=== PATIENT | female | born 1935 | race Caucasian/White ===

== ENCOUNTER 2019-05-17 16:10 | Outpatient (CLI) | payer MEDICARE, OTHER, SELFPAY ==
--- NOTE | 2019-05-17 | CTR_ITS ---
PROCEDURE INFORMATION: Exam: CT Lumbar Spine Without Contrast Exam date and time: 05/17/2019 4:46 PM Age: 83 years old Clinical indication: Injury or trauma; Fall; Initial encounter; Blunt trauma (contusions or hematomas); Additional info: Fall; Lumbar tenderness TECHNIQUE: Imaging protocol: Computed tomography images of the lumbar spine without contrast. Total DLP: 1645.79 mGy-cm Radiation optimization: All CT scans at this facility use at least one of these dose optimization techniques: automated exposure control; mA and/or kV adjustment per patient size (includes targeted exams where dose is matched to clinical indication); or iterative reconstruction. COMPARISON: Lumbar Spine Flex/Extens [id number] 08/08/2017 3:05 PM FINDINGS: Vertebrae: There is severe scoliosis of the lumbar spine with approximately 42 degrees of curvature from T11 through L2 concave to the right approximately 30 degrees of curvature concave to the left from T3 through S1. No fracture is identified. Discs/Spinal canal/Neural foramina: There is severe narrowing of all of the intervertebral disc spaces with spurring along the right side of the upper lumbar spine and the left side of the lower lumbar spine. There is slight lateral subluxation towards the left at L3-L4 and there may be mild foraminal narrowing on the left side at L4-L5 and L5-S1. Vasculature: Atherosclerotic changes are present in the abdominal aorta without evidence of aneurysm. Soft tissues: Unremarkable. CT/CT lumbar spine wo con* [id number] IMPRESSION: Advanced degenerative changes and scoliosis in the lumbar spine. No fracture is identified. Radiation Dose CTDIVOL = (mGy): DLP = 1645.79 (mGy-cm)
--- NOTE | 2019-05-17 | CTR_ITS ---
PROCEDURE INFORMATION: Exam: CT Pelvis Without Contrast; Skeletal Exam date and time: 05/17/2019 4:46 PM Age: 83 years old Clinical indication: Injury or trauma; Fall; Initial encounter; Blunt trauma (contusions or hematomas); Bilateral; Pelvic region; Additional info: Fall; Pelvis pain TECHNIQUE: Imaging protocol: Computed tomography images of the pelvis without contrast. Exam focused on the skeletal structures. Total DLP: 264.79 mGy-cm Radiation optimization: All CT scans at this facility use at least one of these dose optimization techniques: automated exposure control; mA and/or kV adjustment per patient size (includes targeted exams where dose is matched to clinical indication); or iterative reconstruction. COMPARISON: No relevant prior studies available. FINDINGS: Bones/joints: No acute fracture is identified. There are old healed fractures of the left inferior and superior pubic rami. Degenerative changes are present in the lower lumbar spine and in the pubic symphysis. Soft tissues: Unremarkable. CT/CT pelvis con [id number] IMPRESSION: No acute fracture is identified. Radiation Dose CTDIVOL = (mGy): DLP = 264.79 (mGy-cm)
== END 2019-05-17 16:11 | disposition home or self-care (01) ==
LOC: RAD 16:17
PROVIDERS: Family Provider Family Medicine; PCP Family Medicine; Visit Provider Family Medicine
DX: M54.5 Low back pain (principal); R10.2 Pelvic and perineal pain; M25.551 Pain in right hip; W19.XXXA Unspecified fall, initial encounter
CPT/HCPCS: 72131; 72192

== ENCOUNTER 2020-02-22 13:08 | Outpatient (CLI) | payer MEDICARE, OTHER, SELFPAY ==
--- NOTE | 2020-02-22 13:17 | MM_ITS ---
WS: [id number] BILATERAL DIGITAL SCREENING MAMMOGRAPHY WITH CAD CLINICAL INFORMATION: SCREENING HISTORY: Screening mammogram. No current complaints. COMPARISON: [id number] TECHNIQUE: Bilateral CC and MLO views. FINDINGS: The breasts are composed of heterogeneous fibroglandular density tissue, which can limit the detectio n of small underlying mass lesions. No suspicious mass, asymmetry, calcifications, or architectural d istortion. No evidence of malignancy. Punctate and lucent center calcifications. Vascular calcificati on. MM/[place] [id number] IMPRESSION: BI-RADS: 2-Benign FOLLOW UP: 1 Year Follow-up Recommend return to annual screening mammography.
== END 2020-02-22 13:09 | disposition home or self-care (01) ==
LOC: RADSHAW 13:13
PROVIDERS: Family Provider Family Medicine; PCP Family Medicine; Visit Provider Family Medicine
DX: Z12.31 Encounter for screening mammogram for malignant neoplasm of breast (principal)
CPT/HCPCS: 77067

== ENCOUNTER 2021-04-23 10:23 | Outpatient (CLI) | payer MEDICARE, OTHER, SELFPAY ==
--- NOTE | 2021-04-23 10:34 | MM_ITS ---
WS: [id number] SCREENING DIGITAL MAMMOGRAM WITH CAD HISTORY: SCREENING COMPARISON: 12/09/2014, 02/22/2020, 01/16/2019 Bilateral CC and MLO views submitted. Computer aided detection analyzed. Breast composition: The breasts are heterogeneously dense, which may obscure small masses. There is a n asymmetry in the posterior RIGHT breast on the MLO projection. This may correspond to a mole but th e marker is displaced posteriorly. Not definitely visualized on prior examinations. There are benign calcifications and vascular calcifications in each breast. No architectural distortion. MM/[place] [id number] IMPRESSION: BI-RADS: 0-Incomplete: Need additional imaging evaluation FOLLOW UP: Need Additional Imaging LEFT breast: Spot compression views (MLO). True ML. Ultrasound to follow if abn ormality persists. Recommend placing mole marker directly over the skin lesion prior to the RIGHT MLO projection.
== END 2021-04-23 10:24 | disposition home or self-care (01) ==
LOC: RADSHAW 10:32
PROVIDERS: PCP Family Medicine; Visit Provider Family Medicine
DX: Z12.31 Encounter for screening mammogram for malignant neoplasm of breast (principal)
CPT/HCPCS: 77067

== ENCOUNTER 2021-05-12 10:41 | Outpatient (CLI) | payer MEDICARE, OTHER, SELFPAY ==
--- NOTE | 2021-05-12 10:52 | US_ITS ---
WS: [id number] ADDITIONAL VIEWS RIGHT BREAST RIGHT breast ultrasound, limited HISTORY: RT BREAST ASYMMETRY COMPARISON: 04/23/2021, [place] 02/22/2020 and 01/16/2019 Compression views right CC and MLO projection. True ML also submitted. 7 mm nodule persists in the po sterior RIGHT breast. This nodule is separate from the mole markers. This asymmetry is new as compare d to prior examinations. RIGHT breast ultrasound, limited. Ovoid, slightly lobulated cystic mass against the posterior chest wall at 5:00, 3 cm from the nipple. This mass measures 4 x 5 x 3 mm. This does correspond in size and location and shape to the mammogra phic abnormality. No additional mass is identified. US/US breast RT limited* [id number] IMPRESSION: BI-RADS: 2-Benign FOLLOW-UP: 1 Year Follow-up
== END 2021-05-12 10:42 | disposition home or self-care (01) ==
LOC: RADSHAW 10:48
PROVIDERS: PCP Family Medicine; Visit Provider Family Medicine
DX: N64.89 Other specified disorders of breast (principal); N63.14 Unspecified lump in the right breast, lower inner quadrant
CPT/HCPCS: 76642; 77065

== ENCOUNTER 2021-12-15 15:14 | Emergency (ER) | payer MEDICARE, OTHER, SELFPAY ==
[2021-12-15 15:15] VITALS: BP 166/77; PULSE 60; RESP 18; TEMP 36.8; O2SAT 98
[2021-12-15 15:20] VITALS: BP 167/86; PULSE 67; O2SAT 96
[2021-12-15 16:12] LABS: Basophils % 0.1 %; Hematocrit 37.6 % (37.0-47.0); Hemoglobin 12.7 g/dL (11.5-15.3); Lymphocytes # 0.7 10^3/uL (0.8-4.8); Lymphocytes % 8.7 %; Mean Corpuscular HGB Conc 33.8 g/dL (30.0-36.0); Mean Corpuscular Hemoglobin 29.7 pg (28.0-34.0); Mean Corpuscular Volume 87.9 fl (81-99); Mean Platelet Volume 10.6 fL (7.4-10.4); Monocytes # 0.2 10^3/uL (0.2-0.9); Monocytes % 2.6 %; Neutrophils # 6.85 10^3/uL (1.8-7.7); Neutrophils % 88.1 %; Nucleated Red Blood Cells % 0 %; Platelet Count 219 10^3/cmm (130-400); Red Blood Count 4.28 10^6/uL (4.1-5.3); Red Cell Distribution Width 14.1 % (12.1-15.1); White Blood Count 7.8 10^3/uL (4.0-10.0)
[2021-12-15 16:20] VITALS: BP 166/76; PULSE 70; O2SAT 97
[2021-12-15] MEDS: sodium chloride 0.9% 500 ML 999 ML IV (16:28)
[2021-12-15 16:33] LABS: Anion Gap 14.3 (5-19); Blood Urea Nitrogen 9 mg/dL (8-23); Calcium 8.8 mg/dL (8.5-10.5); Carbon Dioxide 24 mmol/L (22-29); Chloride 98 mmol/L (98-107); Glucose 133 mg/dL (65-115); Osmolality Calculated 277 mOsm/kg (285-295); Potassium 3.3 mmol/L (3.5-5.1); Sodium 133 mmol/L (136-145)
--- NOTE | 2021-12-15 16:57 | XRR_ITS ---
PROCEDURE INFORMATION: Exam: XR Chest Exam date and time: 12/15/2021 5:07 PM Age: 86 years old Clinical indication: Cough TECHNIQUE: Imaging protocol: Radiologic exam of the chest. Views: 1 view. COMPARISON: [place] [id number] 05/12/2021 11:16 AM FINDINGS: Lungs: Bibasilar atelectasis versus minimal infiltrate. Pleural spaces: Unremarkable. No pleural effusion. No pneumothorax. Heart/Mediastinum: Unremarkable. No cardiomegaly. Bones/joints: Unremarkable. XR/XR chest 1V portable [id number] IMPRESSION: Bibasilar atelectasis versus minimal infiltrate.
--- NOTE | 2021-12-15 16:58 | W.ED.NAVMDI ---
Documented by User: Manuel Purdy DO 12/31/21 07:04 HPI - Nausea/Vomiting/Diarrhea General: Chief complaint: Nausea/Vomiting/Diarrhea Stated complaint: N/V/ HAS A UTI Time Seen by Provider: 12/15/21 15:18 Source: patient Mode of arrival: ambulatory Limitations: no limitations History of Present Illness: 86-year-old female who presents to the emergency room complaining of nausea and vomiting was recently diagnosed with UTI and started on cefuroxime. She has not been eating well. Loss of appetite she has some Alzheimer's and has been increasingly confused. No hematochezia melena hematemesis or coffee-ground emesis. MD elicited complaint: nausea and other (UTI) Onset (ago): day(s) Description of diarrhea: semi-solid Associated nausea: Yes Associated abdominal pain: No Severity: mild Exacerbating factors: none Relieving factors: none Associated symtoms: Reports altered mental status and nausea; Denies bloating, change in vision, chest pain, cough, diaphoresis, decreased urine output, dizziness, dysuria, epistaxis, fatigue, fecal incontinence, fevers/chills, headache(s), anorexia, malaise, myalgias, numbness, palpitations, rash, short of breath, syncope, tenesmus, tinnitus or weakness Review of Systems Const: Denies: fever(s), chills, fatigue, malaise or diaphoresis Eyes: Denies: change in vision ENMT: Denies: tinnitus or epistaxis Card: Denies: chest pain, palpitations or syncope Resp: Denies: dyspnea, productive cough or non-productive cough GI: Reports: nausea and vomiting; Denies: abdominal pain, bloating or fecal incontinence : Denies: dysuria Skin/Breast: Denies: rash or pruritus Neuro: Denies: headache(s) or dizziness PFSH ED PFSH: Medical History Asthma Cystocele, midline DVT (deep venous thrombosis) GERD (gastroesophageal reflux disease) IBS (irritable bowel syndrome) Osteoporosis Rectocele SOB (shortness of breath) Tachycardia Surgical History S/P hernia repair S/P left rotator cuff repair Family History Father CAD (coronary artery disease) Atrial fibrillation Myocardial infarction Mother CAD (coronary artery disease) Diabetes Myocardial infarction Family/Other Cancer Social History Smoking and tobacco status: never smoked Alcohol intake: never Lives independently: Yes Marital status: / service: No Current occupational status: retired Current gender identity: Male and Female [place]/Muslim: Tenriism Agree to transfusion: Yes Physical Exam Const: COMMON NORMALS: no acute distress EXAM LIMITATIONS: altered mental status GENERAL APPEARANCE: cooperative and comfortable ORIENTATION/CONSCIOUSNESS: Yes awake HENMT: COMMON NORMALS: normocephalic and atraumatic HEAD & SCALP: normocephalic and atraumatic Resp: COMMON NORMALS: normal respiratory effort, No retractions, No use of accessory muscles and clear to auscultation bilaterally AUSCULTATION: clear to auscultation bilaterally Cardio: COMMON NORMALS: regular rate, regular rhythm and No murmurs present (Cardio) RATE: regular rate RHYTHM: regular rhythm GI: COMMON NORMALS: Soft to palpation and No hepatosplenomegaly present AUSCULTATION: Yes normoactive bowel sounds PALPATION: Yes Soft to palpation, No Tenderness to palpation present (GI), No Guarding due to palpation present (GI) and Yes No hepatosplenomegaly present Extremity: COMMON NORMALS: normal to inspection, capillary refill normal, no clubbing, cyanosis or edema, no calf tenderness and no pedal edema Skin: COMMON NORMALS: no rashes or lesions noted GENERAL SKIN EXAM: no rashes or lesions noted Course Vital Signs: Vital signs: Vital Signs Temperature 98.2 F 12/15/21 15:15 Pulse Rate 69 12/15/21 17:20 Respiratory Rate 18 12/15/21 15:15 Blood Pressure 157/71 12/15/21 17:20 Pulse Oximetry 97 12/15/21 17:20 Oxygen Delivery Me thod 12/15/21 17:20 MDM - Nausea/Vomiting/Diarrhea Medical Records I reviewed the patient's medical records. Lab Data I reviewed the patient's lab results. : 12/15/21 16:00 12/15/21 16:00 Radiology Impressions Chest X-Ray 12/15/21 16:57 IMPRESSION: Bibasilar atelectasis versus minimal infiltrate. Laboratory Results WBC 7.8 10^3/uL (4.0-10.0) 12/15/21 16:00 RBC 4.28 10^6/uL (4.1-5.3) 12/15/21 16:00 Hgb 12.7 g/dL (11.5-15.3) 12/15/21 16:00 Hct 37.6 % (37.0-47.0) 12/15/21 16:00 MCV 87.9 fl (81-99) 12/15/21 16:00 MCH 29.7 pg (28.0-34.0) 12/15/21 16:00 MCHC 33.8 g/dL (30.0-36.0) 12/15/21 16:00 RDW 14.1 % (12.1-15.1) 12/15/21 16:00 Plt Count 219 10^3/cmm (130-400) 12/15/21 16:00 MPV 10.6 fL (7.4-10.4) H 12/15/21 16:00 Neut % (Auto) 88.1 % 12/15/21 16:00 Lymph % (Auto) 8.7 % 12/15/21 16:00 Nelson % (Auto) 2.6 % 12/15/21 16:00 Eos % (Auto) 0.0 % 12/15/21 16:00 Baso % (Auto) 0.1 % 12/15/21 16:00 Neut # (Auto) 6.85 10^3/uL (1.8-7.7) 12/15/21 16:00 Lymph # (Auto) 0.7 10^3/uL (0.8-4.8) L 12/15/21 16:00 Nelson # (Auto) 0.2 10^3/uL (0.2-0.9) 12/15/21 16:00 Eos # (Auto) 0.0 10^3/uL (0.0-0.8) 12/15/21 16:00 Baso # (Auto) 0.0 10^3/uL (0.0-0.1) 12/15/21 16:00 Nucleated RBC % (auto) 0 % 12/15/21 16:00 Nucleated RBCs # 0.0 /100WBC 12/15/21 16:00 Sodium 133 mmol/L (136-145) L 12/15/21 16:00 Potassium 3.3 mmol/L (3.5-5.1) L 12/15/21 16:00 Chloride 98 mmol/L (98-107) 12/15/21 16:00 Carbon Dioxide 24 mmol/L (22-29) 12/15/21 16:00 Anion Gap 14.3 (5-19) 12/15/21 16:00 BUN 9 mg/dL (8-23) 12/15/21 16:00 Creatinine 0.4 mg/dL (0.5-0.9) L 12/15/21 16:00 GFR Calculation Not Reportable 12/15/21 16:00 Glucose 133 mg/dL (65-115) H 12/15/21 16:00 Calculated Osmolality 277 mOsm/kg (285-295) L 12/15/21 16:00 Calcium 8.8 mg/dL (8.5-10.5) 12/15/21 16:00 Urine Color Yellow (Yellow) 12/15/21 17:59 Urine Appearance Clear (CLEAR) 12/15/21 17:59 Urine pH 8 (5-7) H 12/15/21 17:59 Ur Specific [place] 1.010 (1.005-1.030) 12/15/21 17:59 Urine Protein Neg (Negative) 12/15/21 17:59 Urine Glucose (UA) 1+ (Normal) H 12/15/21 17:59 Urine Ketones 1+ (Negative) H 12/15/21 17:59 Urine Blood Neg (Negative) 12/15/21 17:59 Urine Nitrate Negative (Negative) 12/15/21 17:59 Urine Bilirubin Neg (Negative) 12/15/21 17:59 Prot Sulfosalicylic Acd Negative (Negative) 12/15/21 17:59 Urine Urobilinogen Norm mg/dL (Negative) 12/15/21 17:59 Ur Leukocyte Esterase Negative (Negative) 12/15/21 17:59 Discharge Plan Discharge Patient Disposition: Home Clinical Impression: Vomiting Condition: Stable Prescriptions: New ondansetron 4 mg tablet,disintegrating 4 mg PO Q6H PRN (Reason: nausea and vomiting) Qty: 14 0RF No Action famotidine [Pepcid] 20 mg tablet 20 mg PO BID cetirizine [Zyrtec] 10 mg tablet 10 mg PO BEDTIME dicyclomine 20 mg tablet 20 mg PO BEDTIME Combivent Respimat 20-100 mcg/actuation mist 2 puff INHALATION QID PRN (Reason: Shortness Of Breath) celecoxib [Celebrex] 200 mg capsule 200 mg PO BEDTIME fluticasone propionate [Flonase Allergy Relief] 50 mcg/actuation spray,suspension 1 spray INTRANASAL BID cefuroxime axetil 250 mg tablet 250 mg PO BID donepezil 5 mg tablet 5 mg PO QAM metoprolol succinate 50 mg tablet extended release 24 hr 50 mg PO BEDTIME Calcium 600 600 mg calcium (1,500 mg) Tablet 600 mg PO DAILY losartan 25 mg tablet 25 mg PO QAM Glucosamine Chondroitin 550-30-1 mg Capsule 1 cap PO DAILY Discharge Orders: Discharge ED (Routine); Ordered 12/15/21 Ordered By: Thomas Gutierrez Referrals: Fitz Fowler MD [Primary Care Provider] - Discharge Diet: Advance as tolerated Discharge Activity: Resume usual activity Patient Instructions: Acute Nausea and Vomiting (ED) Coding Level of Care Code ED Product Assurance Engineer for Chg Fwd Documented by User: Thomas Gutierrez MD 12/15/21 19:30 HPI - Nausea/Vomiting/Diarrhea General: Chief complaint: Nausea/Vomiting/Diarrhea Stated complaint: N/V/ HAS A UTI Time Seen by Provider: 12/15/21 15:18 [facility] ED PFSH: Medical History Asthma Cystocele, midline DVT (deep venous thrombosis) GERD (gastroesophageal reflux disease) IBS (irritable bowel syndrome) Osteoporosis Rectocele SOB (shortness of breath) Tachycardia Surgical History S/P hernia repair S/P left rotator cuff repair Family History Father CAD (coronary artery disease) Atrial fibrillation Myocardial infarction Mother CAD (coronary artery disease) Diabetes Myocardial infarction Family/Other Cancer Social History Smoking and tobacco status: never smoked Alcohol intake: never Lives independently: Yes Marital status: / service: No Current occupational status: retired Current gender identity: Male and Female [place]/Muslim: Tenriism Agree to transfusion: Yes Course Vital Signs: Vital signs: Vital Signs Temperature 98.2 F 12/15/21 15:15 Pulse Rate 69 12/15/21 17:20 Respiratory Rate 18 12/15/21 15:15 Blood Pressure 157/71 12/15/21 17:20 Pulse Oximetry 97 12/15/21 17:20 Oxygen Delivery Me thod 12/15/21 17:20 MDM - Nausea/Vomiting/Diarrhea Medical Decision Making Patient presents here with weakness along with nausea vomiting she had recently been on the antibiotic for her UTI her UTI has cleared up we will start her antibiotics as it could be causing some of her symptoms she feels improved after Zofran fluids she is able to ambulate the halls she is stable for discharge she is to return if worsening. Lab Data : 12/15/21 16:00 12/15/21 16:00 Radiology Impressions Chest X-Ray 12/15/21 16:57 IMPRESSION: Bibasilar atelectasis versus minimal infiltrate. Laboratory Results WBC 7.8 10^3/uL (4.0-10.0) 12/15/21 16:00 RBC 4.28 10^6/uL (4.1-5.3) 12/15/21 16:00 Hgb 12.7 g/dL (11.5-15.3) 12/15/21 16:00 Hct 37.6 % (37.0-47.0) 12/15/21 16:00 MCV 87.9 fl (81-99) 12/15/21 16:00 MCH 29.7 pg (28.0-34.0) 12/15/21 16:00 MCHC 33.8 g/dL (30.0-36.0) 12/15/21 16:00 RDW 14.1 % (12.1-15.1) 12/15/21 16:00 Plt Count 219 10^3/cmm (130-400) 12/15/21 16:00 MPV 10.6 fL (7.4-10.4) H 12/15/21 16:00 Neut % (Auto) 88.1 % 12/15/21 16:00 Lymph % (Auto) 8.7 % 12/15/21 16:00 Nelson % (Auto) 2.6 % 12/15/21 16:00 Eos % (Auto) 0.0 % 12/15/21 16:00 Baso % (Auto) 0.1 % 12/15/21 16:00 Neut # (Auto) 6.85 10^3/uL (1.8-7.7) 12/15/21 16:00 Lymph # (Auto) 0.7 10^3/uL (0.8-4.8) L 12/15/21 16:00 Nelson # (Auto) 0.2 10^3/uL (0.2-0.9) 12/15/21 16:00 Eos # (Auto) 0.0 10^3/uL (0.0-0.8) 12/15/21 16:00 Baso # (Auto) 0.0 10^3/uL (0.0-0.1) 12/15/21 16:00 Nucleated RBC % (auto) 0 % 12/15/21 16:00 Nucleated RBCs # 0.0 /100WBC 12/15/21 16:00 Sodium 133 mmol/L (136-145) L 12/15/21 16:00 Potassium 3.3 mmol/L (3.5-5.1) L 12/15/21 16:00 Chloride 98 mmol/L (98-107) 12/15/21 16:00 Carbon Dioxide 24 mmol/L (22-29) 12/15/21 16:00 Anion Gap 14.3 (5-19) 12/15/21 16:00 BUN 9 mg/dL (8-23) 12/15/21 16:00 Creatinine 0.4 mg/dL (0.5-0.9) L 12/15/21 16:00 GFR Calculation Not Reportable 12/15/21 16:00 Glucose 133 mg/dL (65-115) H 12/15/21 16:00 Calculated Osmolality 277 mOsm/kg (285-295) L 12/15/21 16:00 Calcium 8.8 mg/dL (8.5-10.5) 12/15/21 16:00 Urine Color Yellow (Yellow) 12/15/21 17:59 Urine Appearance Clear (CLEAR) 12/15/21 17:59 Urine pH 8 (5-7) H 12/15/21 17:59 Ur Specific [place] 1.010 (1.005-1.030) 12/15/21 17:59 Urine Protein Neg (Negative) 12/15/21 17:59 Urine Glucose (UA) 1+ (Normal) H 12/15/21 17:59 Urine Ketones 1+ (Negative) H 12/15/21 17:59 Urine Blood Neg (Negative) 12/15/21 17:59 Urine Nitrate Negative (Negative) 12/15/21 17:59 Urine Bilirubin Neg (Negative) 12/15/21 17:59 Prot Sulfosalicylic Acd Negative (Negative) 12/15/21 17:59 Urine Urobilinogen Norm mg/dL (Negative) 12/15/21 17:59 Ur Leukocyte Esterase Negative (Negative) 12/15/21 17:59 Discharge Plan Discharge Patient Disposition: Home Clinical Impression: Vomiting Condition: Stable Prescriptions: New ondansetron 4 mg tablet,disintegrating 4 mg PO Q6H PRN (Reason: nausea and vomiting) Qty: 14 0RF No Action famotidine [Pepcid] 20 mg tablet 20 mg PO BID cetirizine [Zyrtec] 10 mg tablet 10 mg PO BEDTIME dicyclomine 20 mg tablet 20 mg PO BEDTIME Combivent Respimat 20-100 mcg/actuation mist 2 puff INHALATION QID PRN (Reason: Shortness Of Breath) celecoxib [Celebrex] 200 mg capsule 200 mg PO BEDTIME fluticasone propionate [Flonase Allergy Relief] 50 mcg/actuation spray,suspension 1 spray INTRANASAL BID cefuroxime axetil 250 mg tablet 250 mg PO BID donepezil 5 mg tablet 5 mg PO QAM metoprolol succinate 50 mg tablet extended release 24 hr 50 mg PO BEDTIME Calcium 600 600 mg calcium (1,500 mg) Tablet 600 mg PO DAILY losartan 25 mg tablet 25 mg PO QAM Glucosamine Chondroitin 550-30-1 mg Capsule 1 cap PO DAILY Discharge Orders: Discharge ED (Routine); Ordered 12/15/21 Ordered By: Thomas Gutierrez Referrals: Fitz Fowler MD [Primary Care Provider] - Discharge Diet: Advance as tolerated Discharge Activity: Resume usual activity Patient Instructions: Acute Nausea and Vomiting (ED) Coding Level of Care Code ED Product Assurance Engineer for Darius Bowers
--- NOTE | 2021-12-15 16:59 | PC.PHAR ---
pts family verified pts medications and brought in some medication bottles-notes are made in the pharmacy comments
[2021-12-15] MEDS: ondansetron 2 mg/ML SDV 2 mL 4 MG IVP (17:06)
[2021-12-15 17:20] VITALS: BP 157/71; PULSE 69; O2SAT 97
[2021-12-15 18:12] LABS: Add Urine Microscopic? NO; Charge for UA Resulting for Rev
[2021-12-15 18:34] LABS: Bilirubin Urine Neg (Negative); Blood Urine Neg (Negative); Glucose Urine UA 1+ (Normal); Ketones Urine 1+ (Negative); Leukocyte Esterase Urine Negative (Negative); Nitrate Urine Negative (Negative); Protein Urine Neg (Negative); Sulfosalicylic Acid Urine Negative (Negative); Urine Appearance Clear (CLEAR); Urine Color Yellow (Yellow); Urobilinogen Urine Norm (Negative); pH Urine 8 (5-7)
== END 2021-12-15 19:45 | disposition home or self-care (01) ==
PROVIDERS: Family Medicine; Emergency Provider Emergency Medicine; PCP Family Medicine
DX: R11.10 Vomiting, unspecified (principal); G30.9 Alzheimer's disease, unspecified; F02.80 Dementia in other diseases classified elsewhere, unspecified severity, without behavioral disturbance, psychotic disturbance, mood disturbance, and anxiety
CPT/HCPCS: 71045; 80048; 81003; 85025; 96361; 96374; 99284; J2405; J7040

== ENCOUNTER 2022-04-14 14:48 | Emergency (ER) | payer MEDICARE, OTHER, SELFPAY ==
[2022-04-14 14:58] VITALS: BP 176/98; PULSE 62; RESP 18; TEMP 36.5; O2SAT 94; BMI 25.9
[2022-04-14 15:02] VITALS: BP 176/98; PULSE 62; RESP 18; O2SAT 96
--- NOTE | 2022-04-14 15:03 | ED_ITS ---
Documented by User: Manuel Purdy DO 04/14/22 16:54 HPI - Fall General: Chief Complaint: Fall Stated Complaint: Fall, Hit head Time Seen by Provider: 04/14/22 14:56 Source: patient Mode of arrival: ambulatory History of Present Illness: 86-year-old female who presents emergency room she was walking back to her home she stumbled issue approached the door and fell and hit the left side of her head has a laceration extending from the frontal region into the hairline is approximately 15 cm in length. She can remember the events very well she is not on any anticoagulants. She is awake alert and oriented cannot recall her last tetanus shot MD complaint: fall Onset (ago): minute(s) Fall from: standing Place fall occurred: home Loss of consciousness: None Prolonged down time: no Context: tripped/slipped Location of injury: head and face Associated symptoms-after fall: Denies abdominal pain or chest pain Review of Systems Const: Denies: fever(s), chills, body aches, change in appetite, fatigue or malaise ENMT: Denies: throat pain, ear or mastoid pain, nasal discharge or nasal congestion Card: Denies: chest pain, edema, dyspnea on exertion or orthopnea Resp: Denies: dyspnea, productive cough or non-productive cough GI: Denies: abdominal pain, nausea, vomiting, hematemesis, coffee ground emesis, diarrhea, constipation, bloating, hematochezia or melena : Denies: flank pain, difficulty voiding, dysuria, urinary frequency or urinary urgency Skin/Breast: Denies: rash or pruritus PFSH ED PFSH: Medical History Asthma Cystocele, midline DVT (deep venous thrombosis) GERD (gastroesophageal reflux disease) IBS (irritable bowel syndrome) Osteoporosis Rectocele SOB (shortness of breath) Tachycardia Surgical History S/P hernia repair S/P left rotator cuff repair Family History Father CAD (coronary artery disease) Atrial fibrillation Myocardial infarction Mother CAD (coronary artery disease) Diabetes Myocardial infarction Family/Other Cancer Social History (Reviewed 04/14/22 @ 16:52 by HARSHAD Hernandez Smoking and tobacco status: never smoked Alcohol intake: never Lives independently: Yes Marital status: / service: No Current occupational status: retired Current gender identity: Male and Female [place]/Holiness: Sikhism Agree to transfusion: Yes Physical Exam Const: GENERAL APPEARANCE: cooperative and comfortable ORIENTATION/CONSCIOUSNESS: Yes awake HENMT: COMMON NORMALS: normocephalic and hearing grossly normal bilaterally HEAD & SCALP: normocephalic OTHER: 15 cm laceration extending from the upper portion of the left side of the forehead into the scalp linear. Slightly gaping no active bleeding Neck/C-Spine: COMMON NORMALS: full ROM, no lymphadenopathy and supple Resp: COMMON NORMALS: normal respiratory effort, No retractions, No use of accessory muscles and clear to auscultation bilaterally AUSCULTATION: clear to auscultation bilaterally Cardio: COMMON NORMALS: regular rate, regular rhythm and No murmurs present (Cardio) RATE: regular rate RHYTHM: regular rhythm GI: COMMON NORMALS: Soft to palpation and No hepatosplenomegaly present AUSCULTATION: Yes normoactive bowel sounds PALPATION: Yes Soft to palpation, No Tenderness to palpation present (GI), No Guarding due to palpation present (GI) and Yes No hepatosplenomegaly present Extremity: COMMON NORMALS: normal to inspection, capillary refill normal, no clubbing, cyanosis or edema, no calf tenderness and no pedal edema Skin: COMMON NORMALS: no rashes or lesions noted GENERAL SKIN EXAM: no rashes or lesions noted Course Vital Signs: Vital signs: Vital Signs Temperature 97.7 F 04/14/22 14:58 Pulse Rate 62 04/14/22 14:58 Respiratory Rate 18 04/14/22 14:58 Blood Pressure 176/98 04/14/22 14:58 Pulse Oximetry 94 04/14/22 14:58 Oxygen Delivery Me thod 04/14/22 14:58 MDM - Fall Medical Decision Making CT of the head and neck are negative. Patient able to move all other extremities without difficulty. We will discharge patient home wound care instructions given. Laceration sewed by midlevel see her note. Medical Records I reviewed the patient's medical records. Lab Data I reviewed the patient's lab results. 04/14/22 15:12 04/14/22 15:12 Radiology Impressions Cervical Spine CT 04/14/22 15:04 IMPRESSION: No acute findings. Head CT 04/14/22 15:04 IMPRESSION: No acute intracranial abnormality. Laboratory Results WBC 5.7 10^3/uL (4.0-10.0) 04/14/22 15:12 RBC 4.39 10^6/uL (4.1-5.3) 04/14/22 15:12 Hgb 13.4 g/dL (11.5-15.3) 04/14/22 15:12 Hct 41.0 % (37.0-47.0) 04/14/22 15:12 MCV 93.4 fl (81-99) 04/14/22 15:12 MCH 30.5 pg (28.0-34.0) 04/14/22 15:12 MCHC 32.7 g/dL (30.0-36.0) 04/14/22 15:12 RDW 12.9 % (12.1-15.1) 04/14/22 15:12 Plt Count 249 10^3/cmm (130-400) 04/14/22 15:12 MPV 10.2 fL (7.4-10.4) 04/14/22 15:12 Neut % (Auto) 69.2 % 04/14/22 15:12 Lymph % (Auto) 20.1 % 04/14/22 15:12 [place] % (Auto) 8.6 % 04/14/22 15:12 Eos % (Auto) 1.4 % 04/14/22 15:12 Baso % (Auto) 0.7 % 04/14/22 15:12 Neut # (Auto) 3.96 10^3/uL (1.8-7.7) 04/14/22 15:12 Lymph # (Auto) 1.2 10^3/uL (0.8-4.8) 04/14/22 15:12 [place] # (Auto) 0.5 10^3/uL (0.2-0.9) 04/14/22 15:12 Eos # (Auto) 0.1 10^3/uL (0.0-0.8) 04/14/22 15:12 Baso # (Auto) 0.0 10^3/uL (0.0-0.1) 04/14/22 15:12 Nucleated RBC % (auto) 0 % 04/14/22 15:12 Nucleated RBCs # 0.0 /100WBC 04/14/22 15:12 Sodium 137 mmol/L (136-145) 04/14/22 15:12 Potassium 4.2 mmol/L (3.5-5.1) 04/14/22 15:12 Chloride 102 mmol/L (98-107) 04/14/22 15:12 Carbon Dioxide 25 mmol/L (22-29) 04/14/22 15:12 Anion Gap 14.2 (5-19) 04/14/22 15:12 BUN 16 mg/dL (8-23) 04/14/22 15:12 Creatinine 0.5 mg/dL (0.5-0.9) 04/14/22 15:12 GFR Calculation Not Reportable 04/14/22 15:12 Glucose 98 mg/dL (65-115) 04/14/22 15:12 Calculated Osmolality 285 mOsm/kg (285-295) 04/14/22 15:12 Calcium 9.4 mg/dL (8.5-10.5) 04/14/22 15:12 Discharge Plan Discharge Patient Disposition: Home Clinical Impression: Laceration of head, Fall, Mild dementia Condition: Stable Prescriptions: No Action famotidine [Pepcid] 20 mg tablet 20 mg PO BID dicyclomine 20 mg tablet 20 mg PO BEDTIME PRN (Reason: Gastrointestinal Spasms Or Cramping) celecoxib [Celebrex] 200 mg capsule 200 mg PO BEDTIME fluticasone propionate [Flonase Allergy Relief] 50 mcg/actuation spray,suspension 1 spray INTRANASAL BID metoprolol succinate 50 mg tablet extended release 24 hr 50 mg PO BEDTIME calcium carbonate [Calcium 600] 600 mg calcium (1,500 mg) Tablet 600 mg PO DAILY Glucosamine Chondroitin 550-30-1 mg Capsule 1 cap PO DAILY haloperidol 0.5 mg tablet 0.5 mg PO BID PRN (Reason: Anxiety) Charlton' Liqui-Gels 100 mg Capsule 100 mg PO DAILY Discharge Orders: Discharge ED (Routine); Ordered 04/14/22 Ordered By: Manuel Purdy Referrals: Fitz Fowler MD [Primary Care Provider] - Discharge Diet: Usual diet Discharge Activity: Resume usual activity Patient Instructions: Care For Your Stitches (ED), Facial Laceration (ED), Opioid Safety, Pain Management Activity Restrictions/Additional Instructions: You were seen for a fall. Laceration was repaired sutures to be removed to around 7 to 10 days. Routine wound care he can apply topical antibiotic ointment once daily [id number]. Tylenol or ibuprofen as needed for headache or discomfort. Follow-up with your primary care doctor as needed. Coding Level of Care Code ED Jackhammer Splitter Operator for Chg Fwd Documented by User: ALAN Maria 04/14/22 16:40 HPI - Fall General: Chief Complaint: Fall Stated Complaint: Fall, Hit head Time Seen by Provider: 04/14/22 14:56 PFSH ED PFSH: Medical History Asthma Cystocele, midline DVT (deep venous thrombosis) GERD (gastroesophageal reflux disease) IBS (irritable bowel syndrome) Osteoporosis Rectocele SOB (shortness of breath) Tachycardia Surgical History S/P hernia repair S/P left rotator cuff repair Family History Father CAD (coronary artery disease) Atrial fibrillation Myocardial infarction Mother CAD (coronary artery disease) Diabetes Myocardial infarction Family/Other Cancer Social History Smoking and tobacco status: never smoked Alcohol intake: never Lives independently: Yes Marital status: / service: No Current occupational status: retired Current gender identity: Male and Female [place]/Holiness: Sikhism Agree to transfusion: Yes Procedures Laceration Laceration 1: Site: scalp and face Side (If applicable): left Size (cm): 12 Description: linear Depth: simple, single layer Local Anesthetic: lidocaine 1% Amount of anesthesia used (mL): 7.0 Pre-repair: wound explored and irrigated extensively Skin layer closed with: nylon Size (cm): 4-0 Number of sutures: 9 Technique: simple, interrupted Course ED course: I was consulted by Dr. Purdy to repair patient's scalp/facial laceration. This was repaired as documented. Other than laceration repair-I did not actively participate in any portion of patient's care ES Vital Signs: Vital signs: Vital Signs Temperature 97.7 F 04/14/22 14:58 Pulse Rate 62 04/14/22 14:58 Respiratory Rate 18 04/14/22 14:58 Blood Pressure 176/98 04/14/22 14:58 Pulse Oximetry 94 04/14/22 14:58 Oxygen Delivery Me thod 04/14/22 14:58 MDM - Fall Lab Data 04/14/22 15:12 04/14/22 15:12 Radiology Impressions Cervical Spine CT 04/14/22 15:04 IMPRESSION: No acute findings. Head CT 04/14/22 15:04 IMPRESSION: No acute intracranial abnormality. Laboratory Results WBC 5.7 10^3/uL (4.0-10.0) 04/14/22 15:12 RBC 4.39 10^6/uL (4.1-5.3) 04/14/22 15:12 Hgb 13.4 g/dL (11.5-15.3) 04/14/22 15:12 Hct 41.0 % (37.0-47.0) 04/14/22 15:12 MCV 93.4 fl (81-99) 04/14/22 15:12 MCH 30.5 pg (28.0-34.0) 04/14/22 15:12 MCHC 32.7 g/dL (30.0-36.0) 04/14/22 15:12 RDW 12.9 % (12.1-15.1) 04/14/22 15:12 Plt Count 249 10^3/cmm (130-400) 04/14/22 15:12 MPV 10.2 fL (7.4-10.4) 04/14/22 15:12 Neut % (Auto) 69.2 % 04/14/22 15:12 Lymph % (Auto) 20.1 % 04/14/22 15:12 [place] % (Auto) 8.6 % 04/14/22 15:12 Eos % (Auto) 1.4 % 04/14/22 15:12 Baso % (Auto) 0.7 % 04/14/22 15:12 Neut # (Auto) 3.96 10^3/uL (1.8-7.7) 04/14/22 15:12 Lymph # (Auto) 1.2 10^3/uL (0.8-4.8) 04/14/22 15:12 [place] # (Auto) 0.5 10^3/uL (0.2-0.9) 04/14/22 15:12 Eos # (Auto) 0.1 10^3/uL (0.0-0.8) 04/14/22 15:12 Baso # (Auto) 0.0 10^3/uL (0.0-0.1) 04/14/22 15:12 Nucleated RBC % (auto) 0 % 04/14/22 15:12 Nucleated RBCs # 0.0 /100WBC 04/14/22 15:12 Sodium 137 mmol/L (136-145) 04/14/22 15:12 Potassium 4.2 mmol/L (3.5-5.1) 04/14/22 15:12 Chloride 102 mmol/L (98-107) 04/14/22 15:12 Carbon Dioxide 25 mmol/L (22-29) 04/14/22 15:12 Anion Gap 14.2 (5-19) 04/14/22 15:12 BUN 16 mg/dL (8-23) 04/14/22 15:12 Creatinine 0.5 mg/dL (0.5-0.9) 04/14/22 15:12 GFR Calculation Not Reportable 04/14/22 15:12 Glucose 98 mg/dL (65-115) 04/14/22 15:12 Calculated Osmolality 285 mOsm/kg (285-295) 04/14/22 15:12 Calcium 9.4 mg/dL (8.5-10.5) 04/14/22 15:12 Discharge Plan Discharge Patient Disposition: Home Clinical Impression: Laceration of head, Fall, Mild dementia Condition: Stable Prescriptions: No Action famotidine [Pepcid] 20 mg tablet 20 mg PO BID dicyclomine 20 mg tablet 20 mg PO BEDTIME PRN (Reason: Gastrointestinal Spasms Or Cramping) celecoxib [Celebrex] 200 mg capsule 200 mg PO BEDTIME fluticasone propionate [Flonase Allergy Relief] 50 mcg/actuation spray,suspension 1 spray INTRANASAL BID metoprolol succinate 50 mg tablet extended release 24 hr 50 mg PO BEDTIME calcium carbonate [Calcium 600] 600 mg calcium (1,500 mg) Tablet 600 mg PO DAILY Glucosamine Chondroitin 550-30-1 mg Capsule 1 cap PO DAILY haloperidol 0.5 mg tablet 0.5 mg PO BID PRN (Reason: Anxiety) [place]' Liqui-Gels 100 mg Capsule 100 mg PO DAILY Discharge Orders: Discharge ED (Routine); Ordered 04/14/22 Ordered By: Manuel Purdy Referrals: Fitz Fowler MD [Primary Care Provider] - Discharge Diet: Usual diet Discharge Activity: Resume usual activity Patient Instructions: Care For Your Stitches (ED), Facial Laceration (ED), Opioid Safety, Pain Management Activity Restrictions/Additional Instructions: You were seen for a fall. Laceration was repaired sutures to be removed to around 7 to 10 days. Routine wound care he can apply topical antibiotic ointment once daily [id number]. Tylenol or ibuprofen as needed for headache or discomfort. Follow-up with your primary care doctor as needed. Coding Level of Care Code ED Jackhammer Splitter Operator for Darius Bowers
--- NOTE | 2022-04-14 15:04 | CTR_ITS ---
PROCEDURE INFORMATION: Exam: CT Head Without Contrast Exam date and time: 04/14/2022 3:15 PM Age: 86 years old Clinical indication: Injury or trauma; Fall; Abrasion and blunt trauma (contusions or hematomas); Eye and forehead; Left TECHNIQUE: Imaging protocol: Computed tomography of the head without contrast. Radiation optimization: All CT scans at this facility use at least one of these dose optimization techniques: automated exposure control; mA and/or kV adjustment per patient size (includes targeted exams where dose is matched to clinical indication); or iterative reconstruction. COMPARISON: No relevant prior studies available. RADIATION DOSE METRICS: Total DLP (mGy-cm): 2109.31 FINDINGS: Brain: No hemorrhage. No edema. Moderate diffuse cerebral atrophy and sequela of chronic small vessel ischemic disease. No mass effect. Cerebral ventricles: No ventriculomegaly. Paranasal sinuses: Visualized sinuses are unremarkable. No fluid levels. Mastoid air cells: Visualized mastoid air cells are well aerated. Bones/joints: Unremarkable. No acute fracture. Soft tissues: Left forehead laceration and hematoma noted. CT/CT head wo con* [id number] IMPRESSION: No acute intracranial abnormality.
--- NOTE | 2022-04-14 15:04 | CTR_ITS ---
PROCEDURE INFORMATION: Exam: CT Cervical Spine Without Contrast Exam date and time: 04/14/2022 3:15 PM Age: 86 years old Clinical indication: Injury or trauma; Fall; Blunt trauma TECHNIQUE: Imaging protocol: Computed tomography of the cervical spine without contrast. Radiation optimization: All CT scans at this facility use at least one of these dose optimization techniques: automated exposure control; mA and/or kV adjustment per patient size (includes targeted exams where dose is matched to clinical indication); or iterative reconstruction. COMPARISON: CR XR chest 1V portable [id number] 12/15/2021 5:07 PM RADIATION DOSE METRICS: Total DLP (mGy-cm): 133 FINDINGS: Bones/joints: No acute fracture. Normal alignment. No severe spinal canal stenosis. Lungs: Lung apices are normal. Soft tissues: Unremarkable. CT/CT cervical spin wo con* [id number] IMPRESSION: No acute findings.
[2022-04-14 15:22] LABS: Basophils % 0.7 %; Eosinophils # 0.1 10^3/uL (0.0-0.8); Eosinophils % 1.4 %; Hemoglobin 13.4 g/dL (11.5-15.3); Lymphocytes # 1.2 10^3/uL (0.8-4.8); Lymphocytes % 20.1 %; Mean Corpuscular HGB Conc 32.7 g/dL (30.0-36.0); Mean Corpuscular Hemoglobin 30.5 pg (28.0-34.0); Mean Corpuscular Volume 93.4 fl (81-99); Mean Platelet Volume 10.2 fL (7.4-10.4); Monocytes # 0.5 10^3/uL (0.2-0.9); Monocytes % 8.6 %; Neutrophils # 3.96 10^3/uL (1.8-7.7); Neutrophils % 69.2 %; Nucleated Red Blood Cells % 0 %; Platelet Count 249 10^3/cmm (130-400); Red Blood Count 4.39 10^6/uL (4.1-5.3); Red Cell Distribution Width 12.9 % (12.1-15.1); White Blood Count 5.7 10^3/uL (4.0-10.0)
[2022-04-14 15:38] LABS: Anion Gap 14.2 (5-19); Blood Urea Nitrogen 16 mg/dL (8-23); Calcium 9.4 mg/dL (8.5-10.5); Carbon Dioxide 25 mmol/L (22-29); Chloride 102 mmol/L (98-107); Creatinine Clr Calc Pharmacy 43.3747; Glucose 98 mg/dL (65-115); Osmolality Calculated 285 mOsm/kg (285-295); Potassium 4.2 mmol/L (3.5-5.1); Sodium 137 mmol/L (136-145)
[2022-04-14] MEDS: tetanus-diphtheria tox (adult) 0.5 mL SDV IM (15:49)
--- NOTE | 2022-04-14 16:00 | PC.NURSE ---
PT ARRIVES TO ED WITH APPROX 7CM LACERATION TO THE TOP OF HER HEAD. PT STATES SHE FELL WALKING UP THE STEPS
[2022-04-14 16:02] VITALS: BP 131/69; PULSE 54; O2SAT 98
--- NOTE | 2022-04-14 16:15 | PC.NURSE ---
PETE PETERSON APPLIED 9 STITCHES USING 4.0 SUTURES TO PT HEAD LAC. LACERATION IS NO LONGER BLEEDING. ALL SUTURES INTACT
--- NOTE | 2022-04-14 16:15 | PC.NURSE ---
PETE SEARCH MARKETING COORDINATOR ADMINISTERED 2OML LIDOCAINE TO PT
[2022-04-14 16:30] VITALS: BP 126/69; PULSE 52; O2SAT 95
[2022-04-14] MEDS: lidocaine 1% INJ 10 mL (per mL) 20 ML INJECTION (17:22)
== END 2022-04-14 17:25 | disposition home or self-care (01) ==
PROVIDERS: Emergency Provider Family Medicine; PCP Family Medicine
DX: S01.01XA Laceration without foreign body of scalp, initial encounter (principal); S01.81XA Laceration without foreign body of other part of head, initial encounter; W01.0XXA Fall on same level from slipping, tripping and stumbling without subsequent striking against object, initial encounter; F03.90 Unspecified dementia, unspecified severity, without behavioral disturbance, psychotic disturbance, mood disturbance, and anxiety; Z23 Encounter for immunization
CPT/HCPCS: 12004; 70450; 72125; 80048; 85025; 90471; 90714; 99284

== ENCOUNTER 2022-06-03 14:27 | Inpatient (IN) | payer MEDICARE, OTHER, SELFPAY ==
--- NOTE | 2022-06-03 14:28 | ED_ITS ---
HPI - Fall General: Chief Complaint: Fall Stated Complaint: fall/ hip pain Time Seen by Provider: 06/03/22 14:28 Limitations: altered mental status History of Present Illness: Ms. Olmos is an 86-year-old lady with reported history of dementia presenting to the emergency department for fall under clear circumstances. She was last seen definitively well at 5 PM last night. She was found down in the bedroom and is unsure of how long she was on the ground for. She reports moderate intensity right hip pain. History is otherwise limited by mental state. Review of Systems General: Reports: ROS unobtainable due to mental status [facility] ED PFSH: Medical History (Updated 06/12/22 @ 00:01 by FRANCESCA Ruby) Asthma Closed subcapital fracture of neck of right femur Constipation Cystocele, midline Dementia DVT (deep venous thrombosis) Fall GERD (gastroesophageal reflux disease) IBS (irritable bowel syndrome) Osteoporosis Pneumonia Rectocele Rhabdomyolysis Shortness of Breath SOB (shortness of breath) Tachycardia Urinary retention Surgical History S/P hernia repair S/P left rotator cuff repair Family History Father CAD (coronary artery disease) Atrial fibrillation Myocardial infarction Mother CAD (coronary artery disease) Diabetes Myocardial infarction Family/Other Cancer Social History Smoking and tobacco status: never smoked Alcohol intake: never Lives independently: Yes Marital status: / service: No Current occupational status: retired Current gender identity: Male and Female [place]/Latter-Day: Rastafarian Agree to transfusion: Yes Physical Exam Const: COMMON NORMALS: alert GENERAL APPEARANCE: cooperative and well developed HENMT: COMMON NORMALS: normocephalic and atraumatic HEAD & SCALP: normocephalic and atraumatic THROAT: posterior oropharynx normal OTHER: No collins signs or raccoon eyes. No hemotympanum. No otorrhea or rhinorrhea. Jaw alignment normal. Dentition baseline. No obvious bony step-offs. No septal hematoma. No evidence of ocular entrapment. Eye: COMMON NORMALS: conjunctivae normal CONJUNCTIVA: Yes conjunctivae normal SCLERA: sclerae normal Neck/C-Spine: COMMON NORMALS: supple GENERAL: Yes trachea midline Resp: COMMON NORMALS: clear to auscultation bilaterally EFFORT & INSPECTION: Yes able to speak in complete sentences AUSCULTATION: clear to auscultation bilaterally Cardio: COMMON NORMALS: regular rate and regular rhythm RATE: regular rate RHYTHM: regular rhythm GI: COMMON NORMALS: Soft to palpation PALPATION: Yes Soft to palpation, Yes Tenderness to palpation present (GI), No Guarding due to palpation present (GI) and No Rigid due to palpation Extremity: NARRATIVE EXTREMITY EXAM: Right hip tenderness palpation, distal CMS intact, closed injury. GENERAL: Yes normal exam except as noted and No edema Neuro: COMMON NORMALS: moves all extremities SENSORIUM/ORIENTATION: Yes alert and Yes Orientation impaired Psych: COMMON NORMALS: mental status grossly normal and Normal thought process present THOUGHT PROCESS: Normal thought process present Course Vital Signs: Vital signs: Vital Signs Temperature 98.2 F 06/11/22 13:56 Pulse Rate 87 06/11/22 13:56 Respiratory Rate 17 06/11/22 13:56 Blood Pressure 100/66 06/11/22 13:56 Pulse Oximetry 96 06/11/22 13:56 Oxygen Delivery Me thod 06/11/22 11:53 Oxygen Flow Rate 2 06/10/22 20:00 Fraction of Inspir ed Oxygen 2 06/05/22 08:00 MDM - Fall Medical Decision Making 86-year-old lady presenting to the emergency department for fall under unclear circumstances with unclear downtime. Head to toe exam performed, as noted above. No focal neurologic deficits. Labs notable for leukocytosis, normal hemoglobin and platelet count. Mild hyponatremia on metabolic panel, CK is elevated consistent with rhabdomyolysis likely secondary to prolonged downtime, hematuria present. CT head and cervical spine negative for acute traumatic injury. CT chest abdomen pelvis incidental findings negative for acute traumatic injury with exception of right subcapital impacted displaced hip fracture. Patient has no tenderness in the right upper quadrant correlating with gallbladder abnormality and transaminases are essentially normal. Patient treated with analgesia and IV fluids. Case discussed with orthopedics. Most likely etiology of symptoms is fall with rhabdomyolysis and right hip f racture. The results of ED evaluation were discussed with the patient including plan for admission due to requirement for level of care not available if discharged to prevent significant worsening/deterioration. Patient agreeable with plan. Discussed with hospitalist service who was agreeable to admit patient. Medical Records I reviewed the patient's medical records. Lab Data I reviewed the patient's lab results. 06/08/22 04:43 06/08/22 04:43 Radiology Impressions Cervical Spine CT 06/03/22 14:44 IMPRESSION: 1. Negative for fracture or dislocation. 2. Grade 1 anterolisthesis of C3 relative to C4 of 3.3 mm similar to prior exam appears likely chronic and degenerative. 3. Biapical pleuroparenchymal fibrosis. Chest/Abdomen/Pelvis CT 06/03/22 14:44 IMPRESSION: 1. Negative for traumatic injury to the chest. 2. Cardiomegaly. 3. Coronary artery atherosclerotic calcifications. 4. Emphysematous changes. 5. Left lower lobe atelectasis versus infiltrate. 6. Scattered prominent subcentimeter short axis nonspecific mediastinal lymph nodes. 7. Left lower lobe suspected calcified granuloma. 8. Large hiatal hernia. IMPRESSION: 1. Right subcapital impacted displaced hip fracture. 2. Healed old left superior and inferior pubic rami fractures. 3. Gallbladder is somewhat prominent, ultrasound could further evaluate this. 4. Diverticulosis without diverticulitis. 5. Right kidney cyst, negative for follow up. COMMENTS: Consistent with the [employer]'s Incidental Findings Committee white paper (J Am Lupe Radiol 2018): Any incidental renal lesion less than 1 cm or classified as too small to characterize, or any incidental cystic renal lesion characterized as simple-appearing, is likely benign. No follow-up imaging is recommended for these lesions per consensus recommendations based on imaging criteria. Head CT 06/03/22 14:44 IMPRESSION: 1. No evidence of intracranial hemorrhage or mass effect. 2. Moderate small vessel changes. Mild parenchymal volume loss. 3. No acute intracranial findings. Femur X-Ray 06/03/22 21:49 IMPRESSION: 1. Right subcapital impacted somewhat rotated hip fracture. 2. Arshad catheter in the urinary bladder with contrast without free extravasation seen. Knee X-Ray 06/03/22 21:49 IMPRESSION: 1. Meniscal chondrocalcinosis. 2. Moderate tricompartmental osteoarthritis of the knee. 3. Scattered vascular calcifications. Ankle X-Ray 06/04/22 09:09 IMPRESSION: 1. No fracture or other significant finding. Shoulder X-Ray 06/04/22 09:09 IMPRESSION: 1. High riding humeral head suggesting rotator cuff degeneration. Anchoring screw in the humeral head. 2. Soft tissue calcification along the humeral head suggesting calcific bursitis and/or tendinitis. 3. Degenerative changes. Hip/Pelvis X-Ray 06/04/22 14:06 IMPRESSION: 1. Satisfactory RIGHT hip arthroplasty. 2. Postoperative soft tissue changes around the RIGHT hip. Chest X-Ray 06/06/22 09:35 IMPRESSION: Stable pulmonary vascular congestion with worsening left lower lobe infiltrate concerning for superimposed pneumonia. KUB X-Ray 06/10/22 09:12 IMPRESSION: Moderate retained fecal material as above. Laboratory Results WBC 16.7 10^3/uL (4.0-10.0) H 06/03/22 15: RBC 4.03 10^6/uL (4.1-5.3) L 06/03/22 15:28 Hgb 12.0 g/dL (11.5-15.3) 06/03/22 15: Hct 36.9 % (37.0-47.0) L 06/03/22 15: MCV 91.6 fl (81-99) 06/03/22 15: MCH 29.8 pg (28.0-34.0) 06/03/22 15:28 MCHC 32.5 g/dL (30.0-36.0) 06/03/22 15: RDW 13.2 % (12.1-15.1) 06/03/22 15:28 Plt Count 216 10^3/cmm (130-400) 06/03/22 15:28 MPV 10.2 fL (7.4-10.4) 06/03/22 15:28 Neut % (Auto) 86.1 % 06/03/22 15:28 Lymph % (Auto) 5.2 % 06/03/22 15:28 [place] % (Auto) 8.1 % 06/03/22 15:28 Eos % (Auto) 0.0 % 06/03/22 15:28 Baso % (Auto) 0.2 % 06/03/22 15:28 Neut # (Auto) 14.34 10^3/uL (1.8-7.7) H 06/03/22 15:28 Lymph # (Auto) 0.9 10^3/uL (0.8-4.8) 06/03/22 15:28 [place] # (Auto) 1.4 10^3/uL (0.2-0.9) H 06/03/22 15:28 Eos # (Auto) 0.0 10^3/uL (0.0-0.8) 06/03/22 15:28 Baso # (Auto) 0.0 10^3/uL (0.0-0.1) 06/03/22 15:28 Nucleated RBC % (auto) 0 % 06/03/22 15:28 Nucleated RBCs # 0.0 /100WBC 06/03/22 15:28 Sodium 134 mmol/L (136-145) L 06/03/22 15: Potassium 3.9 mmol/L (3.5-5.1) 06/03/22 15: Chloride 101 mmol/L (98-107) 06/03/22 15: Carbon Dioxide 21 mmol/L (22-29) L 06/03/22 15:28 Anion Gap 15.9 (5-19) 06/03/22 15:28 BUN 17 mg/dL (8-23) 06/03/22 15:28 Creatinine 0.4 mg/dL (0.5-0.9) L 06/03/22 15:28 GFR Calculation Not Reportable 06/03/22 15: Glucose 112 mg/dL (65-115) 06/03/22 15:28 Calculated Osmolality 280 mOsm/kg (285-295) L 06/03/22 15: Calcium 9.2 mg/dL (8.5-10.5) 06/03/22 15:28 Total Bilirubin 0.8 mg/dL (0.15-1.2) 06/03/22 15:28 AST 40 U/L (0-32) H 06/03/22 15:28 ALT 15 U/L (0-33) 06/03/22 15:28 Alkaline Phosphatase 108 U/L (35-105) H 06/03/22 15:28 Creatine Kinase 1435 U/L (26-192) H* 06/03/22 15:28 Total Protein 6.0 g/dL (6.6-8.7) L 06/03/22 15:28 Albumin 3.6 g/dL (3.5-5.2) 06/03/22 15:28 Globulin 2.4 g/dL (1.3-4.6) 06/03/22 15:28 Vitamin B12 150 pg/mL (232-1245) L 06/03/22 15:28 Urine Color Yellow (Yellow) 06/03/22 16:45 Urine Appearance Hazy (CLEAR) A 06/03/22 16:45 Urine pH 6.5 (5-7) 06/03/22 16:45 Ur Specific [place] 1.015 (1.005-1.030) 06/03/22 16:45 Urine Protein Neg (Negative) 06/03/22 16:45 Urine Glucose (UA) 1+ (Normal) H 06/03/22 16:45 Urine Ketones 2+ (Negative) H 06/03/22 16:45 Urine Blood 3+ (Negative) H 06/03/22 16:45 Urine Nitrate Negative (Negative) 06/03/22 16:45 Urine Bilirubin Neg (Negative) 06/03/22 16:45 Urine Urobilinogen Neg mg/dL (Negative) 06/03/22 16:45 Ur Leukocyte Esterase Negative (Negative) 06/03/22 16:45 Urine RBC 40-50 /hpf (0-2) H 06/03/22 16:45 Urine WBC Rare /hpf (0-5) 06/03/22 16:45 Ur Squamous Epith Cells None /hpf (0-5) 06/03/22 16:45 Amorphous Sediment Not Reportable 06/03/22 16:45 Urine Bacteria None /hpf (NONE) 06/03/22 16:45 Discharge Plan Discharge Patient Disposition: Admitted As Inpatient Admit Provider: Todd Huynh Clinical Impression: Fall, Closed subcapital fracture of neck of right femur, Rhabdomyolysis Condition: Stable Discharge Diet: Advance as tolerated Discharge Activity: Increase activity as tolerated Coding Level of Care Code ED Automobile Sales Representative for Darius Bowers
[2022-06-03 14:30] VITALS: BP 133/62; PULSE 64; RESP 16; O2SAT 95
--- NOTE | 2022-06-03 14:44 | XR_ITS ---
WS: [id number] Exam: XR hip RT 2-3V wo/w pel* [id number] Date/Time of Exam: 06/03/2022 2:59 PM Reason For Exam: fall, pain, ams There is a displaced subcapital fracture of the right hip. There is superior displacement of the femo ral neck. [id number] DJD of the joint compartment. Soft tissues are unremarkable. Old left isch ial fracture. XR/XR hip RT 2-3V wo/w pel* [id number] IMPRESSION: 1. Displaced subcapital fracture of the right hip. 2. Moderate DJD and osteopenia.
--- NOTE | 2022-06-03 14:44 | CTR_ITS ---
PROCEDURE INFORMATION: Exam: CT Chest With Contrast; Diagnostic Exam date and time: 06/03/2022 3:57 PM Age: 86 years old Clinical indication: Pain and injury or trauma; Generalized; Other: Low back pain, blunt trauma (contusions or hematomas); On breathing; Additional info: Fall, pain, AMS TECHNIQUE: Imaging protocol: Diagnostic computed tomography of the chest with contrast. Contrast material: OMNIPAQUE 350; Contrast volume: 95 ml; Contrast route: INTRAVENOUS (IV); REPORTING DATA: Count of CT and Cardiac NM exams in prior 12 months: This patient has received 4 known CTs and 0 known cardiac nuclear medicine studies in the 12 months prior to the current study. COMPARISON: CR XR chest 1V portable [id number] 12/15/2021 5:07 PM RADIATION DOSE METRICS: Total DLP (mGy-cm): 628.13 FINDINGS: Lungs: Emphysematous changes. Left lower lobe atelectasis versus infiltrate. Left lower lobe suspected calcified granuloma. Pleural spaces: Unremarkable. No pneumothorax. No pleural effusion. Heart: Cardiomegaly. Coronary arteries: Coronary artery atherosclerotic calcifications. Lymph nodes: Scattered prominent subcentimeter short axis nonspecific mediastinal lymph nodes. Vasculature: Unremarkable. No aortic aneurysm. Diaphragm: Large hiatal hernia. Bones/joints: Unremarkable. No acute fracture. Soft tissues: Unremarkable. PROCEDURE INFORMATION: Exam: CT Abdomen And Pelvis With Contrast Exam date and time: 06/03/2022 3:57 PM Age: 86 years old Clinical indication: Pain and injury or trauma; Generalized; Other: Low back pain, blunt trauma (contusions or hematomas); On breathing; Additional info: Fall, pain, AMS TECHNIQUE: Imaging protocol: Computed tomography of the abdomen and pelvis with contrast. Contrast material: OMNIPAQUE 350; Contrast volume: 95 ml; Contrast route: INTRAVENOUS (IV); REPORTING DATA: Count of CT and Cardiac NM exams in prior 12 months: This patient has received 4 known CTs and 0 known cardiac nuclear medicine studies in the 12 months prior to the current study. COMPARISON: CT pelvis wo con [id number] 05/17/2019 5:10 PM RADIATION DOSE METRICS: Total DLP (mGy-cm): 628.13 FINDINGS: Liver: Normal. No mass. Gallbladder and bile ducts: Gallbladder is somewhat prominent, ultrasound could further evaluate this. Pancreas: Normal. No ductal dilation. Spleen: Normal. No splenomegaly. Adrenal glands: Normal. No mass. Kidneys and ureters: Right kidney cyst, negative for follow up. Stomach and bowel: Diverticulosis without diverticulitis. Appendix: No evidence of appendicitis. Intraperitoneal space: Unremarkable. No free air. No significant fluid collection. Vasculature: Unremarkable. No abdominal aortic aneurysm. Lymph nodes: Unremarkable. No enlarged lymph nodes. Urinary bladder: Unremarkable as visualized. Reproductive: Unremarkable as visualized. Bones/joints: Right subcapital impacted displaced hip fracture. Healed old left superior and inferior pubic rami fractures. Soft tissues: Unremarkable. CT/CT chest abdpel w/*[id number] IMPRESSION: 1. Negative for traumatic injury to the chest. 2. Cardiomegaly. 3. Coronary artery atherosclerotic calcifications. 4. Emphysematous changes. 5. Left lower lobe atelectasis versus infiltrate. 6. Scattered prominent subcentimeter short axis nonspecific mediastinal lymph nodes. 7. Left lower lobe suspected calcified granuloma. 8. Large hiatal hernia. IMPRESSION: 1. Right subcapital impacted displaced hip fracture. 2. Healed old left superior and inferior pubic rami fractures. 3. Gallbladder is somewhat prominent, ultrasound could further evaluate this. 4. Diverticulosis without diverticulitis. 5. Right kidney cyst, negative for follow up. COMMENTS: Consistent with the [employer]'s Incidental Findings Committee white paper (J Am Lupe Radiol 2018): Any incidental renal lesion less than 1 cm or classified as too small to characterize, or any incidental cystic renal lesion characterized as simple-appearing, is likely benign. No follow-up imaging is recommended for these lesions per consensus recommendations based on imaging criteria.
--- NOTE | 2022-06-03 14:44 | CTR_ITS ---
PROCEDURE INFORMATION: Exam: CT Cervical Spine Without Contrast Exam date and time: 06/03/2022 3:54 PM Age: 86 years old Clinical indication: Injury or trauma; Fall; Blunt trauma; Patient HX: Found down at home, unknown length of time being down; Additional info: Fall, pain, AMS TECHNIQUE: Imaging protocol: Computed tomography of the cervical spine without contrast. Radiation optimization: All CT scans at this facility use at least one of these dose optimization techniques: automated exposure control; mA and/or kV adjustment per patient size (includes targeted exams where dose is matched to clinical indication); or iterative reconstruction. REPORTING DATA: Count of CT and Cardiac NM exams in prior 12 months: This patient has received 4 known CTs and 0 known cardiac nuclear medicine studies in the 12 months prior to the current study. COMPARISON: CT cervical spin wo con* [id number] 04/14/2022 3:15 PM RADIATION DOSE METRICS: Total DLP (mGy-cm): 138.25 FINDINGS: Bones/joints: Grade 1 anterolisthesis of C3 relative to C4 of 3.3 mm similar to prior exam appears likely chronic and degenerative. C2-C3: No significant disc bulge or herniation. No severe spinal canal stenosis. No significant neural foraminal narrowing. C3-C4: No significant disc bulge or herniation. No severe spinal canal stenosis. No significant neural foraminal narrowing. C4-C5: No significant disc bulge or herniation. No severe spinal canal stenosis. No significant neural foraminal narrowing. C5-C6: No significant disc bulge or herniation. No severe spinal canal stenosis. No significant neural foraminal narrowing. C6-C7: No significant disc bulge or herniation. No severe spinal canal stenosis. No significant neural foraminal narrowing. C7-T1: No significant disc bulge or herniation. No severe spinal canal stenosis. No significant neural foraminal narrowing. Lungs: Biapical pleuroparenchymal fibrosis. Soft tissues: Unremarkable. CT/CT cervical spin wo con* [id number] IMPRESSION: 1. Negative for fracture or dislocation. 2. Grade 1 anterolisthesis of C3 relative to C4 of 3.3 mm similar to prior exam appears likely chronic and degenerative. 3. Biapical pleuroparenchymal fibrosis.
--- NOTE | 2022-06-03 14:44 | CT_ITS ---
WS: [id number] CT HEAD TECHNIQUE: Noncontrast CT of the head obtained from the skullbase to the vertex. CLINICAL INFORMATION: fall, pain, ams COMPARISON: CT April 14, 2022 DLP: 2256.[address] scans at [facility] use at least one of these dose optimization techniques: automated e xposure control; mA and/or kV adjustment per patient size (includes targeted exams where dose is matc hed to clinical indication); or iterative reconstruction. FINDINGS: No evidence of intracranial hemorrhage or mass effect. Ventricular system and basal cisterns are bhatti nt. Moderate small vessel changes with mild parenchymal volume loss. No extra-axial fluid collections . No evidence of mass or mass effect. Vascular calcification. Paranasal sinuses and mastoid air cells are well aerated. .Normal visualized soft tissues. CT/CT head wo con* [id number] IMPRESSION: 1. No evidence of intracranial hemorrhage or mass effect. 2. Moderate small vessel changes. Mild parenchymal volume loss. 3. No acute intracranial findings.
[2022-06-03 15:38] VITALS: RESP 18
[2022-06-03] MEDS: morphine 4 mg/mL SDV 1 mL IVP (15:38)
[2022-06-03 15:43] LABS: Basophils % 0.2 %; Hematocrit 36.9 % (37.0-47.0); Lymphocytes # 0.9 10^3/uL (0.8-4.8); Lymphocytes % 5.2 %; Mean Corpuscular HGB Conc 32.5 g/dL (30.0-36.0); Mean Corpuscular Hemoglobin 29.8 pg (28.0-34.0); Mean Corpuscular Volume 91.6 fl (81-99); Mean Platelet Volume 10.2 fL (7.4-10.4); Monocytes # 1.4 10^3/uL (0.2-0.9); Monocytes % 8.1 %; Neutrophils # 14.34 10^3/uL (1.8-7.7); Neutrophils % 86.1 %; Nucleated Red Blood Cells % 0 %; Platelet Count 216 10^3/cmm (130-400); Red Blood Count 4.03 10^6/uL (4.1-5.3); Red Cell Distribution Width 13.2 % (12.1-15.1); White Blood Count 16.7 10^3/uL (4.0-10.0)
[2022-06-03] MEDS: iohexol 350 mg/mL 500 mL Btl (per mL) IV (15:58)
[2022-06-03 15:59] LABS: Alanine Aminotransferase 15 U/L (0-33); Albumin Level 3.6 g/dL (3.5-5.2); Alkaline Phosphatase 108 U/L (35-105); Anion Gap 15.9 (5-19); Aspartate Amino Transferase 40 U/L (0-32); Blood Urea Nitrogen 17 mg/dL (8-23); Calcium 9.2 mg/dL (8.5-10.5); Carbon Dioxide 21 mmol/L (22-29); Chloride 101 mmol/L (98-107); Globulin 2.4 g/dL (1.3-4.6); Glucose 112 mg/dL (65-115); Osmolality Calculated 280 mOsm/kg (285-295); Potassium 3.9 mmol/L (3.5-5.1); Sodium 134 mmol/L (136-145); Total Bilirubin 0.8 mg/dL (0.15-1.2)
[2022-06-03 16:00] VITALS: BP 134/58
[2022-06-03 16:00] LABS: Creatine Phosphokinase 1435 U/L (26-192)
--- NOTE | 2022-06-03 16:25 | PC.PHAR ---
Addendum entered by Celina Costa 06/03/22 16:37: pts granddaughter states the pt had an inhaler but hasnt used in years Original Note: pts granddaughter [phone] verified pts medications-states the pts losartan 25mg daily was dced-
[2022-06-03] MEDS: sodium chloride 0.9% 1,000 ML 999 ML IV (16:44)
[2022-06-03 17:05] LABS: Add Urine Microscopic? YES; Bilirubin Urine Neg (Negative); Blood Urine 3+ (Negative); Glucose Urine UA 1+ (Normal); Ketones Urine 2+ (Negative); Leukocyte Esterase Urine Negative (Negative); Nitrate Urine Negative (Negative); Protein Urine Neg (Negative); Specific Gravity, Urine 1.015 (1.005-1.030); Urine Appearance Hazy (CLEAR); Urine Color Yellow (Yellow); Urobilinogen Urine Neg (Negative); pH Urine 6.5 (5-7)
[2022-06-03 17:22] LABS: Add Urine Culture? Yes; RBC Urine 40-50 /hpf (0-2); WBC Urine RARE /hpf (0-5)
--- NOTE | 2022-06-03 18:50 | P.HP_ITS ---
Providers/Chief Complaint Admitting Physician: Todd Huynh MD Primary Care Provider: Fitz Fowler MD Chief Complaint: fall/ hip pain History of Present Illness Cristina Whittington is a 86 year old female known, was found on the ground by the family when EMS was called. Family is not sure for how long she stayed on the ground, she has been diagnosed with hip fracture, orthopedic health and safety consultant on board. At the time of my evaluation patient is not able to provide any history however she is wide-awake and alert and very fidgety, tries to get up from her bed She will need one-to-one supervision, family is at the bedside, she is DNR/DNI as per the family, her daughter checks on her on daily basis and cooks for her however she lives alone and manages her daily activities to some extent, she has history of recurrent falls, she uses a cane for ambulation. She does not any history of MO, CHF or coronary artery disease. CPK around 1400, Review of Systems General: Reports: ROS unobtainable due to medical condition Medications/Allergies Home Medications Medication Instructions Recorded Confirmed Last Taken Type celecoxib 200 mg capsule (Celebrex) 200 mg PO DAILY@04/18/19 06/03/22 06/02/22 History dicyclomine 20 mg tablet 20 mg PO DAILY@04/18/19 06/03/22 06/02/22 History fluticasone propionate 50 1 spray intranasal BID PRN Allergy 04/18/19 06/03/22 04/14/22 History mcg/actuation nasal Symptoms spray,suspension (Flonase Allergy Relief) famotidine 20 mg tablet (Pepcid) 20 mg PO DAILY@10/10/19 06/03/22 06/02/22 History calcium carbonate 600 mg calcium 600 mg PO DAILY@12/15/21 06/03/22 06/02/22 History (1,500 mg) tablet (Calcium) glucosamine sulf dipot 1 cap PO BID PRN unknown 12/15/21 06/03/22 04/14/22 History chlr,msm,chond 550 mg-C 30 mg-mariah 1 mg capsule (Glucosamine Chondroitin) metoprolol succinate 50 mg 50 mg PO DAILY@12/15/21 06/03/22 06/02/22 History tablet,extended release 24 hr docusate sodium 100 mg capsule 100 mg PO DAILY PRN Constipation 04/14/22 06/03/22 04/14/22 History ([place]) haloperidol 0.5 mg tablet 0.5 mg PO BID PRN Anxiety 04/14/22 06/03/22 Unknown History acetaminophen 325 mg tablet 650 mg PO Q6H PRN Pain 06/03/22 06/03/22 Unknown History (Tylenol) cetirizine 10 mg tablet (Zyrtec) 10 mg PO DAILY PRN Allergy Symptoms 06/03/22 06/03/22 Unknown History Allergies Allergy/AdvReac Type Severity Reaction Status Date / Time Sulfa (Sulfonamide Allergy Unknown Unknown Verified 04/14/22 15:47 Antibiotics) Tetracyclines Allergy Unknown Unknown Verified 04/14/22 15:47 PFSH Acute PFSH: Medical History Asthma Cystocele, midline DVT (deep venous thrombosis) GERD (gastroesophageal reflux disease) IBS (irritable bowel syndrome) Osteoporosis Rectocele SOB (shortness of breath) Tachycardia Surgical History S/P hernia repair S/P left rotator cuff repair Family History Father CAD (coronary artery disease) Atrial fibrillation Myocardial infarction Mother CAD (coronary artery disease) Diabetes Myocardial infarction Family/Other Cancer Social History Smoking and tobacco status: never smoked Alcohol intake: never Lives independently: Yes Marital status: / service: No Current occupational status: retired Current gender identity: Male and Female E[place]/Confucianist: Moravian Agree to transfusion: Yes Vitals/I&O/Wt Last Vital Signs Pulse 64 06/03/22 14:30 Resp 18 06/03/22 15:38 BP 134/58 06/03/22 16:00 Pulse Ox 95 06/03/22 14:30 O2 Del Method 06/03/22 14:30 Physical Exam Narrative: Frail female Oriented to herself Nonfocal neuro exam Right leg without vascular compromise Limited range of motion Patient very anxious trying to get out of bed Currently on room air Hemodynamically stable Abdomen soft No audible stridor or wheezing Family at the bedside No active bleeding No active skin rash Data 06/03/22 15:28 06/03/22 15:28 A&P Assessment and plan (1) Fall: (2) Closed subcapital fracture of neck of right femur: (3) Rhabdomyolysis: (4) Shortness of Breath: (5) Tachycardia: Plan Hip fracture We will request B12 level N.p.o. after midnight Continue IV fluids Hemodynamically stable Currently on room air Dr. Church consulted Opioids along bowel regimen DVT prophylaxis: SCDs Start anticoagulating agent after surgery History of dementia Patient is very fidgety Try to get out of bed Continue Haldol She might need one-to-one supervision I have informed the nursing station to get one-to-one supervision overnight She will not be able to give consent for the surgery I have asked him number to be around her in the morning around 8:00 She is DNR/DNI, family is okay for intubation for the sake of surgery N.p.o. after midnight Mild muscle injury continue IV fluids Arshad catheter placement Attestations Medical Necessity Statement*: More than 2 midnights anticipated Coding Level of Care Code 99154 Diagnoses Fall W19.XXXA Closed subcapital fracture of neck of right femur S72.011A Rhabdomyolysis M62.82 Shortness of Breath R06.02 Tachycardia R00.0
[2022-06-03 19:15] VITALS: BP 132/71; PULSE 78; TEMP 38.2; O2SAT 95
[2022-06-03] MEDS: acetaminophen 325 mg Tablet 650 MG PO (20:09)
[2022-06-03] MEDS: sodium chloride 0.9% 1,000 ML 75 ML IV (20:10)
[2022-06-03 20:43] LABS: Vitamin B12 150 pg/mL (232-1245)
[2022-06-03] MEDS: LORazepam 2 mg/mL INJ 1 mL 0.5 MG IVP (20:47)
--- NOTE | 2022-06-03 21:49 | XRR_ITS ---
PROCEDURE INFORMATION: Exam: XR Right Knee Exam date and time: 06/03/2022 10:03 PM Age: 86 years old Clinical indication: Pain; Knee; Right; Additional info: Right femur FX TECHNIQUE: Imaging protocol: Radiologic exam of the right knee. Views: 1 or 2 views. COMPARISON: No relevant prior studies available. FINDINGS: Bones/joints: Meniscal chondrocalcinosis. Moderate tricompartmental osteoarthritis of the knee. Soft tissues: Scattered vascular calcifications. XR/XR knee RT 1-2V [id number] IMPRESSION: 1. Meniscal chondrocalcinosis. 2. Moderate tricompartmental osteoarthritis of the knee. 3. Scattered vascular calcifications.
--- NOTE | 2022-06-03 21:49 | XRR_ITS ---
PROCEDURE INFORMATION: Exam: XR Right Femur Exam date and time: 06/03/2022 10:03 PM Age: 86 years old Clinical indication: Pain; Hip; Right; Additional info: Right hip FX TECHNIQUE: Imaging protocol: Radiologic exam of the right femur. Views: 2 views. COMPARISON: CT chest abdpel w/*[id number] 06/03/2022 3:57 PM FINDINGS: Bones/joints: Right subcapital impacted somewhat rotated hip fracture. Soft tissues: Unremarkable. Organs: Arshad catheter in the urinary bladder with contrast without free extravasation seen. XR/XR femur RT min 2V* [id number] IMPRESSION: 1. Right subcapital impacted somewhat rotated hip fracture. 2. Arshad catheter in the urinary bladder with contrast without free extravasation seen.
--- NOTE | 2022-06-03 21:55 | PM.MISC ---
Miscellaneous Note Purpose of Documentation: Orthopedic note update: Full consultation note to follow in the a.m. Orthopedics was consulted for right hip fracture. Internal medicine admitting patient as primary and appreciate medical management and preoperative surgical optimization. Patient is not on any anticoagulants per emergency department and review of medical record. At this point time we will hold off anticoagulants. Patient should be n.p.o. at midnight. Review of imaging confirms a displaced right femoral neck fracture. Surgical recommendation at this point time would be a right hip hemiarthroplasty cemented. Patient's chart reviewed. Patient will be seen and evaluated in the a.m. with plan for right hip hemiarthroplasty tomorrow. Hernan Church, DO Orthopedic surgery
[2022-06-03 22:45] VITALS: BP 97/59; PULSE 61; RESP 14; TEMP 37.4; O2SAT 98
[2022-06-04] VITALS (22 sets, daily range): BP systolic 102–170; BP diastolic 53–147; PULSE 72–109; RESP 8–19; TEMP 36.7–38.5; O2SAT 91–100
[2022-06-04 05:13] LABS: Basophils % 0.2 %; Eosinophils % 0.2 %; Hematocrit 31.1 % (37.0-47.0); Hemoglobin 10.1 g/dL (11.5-15.3); Lymphocytes # 1.1 10^3/uL (0.8-4.8); Lymphocytes % 12.2 %; Mean Corpuscular HGB Conc 32.5 g/dL (30.0-36.0); Mean Corpuscular Volume 92.3 fl (81-99); Mean Platelet Volume 11.6 fL (7.4-10.4); Monocytes # 0.9 10^3/uL (0.2-0.9); Monocytes % 9.8 %; Nucleated Red Blood Cells % 0 %; Platelet Count 141 10^3/cmm (130-400); Red Blood Count 3.37 10^6/uL (4.1-5.3); Red Cell Distribution Width 13.7 % (12.1-15.1); White Blood Count 9.1 10^3/uL (4.0-10.0)
[2022-06-04 05:18] LABS: Blood Urea Nitrogen 16 mg/dL (8-23); C Reactive Protein 44.3 mg/L (0.0-4.9); Calcium 8.2 mg/dL (8.5-10.5); Carbon Dioxide 19 mmol/L (22-29); Chloride 103 mmol/L (98-107); Glucose 92 mg/dL (65-115); Magnesium 1.8 mg/dL (1.7-2.3); Osmolality Calculated 277 mOsm/kg (285-295); Phosphorus 2.5 mg/dL (2.5-4.5); Sodium 133 mmol/L (136-145)
[2022-06-04 05:22] LABS: Anion Gap 14.7 (5-19); Potassium 3.7 mmol/L (3.5-5.1)
[2022-06-04 05:35] LABS: Slide Review Slide Review Perform
[2022-06-04] MEDS: morphine 4 mg/mL SDV 1 mL 1 MG IVP (06:34)
--- NOTE | 2022-06-04 07:02 | PM.PN ---
Subjective Subjective: Low-grade fever noted overnight No leukocytosis No signs of sepsis or active infection UA consistent with dehydration Arshad catheter related traumatic hematuria Patient is n.p.o. Plan for surgery today Son will be here around 8 AM Patient has severe dementia She will be able to give consent She is DNI/DNI Vitals/I&O/Wt Last Vital Signs Temp 98.6 F 06/04/22 04:00 Pulse 78 06/04/22 04:00 Resp 16 06/04/22 06:34 BP 111/61 06/04/22 04:00 Pulse Ox 95 06/04/22 04:00 O2 Del Method 06/03/22 22:45 06/03/22 06/04/22 06/04/22 22:59 06:59 14:59 Intake Total 1120 / 1120 Output Total 250 / 250 Balance 870 / 870 Physical Exam Narrative: Pleasantly confused Oriented to herself Currently on room air Hemodynamically stable Limited range of motion right lower extremity Abdomen soft Able to follow commands Neuro exam limited Arshad catheter in place Data 06/04/22 04:56 06/04/22 04:56 A&P Assessment and plan (1) Fall: (2) Closed subcapital fracture of neck of right femur: (3) Rhabdomyolysis: (4) Shortness of Breath: (5) Tachycardia: Plan Son is planning to be at the bedside by 8:00AM Patient has severe dementia As per the family she lives alone and her daughter checks on her on daily basis and cooks for her Most likely she will need placement after her surgery We will discuss with the family, reevaluate after surgery with physical therapy Continue Arshad catheter Over night low-grade fever noted We will start her on ceftriaxone N.p.o. for now DVT prophylaxis: SCDs She is DNI/DNI, family is okay for intubation for surgery Attestations Medical Necessity Statement*: Surgery today Coding Level of Care Code 19760 Diagnoses Fall W19.XXXA Closed subcapital fracture of neck of right femur S72.011A Rhabdomyolysis M62.82 Shortness of Breath R06.02 Tachycardia R00.0
[2022-06-04 08:01] LABS: Creatine Phosphokinase 1254 U/L (26-192)
--- NOTE | 2022-06-04 08:09 | P.CONIM_ITS ---
Providers/Reason For Consult Consulting Physician/Specialty*: Hernan Church DO/orthopedic surgery Reason for Consult*: Displaced right femoral neck fracture Requesting Physician: Dr. Huynh Attending Physician: Todd Huynh MD Primary Care Provider: Fitz Fowler MD History of Present Illness History of Present Illness Cristina Whittington is a 86 year old female was found on the ground by the family when EMS was called.? Family is not sure for how long she stayed on the ground, she has been diagnosed with hip fracture, orthopedic mental hygiene consultant on board.? Patient able to converse and follow simple commands but a poor historian and at this point time family is however obtained patient's history as well as through review of medical record. family is at the bedside, she is DNR/DNI as per the family, her daughter checks on her on daily basis and cooks for her however she lives alone and manages her daily activities to some extent, she has history of recurrent falls, she uses a cane for ambulation. She does not any history of MA, CHF or coronary artery disease.? CPK around 1400, denies history of diabetes. She she lives at home utilizing a cane but family denies any heart or lung issues. Denies being on any blood thinner. States she has had some frequent falls. Does state of history of Alzheimer's. Family states concern as she has some bruising of her right shoulder and pain of the right ankle. Orthopedics was consulted for recommendations and evaluation for right displaced femoral neck fracture. Review of Systems General: Reports: 10 or more systems reviewed and unremarkable except in HPI and below Medications/Allergies Home Medications Medication Instructions Recorded Confirmed Last Taken Type celecoxib 200 mg capsule (Celebrex) 200 mg PO DAILY@04/18/19 06/03/22 06/02/22 History dicyclomine 20 mg tablet 20 mg PO DAILY@04/18/19 06/03/22 06/02/22 History fluticasone propionate 50 1 spray intranasal BID PRN Allergy 04/18/19 06/03/22 04/14/22 History mcg/actuation nasal Symptoms spray,suspension (Flonase Allergy Relief) famotidine 20 mg tablet (Pepcid) 20 mg PO DAILY@10/10/19 06/03/22 06/02/22 History calcium carbonate 600 mg calcium 600 mg PO DAILY@12 12/15/21 06/03/22 06/02/22 History (1,500 mg) tablet (Calcium) glucosamine sulf dipot 1 cap PO BID PRN unknown 12/15/21 06/03/22 04/14/22 History chlr,msm,chond 550 mg-C 30 mg-mariah 1 mg capsule (Glucosamine Chondroitin) metoprolol succinate 50 mg 50 mg PO DAILY@12 12/15/21 06/03/22 06/02/22 History tablet,extended release 24 hr docusate sodium 100 mg capsule 100 mg PO DAILY PRN Constipation 04/14/22 06/03/22 04/14/22 History ([employer]i-Gels) haloperidol 0.5 mg tablet 0.5 mg PO BID PRN Anxiety 04/14/22 06/03/22 Unknown History acetaminophen 325 mg tablet 650 mg PO Q6H PRN Pain 06/03/22 06/03/22 Unknown H istory (Tylenol) cetirizine 10 mg tablet (Zyrtec) 10 mg PO DAILY PRN Allergy Symptoms 06/03/22 06/03/22 Unknown History Allergies Allergy/AdvReac Type Severity Reaction Status Date / Time Sulfa (Sulfonamide Allergy Unknown Unknown Verified 04/14/22 15:47 Antibiotics) Tetracyclines Allergy Unknown Unknown Verified 04/14/22 15:47 Current Medications Generic Name Dose Route Start Last Admin Trade Name Freq PRN Reason Stop Dose Admin Acetaminophen 650 mg 06/03/22 19:45 06/03/22 20:09 Acetaminophen 325 Mg Tablet PO 650 mg Q6H PRN Administration Pain Sodium Chloride 1,000 mls @ 75 mls/hr 06/03/22 19:45 06/03/22 20:10 Sodium Chloride 0.9% IV 75 mls/hr .[id number] ANTWAN Administration Morphine Sulfate 1 mg 06/04/22 06:20 06/04/22 06:34 Morphine 4 Mg/Ml Sdv 1 Ml IVP 1 mg Q4H PRN Administration SEVERE PAIN PFSH Acute PFSH: Medical History (Updated 06/06/22 @ 12:46 by Todd Huynh MD) Asthma Cystocele, midline DVT (deep venous thrombosis) GERD (gastroesophageal reflux disease) IBS (irritable bowel syndrome) Osteoporosis Rectocele SOB (shortness of breath) Tachycardia Surgical History S/P hernia repair S/P left rotator cuff repair Family History Father CAD (coronary artery disease) Atrial fibrillation Myocardial infarction Mother CAD (coronary artery disease) Diabetes Myocardial infarction Family/Other Cancer Social History Smoking and tobacco status: never smoked Alcohol intake: never Lives independently: Yes Marital status: / service: No Current occupational status: retired Current gender identity: Male and Female [place]/Denominational: Rastafari Agree to transfusion: Yes Vitals/I&O/Wt Last Vital Signs Temp 98.6 F 06/04/22 04:00 Pulse 78 06/04/22 04:00 Resp 16 06/04/22 06:34 BP 111/61 06/04/22 04:00 Pulse Ox 95 06/04/22 04:00 O2 Del Method 06/03/22 22:45 06/03/22 06/04/22 06/04/22 22:59 06:59 14:59 Intake Total 1120 / 1120 Output Total 250 / 250 Balance 870 / 870 Physical Exam Narrative: Patient demented and a poor historian however she is able to follow commands for an examination. Examination of the right lower extremity demonstrates that shortened and externally rotated she has severe right hip pain with a positive logroll unable to perform perform [place] secondary to pain and discomfort. She has no tenderness to palpation of the right knee. Mild discomfort to palpation of the right ankle. No significant swelling deformity or ecchymosis noted about the right ankle. Her distal pulses are palpable. She endorses sensation intact to light touch distally to the right lower extremity. Toes are warm well perfused. She is able to wiggle her toes as well as plantar flex and dorsiflex ankle. Secondary survey examination of the bilateral upper extremities demonstrates mild ecchymosis of the right shoulder with no significant deformity and minimal tenderness to palpation. Normal range of motion of the bilateral upper extremity joints with no deformity, and sensation and gross motor intact in the bilateral upper extremities. Data 06/04/22 04:56 06/04/22 04:56 Xray Ortho: My impression: X-rays multiple views of the right hip including femur pelvis and knee demonstrate a displaced right femoral neck fracture. No pelvic fracture appreciated. Review of patient's x-rays of the right shoulder demonstrates no acute fracture dislocation X-rays of the right shoulder demonstrate no acute fracture or dislocation. Negrito phillips has previous rotator cuff metal anchor noted and a superior migration of the humeral head consistent with rotator cuff arthropathy. X-rays of the right ankle reviewed and personally interpreted by myself demonstrating no acute fracture or dislocation. A&P Assessment and plan (1) Closed subcapital fracture of neck of right femur: Plan N.p.o. since midnight Hold a.m. anticoagulation Nonweightbearing right lower extremity Obtain x-rays right shoulder and right ankle Reviewed at pelvis hip knee and femur films-displaced right femoral neck fracture Pain control Internal medicine on board as primary and appreciate their medical optimization preoperatively Plan for or today for right hip hemiarthroplasty A detailed discussion with patient's family at bedside today as patient is Alzheimer's and dementia and a poor historian. We reviewed her imaging and she is found to have a displaced right femoral neck fracture I talked about her treatment options. She sounds as though she lives at home by herself and utilizes a cane when she is without much in the way of the community ambulator but she does get out sometimes particularly for transfers once a week. She is visited by family often. We talked about nonoperative and operative intervention. In order for pain control as well as early mobilization would recommend surgical intervention of the right hip hemiarthroplasty. We talked about the risk benefits complications alternatives to surgical nonsurgical treatment options. Risk of surgery include but not limited to make a better make it worse, blood clot, heart attack, stroke, on the table, infection, hip instability/dislocation, leg length inequality injury to nerves or vessels. Understanding the risks with surgery patient's family elects to proceed with surgical intervention. All questions been answered at this time. We will proceed with a right hip hemiarthroplasty plan will be with cement through posterior approach. All questions answered at this time. Plan will be for her to be weightbearing as tolerated postoperatively with posterior hip precautions. Coding Level of Care Code Acute Code for g Fwd Diagnoses Closed subcapital fracture of neck of right femur S72.011A Time Spent (min) 45
--- NOTE | 2022-06-04 09:09 | XR_ITS ---
WS: [id number] Exam: XR ankle RT min 3V* [id number] Date/Time of Exam: 06/04/2022 9:27 AM Reason For Exam: r ankle pain No fracture or dislocation. The ankle mortise is preserved. Vascular calcifications about the ankle. XR/XR ankle RT min 3V* [id number] IMPRESSION: 1. No fracture or other significant finding.
--- NOTE | 2022-06-04 09:09 | XR_ITS ---
WS: [id number] Exam: XR shoulder RT min 2V* [id number] Date/Time of Exam: 06/04/2022 9:27 AM Reason For Exam: right shoulder pain No fracture or dislocation noted. Soft tissue calcification along the humeral head suggesting the jordyn cific bursitis and/or tendinitis. Rotator cuff anchor in the humeral head. High riding humeral head s uggest degeneration of the rotator cuff. Arthrosis at the AC joint. Moderate DJD at the glenohumeral joint. XR/XR shoulder RT min 2V* [id number] IMPRESSION: 1. High riding humeral head suggesting rotator cuff degeneration. Anchoring scr ew in the humeral head. 2. Soft tissue calcification along the humeral head suggesting calcific bursiti s and/or tendinitis. 3. Degenerative changes.
--- NOTE | 2022-06-04 10:51 | P.ANESASSM_ITS ---
Pre-Anesthetic Assessment Height/Weight: Height 1.45 m Temp Pulse Resp BP Pulse Ox O2 Del Method 99.3 F 74 12 119/53 94 06/04/22 10:46 06/04/22 10:46 06/04/22 10:46 06/04/22 10:46 06/04/22 10:46 06/04/22 10:46 Preop Diagnosis: Right displaced femoral neck fracture Operation Date: 06/04/22 12:40 Proposed Procedures p Right Hemiarthroplasty Hip cemented(Right) - Hernan Church DO Familial anesthetic complications: none Was Beta Heather taken within 24 hours: Yes (will administor vital signs permitting.) Last intake: patient found down 06/03/22 1100 roughly son states he suspects she was down a few hours. NPO>8 hours. 06/02/22 1630 last seen normal. Social No alcohol and No tobacco Exam clear to auscultation bilaterally and regular rate & rhythm Patient confused. baseline dementia and alzheimers. Airway Submandibular: within normal limits Cervical ROM: within normal limits Mallampati: Class II Dentition: false (upper plate) Pulmonary None reported CV/HEM Arrythmia (Tachycardia on metoprolol.) No other history noted by son of any cardiac issues. Acute renal issues patient found down - down several hours.Rhabdomyolysis. Hepatic None reported GI Gastroesophageal Reflux Disease Musc/skel Weakness (cane use.) Neuropsych Dementia Alzheimers Anesthetic Plan ASA status: 3 Anesthesia: MAC and Regional (specify below) (SAB) Other: Discussed GA as back up in the event a SAB isnt possible. Medications/Allergies Home Medications Medication Instructions Recorded Confirmed Last Taken Type celecoxib 200 mg capsule (Celebrex) 200 mg PO DAILY@04/18/19 06/03/22 06/02/22 History dicyclomine 20 mg tablet 20 mg PO DAILY@04/18/19 06/03/22 06/02/22 History fluticasone propionate 50 1 spray intranasal BID PRN Allergy 04/18/19 06/03/22 04/14/22 History mcg/actuation nasal Symptoms spray,suspension (Flonase Allergy Relief) famotidine 20 mg tablet (Pepcid) 20 mg PO DAILY@10/10/19 06/03/22 06/02/22 History calcium carbonate 600 mg calcium 600 mg PO DAILY@12 12/15/21 06/03/22 06/02/22 History (1,500 mg) tablet (Calcium) glucosamine sulf dipot 1 cap PO BID PRN unknown 12/15/21 06/03/22 04/14/22 History chlr,msm,chond 550 mg-C 30 mg-mariah 1 mg capsule (Glucosamine Chondroitin) metoprolol succinate 50 mg 50 mg PO DAILY@12 12/15/21 06/03/22 06/02/22 History tablet,extended release 24 hr docusate sodium 100 mg capsule 100 mg PO DAILY PRN Constipation 04/14/22 06/03/22 04/14/22 History ([employer]i-Gels) haloperidol 0.5 mg tablet 0.5 mg PO BID PRN Anxiety 04/14/22 06/03/22 Unknown History acetaminophen 325 mg tablet 650 mg PO Q6H PRN Pain 06/03/22 06/03/22 Unknown History (Tylenol) cetirizine 10 mg tablet (Zyrtec) 10 mg PO DAILY PRN Allergy Symptoms 06/03/22 06/03/22 Unknown History Allergies Allergy/AdvReac Type Severity Reaction Status Date / Time Sulfa (Sulfonamide Allergy Unknown Unknown Verified 04/14/22 15:47 Antibiotics) Tetracyclines Allergy Unknown Unknown Verified 04/14/22 15:47 Current Medications Generic Name Dose Route Start Last Admin Trade Name Freq PRN Reason Stop Dose Admin Acetaminophen 650 mg 06/03/22 19:45 06/03/22 20:09 Acetaminophen 325 Mg Tablet PO 650 mg Q6H PRN Administration Pain Sodium Chloride 1,000 mls @ 75 mls/hr 06/03/22 19:45 06/04/22 09:56 Sodium Chloride 0.9% IV Infused .[id number] ANTWAN Infusion Morphine Sulfate 1 mg 06/04/22 06:20 06/04/22 06:34 Morphine 4 Mg/Ml Sdv 1 Ml IVP 1 mg Q4H PRN Administration SEVERE PAIN PFSH Anesthesia Medical History Asthma Cystocele, midline DVT (deep venous thrombosis) GERD (gastroesophageal reflux disease) IBS (irritable bowel syndrome) Osteoporosis Rectocele SOB (shortness of breath) Tachycardia Surgical History S/P hernia repair S/P left rotator cuff repair Family History Father CAD (coronary artery disease) Atrial fibrillation Myocardial infarction Mother CAD (coronary artery disease) Diabetes Myocardial infarction Family/Other Cancer Social History Smoking and tobacco status: never smoked Alcohol intake: never Lives independently: Yes Marital status: / service: No Current occupational status: retired Current gender identity: Male and Female [place]/Catholic: Baptism Agree to transfusion: Yes Data Anesthesia 06/04/22 04:56 06/04/22 04:56 Short CBC 06/03/22 06/04/22 Range/Units 15:28 04:56 WBC 16.7 H 9.1 (4.0-10.0) 10^3/uL Hgb 12.0 10.1 L (11.5-15.3) g/dL Hct 36.9 L 31.1 L (37.0-47.0) % MCV 91.6 92.3 (81-99) fl Plt Count 216 141 D (130-400) 10^3/cmm Neut % (Auto) 86.1 77.0 % Neut # (Auto) 14.34 H 7.00 (1.8-7.7) 10^3/uL BMP 06/03/22 06/04/22 15:28 04:56 Sodium 134 L 133 L Potassium 3.9 3.7 Chloride 101 103 Carbon Dioxide 21 L 19 L BUN 17 16 Creatinine 0.4 L 0.5 Glucose 112 92 Calcium 9.2 8.2 L Cardiac Enzymes 06/03/22 06/04/22 Range/Units 15:28 04:56 Creatine Kinase 1435 H* 1254 H* (26-192) U/L Liver Function 06/03/22 Range/Units 15:28 Total Bilirubin 0.8 (0.15-1.2) mg/dL AST 40 H (0-32) U/L ALT 15 (0-33) U/L Alkaline Phosphatase 108 H (35-105) U/L Albumin 3.6 (3.5-5.2) g/dL Urine 06/03/22 Range/Units 16:45 Urine Color Yellow (Yellow) Urine Appearance Hazy A (CLEAR) Urine pH 6.5 (5-7) Ur Specific [place] 1.015 (1.005-1.030) Urine Protein Neg (Negative) Urine Glucose (UA) 1+ H (Normal) Urine Ketones 2+ H (Negative) Urine Nitrate Negative (Negative) Urine Bilirubin Neg (Negative) Ur Leukocyte Esterase Negative (Negative) Urine RBC 40-50 H (0-2) /hpf Urine WBC Rare (0-5) /hpf Coa 06/04/22 04:56 C-Reactive Protein 44.3 H Cardiac Studies: No Data to Display
[2022-06-04] MEDS: sodium chloride 0.9% 1,000 ML 30 ML IV (11:10)
--- NOTE | 2022-06-04 11:24 | W.PM.OPSUD ---
Surgery/Procedure H&P Update DATE OF PROCEDURE: June 04, 2022 DATE H&P PERFORMED: 06/04/22 CHANGES TO PREVIOUS DOCUMENTATION: None. Had a detailed discussion with the patient as well as her family about treatment options. Patient is HPI is somewhat limited given to she lives by herself and she does have Alzheimer's at baseline. We talked about her injury and she does have a displaced right femoral neck fracture. At baseline she does ambulate with a cane at home. She does not go out in the community too often. Overall she is reasonably healthy and is not on any blood thinners. We talked about her treatment options as far as nonoperative and operative intervention. We talked about the risk benefits complication alternatives to surgical and nonsurgical treatment options. Risk was her surgery include but are not limited to make it better or make it worse, blood clot, heart attack, stroke, on the table, injury to nerves or vessels, infection, dislocation, periprosthetic fracture. Understanding these risks with surgery patient and family elect to proceed with surgical intervention of right hip hemiarthroplasty. We will perform this through a posterior approach utilizing cement technique. Once again they understand the risks and elect to proceed with surgical intervention to help with early mobilization as well as pain control. She will return to floor postoperatively. Patient medically optimized per primary team. All questions answered at this time. PREOP DIAGNOSIS: Right displaced femoral neck fracture PRIMARY INDICATION FOR PROCEDURE: Displaced right femoral neck fracture PLANNED PROCEDURE: Operation Date: 06/04/22 12:40 Proposed Procedures p Right Hemiarthroplasty Hip cemented(Right) - Hernan Church DO
[2022-06-04] MEDS: ceFAZolin 1,000 MG in sodium chloride 0.9% (plus) 50 ML 100 MG IV (12:15)
[2022-06-04] MEDS: ceFAZolin 1,000 mg SDV 1000 MG IVP (12:16)
[2022-06-04] MEDS: tranexamic acid 1,000 mg/10mL SDV 1000 MG IV (12:30)
[2022-06-04] MEDS: vancomycin 1,000 MG SDV 1000 MG INTRA-ARTI (13:35)
--- NOTE | 2022-06-04 14:05 | P.PCN_ITS ---
PACU note Narrative: Patient taken to PACU in stable condition recovering well she is extubated and breathing on her own. She is slightly somnolent but is arousable and will follow commands. She nods to sensation intact light touch distally. She is able to wiggle her toes. As well as EHL is intact with plantarflexion dorsiflexion of the right foot. Distal pulses are palpable toes warm well- perfused brisk capillary refill less than 2 seconds. Dressing on in place clean dry and intact. Abduction pillow on in place. Exam: somnolent, arousable Disposition: back to floor
--- NOTE | 2022-06-04 14:05 | PM.OP2 ---
Brief Operative Note Date of procedure: 06/08/22 Pre-op diagnosis: Right displaced femoral neck fracture Post-op diagnosis: same Procedure Done: Right hip hemiarthroplasty Surgeon: Hernan Church Estimated blood loss (mL): 75 Complications: None Post-op Plan: Patient taken to PACU in stable condition. Patient will return to the floor. Will receive appropriate discharge instruction as well as pain medication postoperatively. She will receive appropriate pain control DVT prophylaxis posterior hip precautions weightbearing as tolerated to the right lower extremity PT/OT as well as perioperative antibiotics. We will have patient work with therapy and evaluate with discharge planning for discharge postoperatively. Family updated. Orthopedics will continue to monitor. Appreciate internal medicine for medical management. Condition: stable Disposition: floor Coding Level of Care Code Acute Code for Darius Fwlissa
--- NOTE | 2022-06-04 14:05 | PM.OP ---
Operative Report Date of procedure: June 04, 2022 Pre-op diagnosis: Preop Diagnosis Right displaced femoral neck fracture Post-op diagnosis: Same Procedure done: Right hip hemiarthroplasty Implants: [place] Accolade C 132 degree cemented hip stem size 4 [place] distal cement spacer 11 mm [place] head bipolar component 42 mm outer diameter 26 mm inner diameter with a +4 mm offset Surgeon: Hernan Church DO Estimated blood loss: 75 IV fluids: See anesthesia record Urine output: See anesthesia record Complications: None Findings: See operative report narrative Condition: stable Disposition: floor Brief History: Patient was brought to the emergency department after being found down by family was found to have a displaced right femoral neck fracture. She has been medically optimized per the internal medicine team who admit the patient as primary and orthopedics was consulted for recommendations. We had a following thoughtful discussion about her treatment options far as nonoperative and operative intervention. Detailed out the risk benefits complication alternatives with surgical treatment option. Understanding risk for surgery family along with patient elected proceed with surgical intervention of her right hip hemiarthroplasty. Plan will be for this to help early mobilization as wellas pain control. Patient's family elects to proceed with surgical intervention. All questions been answered. Procedure: Patient was seen evaluate in the preoperative holding area.? Consent was reviewed with patient the correct extremity was marked.? Seen evaluated by anesthesia plan for spinal anesthesia.? Taken back to the operative suite when cleared by anesthesia to proceed with surgery.? Underwent anesthesia per the anesthesia department. Patient was then placed in a lateral decubitus position with the right hip up.? Patient was appropriately secured to the pegboard table with all bony prominences well-padded axillary roll placed.? Patient was appropriately secured to the bed.? At this point the right lower extremity was then prepped and draped in standard orthopedic fashion.? Patient received appropriate preoperative antibiotics.? Final timeout performed.? Patient received preoperative TXA. A standard mini posterior incision was utilized.? Sharp scalpel excision through skin and subcutaneous tissue.? Dissection directly down over the fascia of the gluteus extending into the IT band.? This was split longitudinally with electrocautery.? This was hip was then placed in internal rotation the bursa was excised and a Hohmann was placed underneath the abductors.? Direct visualization of the short external rotators and sweeping and protecting the sciatic nerve posteriorly with a lap sponge.? Next I utilized electrocautery to perform by release of the short external rotators and capsulotomy in 1 full thick sleeve for later repair.? Arthrotomy performed.? Hip was identified and having a displaced femoral neck fracture.? Hip was then dislocated Hohmann's were placed above and below the the femoral neck.? At this point I placed my finger 1 fingerbreadth roughly 15 mm above the lesser trochanter.? I bovied this and extended this into the shoulder of the femoral neck.? I then freshened my femoral neck cut.? This was removed and all bony debris was removed.? Next I utilized a corkscrew to move the femoral head which was measured to be a size 42 mm.? I then placed a Hohmann at the anterior aspect of the acetabulum for direct visualization of acetabulum there was no significant arthritic changes noted.? I then utilize electrocautery to remove the pulvinar left the labrum intact.? Next I trialed my 42 trial head which was appropriately sized and had excellent suction fit.? Next I proceeded with the preparation of the femoral canal.? I utilized a electrocautery and Bovie to remove the soft tissue along the shoulder of the femoral neck.? I then used a box osteotome to obtain bilateral starting point.? Then I used the canal finder and a lateralizing rasp to appropriately lateralized.? Next I then introduced my size 4 [place] Accolade C stem.? This was broached with appropriate version fabio roughly 10 to 15 degrees of anteversion matching the patient's anatomy.? I did temporarily trial this with a standard offset this was slightly short however this was the appropriate size stem as a result that stem was removed the canal was then prepped in standard cementation fashion.? I then placed my cement restrictor at appropriate depth to allow for appropriate cement mantle.? Canal was brushed as well as thoroughly irrigated and dried.? The cement was then mixed on the back table and once appropriate and ready for cementation a cement gun was then injected using standard third-generation cement technique.? This was then subsequently pressurized and patient was optimized from oxygenation standpoint with anesthesia.? I then pressurized and then placed my size to final femoral stem size 4 to appropriate depth resting right along the calcar.? Appropriate version was held and all excess cement was removed and was allowed to cure.? Once this was allowed to cure I then thoroughly irrigated and reinspected the acetabular make sure there is no cement or loose bodies.? At this point time selected a +4 which was trialed and I felt this had appropriate tension on the abductors as well as excellent stability and appropriate leg lengths. I then called for the final implant. The trial head was subsequently dislocated removed the trunnion was cleaned and made dry the final +4 mm offset with a 42 mm bipolar head was then subsequently opened and then impacted to the femoral stem was had excellent fixation. Hip was taken through range of motion had excellent stability as well as appropriate leg lengths.? Thoroughly irrigated with pulse lavage the wound bed.? I then performed a standard capsular as well as short external rotator repair utilizing bone tunnels and #5 Ethibond suture.? Vancomycin powder was placed within the wound.? I then reapproximated the fascia with running #1 strata fix suture.? I then closed in standard layered fashion with 2 oh strata fix l and kaden and Silverlon dressing.? Patient was then awakened from anesthesia and taken to PACU in stable condition. Disposition: Patient taken to PACU in stable condition.? Patient will be weight-bear as tolerated to the right lower extremity.? We will begin to posterior hip precautions.? Pain control, DVT prophylaxis and postoperative antibiotics.? As well as postoperative TXA.? Patient will follow-up with me in the office in 2 weeks.? Dressing should remain on in place unless becomes saturated.? Will receive appropriate discharge instructions as well as pain medication DVT prophylaxis postoperatively. Orthopedics will continue to monitor postoperatively.
--- NOTE | 2022-06-04 14:06 | XR_ITS ---
WS: [id number] PELVIS AND RIGHT HIP HISTORY: postop hip payal COMPARISON: 06/03/2022 Right hip: Since the prior radiograph patient's undergone a RIGHT hemiarthroplasty. Arthroplasty comp onents are in good position and alignment. Postoperative changes surrounding the RIGHT hip arthroplasty. Staple line lateral to the RIGHT hip. O steopenia. XR/XR hip RT 2-3V wo/w pel* [id number] IMPRESSION: 1. Satisfactory RIGHT hip arthroplasty. 2. Postoperative soft tissue changes around the RIGHT hip.
--- NOTE | 2022-06-04 14:50 | SUR.PHASEI ---
[facility] updated, that pt is currently in PACU waiting for post op xray then nurse will transport pt to Med Surg.
[2022-06-04] MEDS: sodium chloride 0.9% 1,000 ML 75 ML IV (16:33)
--- NOTE | 2022-06-04 17:37 | PC.NURSE ---
Post Anaesthesia At this time pt is still too drowsy from anaesthesia to preform test
--- NOTE | 2022-06-04 18:05 | ANE.PACU2 ---
Inpatient post-anesthesia follow up: Airway intact: Yes Vital signs: Temperature 99.5 F Pulse Rate 89 Respiratory Rate 16 Blood Pressure 131/82 Pulse Oximetry 96 Oxygen Delivery Me thod Nasal Cannula Oxygen Flow Rate 3 Fraction of Inspir ed Oxygen Hydration adequate: Yes Nausea and vomiting: No Pain level: 1 Mental status: Baseline
[2022-06-04] MEDS: ceFAZolin 2,000 MG in sodium chloride 0.9% (plus) 50 ML 100 MG IV (19:46)
--- NOTE | 2022-06-04 20:03 | XRR_ITS ---
PROCEDURE INFORMATION: Exam: XR Chest Exam date and time: 06/04/2022 9:54 PM Age: 86 years old Clinical indication: Shortness of breath; Additional info: SOB, post hip surg. TECHNIQUE: Imaging protocol: Radiologic exam of the chest. Views: 1 view. COMPARISON: CT chest abdpel w/*[id number] 06/03/2022 3:57 PM FINDINGS: Lungs: Coarse reticular interstitial lung changes bilaterally. Increased streaky infrahilar bronchovascular lung markings. Low lung volumes. Pleural spaces: Unremarkable. No pleural effusion. No pneumothorax. Heart/Mediastinum: Hiatal hernia. Mildly enlarged cardiac silhouette. Bones/joints: Unremarkable. XR/XR chest 1V portable [id number] IMPRESSION: Diffuse interstitial prominence; consider interstitial edema.
[2022-06-04] MEDS: acetaminophen 325 mg Tablet 650 MG PO (20:46)
[2022-06-04 21:32] LABS: Lactic Sepsis W/Reflex 1.7 mmol/L (0.5-2.2)
[2022-06-04 21:39] LABS: Procalcitonin 0.11 ng/mL (0-0.5)
--- NOTE | 2022-06-04 22:38 | PM.MISC ---
Miscellaneous Note Note: Patient had noted TMax of : 101.3 overnight,Blood.C drawan, Lactic acid: 1.7 , xray chest : Suggestive of possible interstitial edema. She has been empirically started on ceftriaxone.
[2022-06-05] VITALS (7 sets, daily range): BP systolic 106–134; BP diastolic 55–73; PULSE 86–117; RESP 16–20; TEMP 36.8–38.5; O2SAT 94–97
[2022-06-05] MEDS: acetaminophen 325 mg Tablet 650 MG PO ×2 (01:34→21:29)
[2022-06-05] MEDS: TRAMadol 50 mg Tablet PO (01:35)
[2022-06-05] MEDS: enoxaparin 30 mg/0.3 mL Syringe SUBCUT (01:36)
[2022-06-05] MEDS: cefTRIAXone 1,000 MG in sodium chloride 0.9% (plus) 50 ML 100 MG IV (02:55)
[2022-06-05] MEDS: ceFAZolin 2,000 MG in sodium chloride 0.9% (plus) 50 ML 100 MG IV ×2 (04:34→11:35)
[2022-06-05 05:52] LABS: Basophils % 0.2 %; Hematocrit 30.5 % (37.0-47.0); Hemoglobin 9.8 g/dL (11.5-15.3); Lymphocytes # 1.1 10^3/uL (0.8-4.8); Lymphocytes % 6.4 %; Mean Corpuscular HGB Conc 32.1 g/dL (30.0-36.0); Mean Corpuscular Hemoglobin 29.9 pg (28.0-34.0); Mean Platelet Volume 10.8 fL (7.4-10.4); Monocytes # 1.2 10^3/uL (0.2-0.9); Monocytes % 6.6 %; Neutrophils # 15.03 10^3/uL (1.8-7.7); Neutrophils % 86.2 %; Nucleated Red Blood Cells % 0 %; Platelet Count 183 10^3/cmm (130-400); Red Blood Count 3.28 10^6/uL (4.1-5.3); Red Cell Distribution Width 13.7 % (12.1-15.1); White Blood Count 17.4 10^3/uL (4.0-10.0)
[2022-06-05 06:07] LABS: Anion Gap 15.5 (5-19); Blood Urea Nitrogen 18 mg/dL (8-23); Carbon Dioxide 19 mmol/L (22-29); Chloride 104 mmol/L (98-107); Glucose 117 mg/dL (65-115); Osmolality Calculated 283 mOsm/kg (285-295); Potassium 3.5 mmol/L (3.5-5.1); Sodium 135 mmol/L (136-145)
[2022-06-05] MEDS: oxyCODONE 5 mg IR Tab/Cap PO ×2 (06:12→18:25)
[2022-06-05] MEDS: calcium carb-vit d 600mg/400unit 1 Tablet 1 EACH PO ×2 (10:10→18:25)
[2022-06-05] MEDS: sennosides-docusate Tablet 2 TAB PO ×2 (10:10→18:26)
[2022-06-05] MEDS: cholecalciferol (vitamin D3) 1,000 unit Tablet 1000 UNIT PO (10:10)
[2022-06-05] MEDS: iron polysaccharide complex 150 mg Capsule PO ×2 (10:10→18:25)
[2022-06-05] MEDS: multivitamin therapeutic Tablet 1 TAB PO (10:11)
[2022-06-05] MEDS: mupirocin oint 22 gm 1 APPLIC NASAL ×2 (10:12→18:25)
--- NOTE | 2022-06-05 11:29 | PM.PN ---
Subjective Subjective: Patient seen evaluated postop day 1. She is resting comfortably at bedside with family present. Questions about patient's postoperative course by family was answered to their satisfaction. Patient's been somnolent since surgery and has had some agitation however he is able to follow commands dressings clean dry and intact she is able to wiggle toes. States she has sat up to a chair. Goal is to work with therapy today. Febrile event overnight patient being treated for interstitial edema and started on empiric antibiotics treating possible pneumonia per primary and being managed by primary team. Vitals/I&O/Wt Last Vital Signs Temp 99.2 F 06/05/22 08:00 Pulse 98 06/05/22 08:00 Resp 20 H 06/05/22 08:00 BP 117/70 06/05/22 08:00 Pulse Ox 97 06/05/22 08:00 O2 Del Method 06/05/22 08:00 O2 Flow Rate 2.5 06/05/22 08:00 FiO2 2 06/05/22 08:00 06/04/22 06/05/22 06/05/22 22:59 06:59 14:59 Intake Total 210 / 2260 1100 / 3360 Output Total 650 / 725 250 / 975 Balance -440 / 1535 850 / 2385 Physical Exam Narrative: Silverlon dressing clean dry intact of the right hip. Appropriate leg lengths noted abduction pillow in place. Patient not sensation tact light touch and she is able to wiggle toes as well as plantarflex and dorsiflex the ankle noted. Her examination is slightly limited given her somnolence but she is arousable and will follow some commands. No discomfort noted with logroll. Distal pulses palpable. Urinary Catheter Management: Arshad: Cath Placed During This Visit: no Data 06/05/22 05:28 06/05/22 05:28 Micro: Microbiology 06/04/22 20:40 Blood Culture - Preliminary Blood SPECIMEN COLLECTED 06/04/22 20:35 Blood Culture - Preliminary Blood SPECIMEN COLLECTED Xray Ortho: My impression: Postoperative x-rays demonstrate stable right hip hemiarthroplasty with appropriate cement mantle appropriate leg lengths and fixation no acute fracture dislocation noted. A&P Assessment and plan (1) Closed subcapital fracture of neck of right femur: Plan Weightbearing as tolerated right lower extremity Posterior hip precautions PT/OT Pain control Ice as needed Resume diet per primary Internal medicine is primary and appreciate their management Abduction pillow in place Silverlon dressing on in place can be changed as needed if saturated DVT prophylaxis Postoperative antibiotics Attestations Medical Necessity Statement*: Ongoing care right femoral neck fracture Coding Level of Care Code Acute Code for Chg Fwd Diagnoses Closed subcapital fracture of neck of right femur S72.011A Time Spent (min) 25
--- NOTE | 2022-06-05 11:35 | P.PN_ITS ---
Subjective Subjective: Patient worked with PT today Much more awake and alert She was agitated last night was tried to pull her IVs Discontinue fluids Remove Arshad catheter Spoke with her son They were hoping to take her to [place], briefcase sewer updated Vitals/I&O/Wt Last Vital Signs Temp 99.2 F 06/05/22 08:00 Pulse 98 06/05/22 08:00 Resp 20 H 06/05/22 08:00 BP 117/70 06/05/22 08:00 Pulse Ox 97 06/05/22 08:00 O2 Del Method 06/05/22 08:00 O2 Flow Rate 2.5 06/05/22 08:00 FiO2 2 06/05/22 08:00 06/04/22 06/05/22 06/05/22 22:59 06:59 14:59 Intake Total 210 / 2260 1100 / 3360 Output Total 650 / 725 250 / 975 Balance -440 / 1535 850 / 2385 Physical Exam Narrative: Awake and alert Pleasant cooperative Work with PT Arshad catheter in place Currently on room air S1, S2 Nonfocal neuro exam Not agitated Dehydrated Renal lethargic Urinary Catheter Management: Arshad: Cath Placed During This Visit: no Data 06/05/22 05:28 06/05/22 05:28 Micro: Microbiology 06/03/22 16:45 Urine Culture - Preliminary Urine,Clean Catch 06/04/22 20:40 Blood Culture - Preliminary Blood SPECIMEN COLLECTED 06/04/22 20:35 Blood Culture - Preliminary Blood SPECIMEN COLLECTED A&P Assessment and plan (1) Fall: (2) Closed subcapital fracture of neck of right femur: (3) Rhabdomyolysis: (4) Shortness of Breath: (5) Tachycardia: Plan Hip fracture status post intervention Postop day 1 No postop complications Working with PT Hoping to get her placed to a group home for short-term rehab Dementia with sundowning/delirium Discontinue IV fluids Discontinue Arshad catheter Would use Ativan for as needed use along Haldol Advance diet to GI soft, she would like gluten-free, no dairy products Son updated Left a message for the nurse to discontinue one-to-one supervision on Tuesday Febrile event noted overnight, she is on ceftriaxone for possible UTI, changed to Levaquin DNR/DNI dvt prophylaxis on board Attestations Medical Necessity Statement*: Discharge to group home on Tuesday Diagnoses Fall W19.XXXA Closed subcapital fracture of neck of right femur S72.011A Rhabdomyolysis M62.82 Shortness of Breath R06.02 Tachycardia R00.0
[2022-06-05] MEDS: metoprolol succinate ER (24 HR) 50 mg Tablet 25 MG PO (11:36)
[2022-06-05] MEDS: sennosides-docusate Tablet 1 TAB PO (18:25)
[2022-06-05] MEDS: LORazepam 2 mg/mL INJ 1 mL 0.5 MG IVP (18:48)
--- NOTE | 2022-06-05 21:47 | PM.MISC ---
Miscellaneous Note Note: Another noted Tmax: of : 101.3 , antibiotic coverage has been broadened to zosyn , levofloxacin has been discontinued.
[2022-06-05] MEDS: piperacillin-tazobactam 3.375 GM in sodium chloride 0.9% (plus) 50 ML IV (22:21)
[2022-06-06] VITALS (10 sets, daily range): BP systolic 83–140; BP diastolic 51–71; PULSE 64–91; RESP 16–22; TEMP 36.7–38.3; O2SAT 93–98
[2022-06-06] MEDS: enoxaparin 30 mg/0.3 mL Syringe SUBCUT (02:26)
[2022-06-06 04:47] LABS: Basophils % 0.2 %; Eosinophils # 0.2 10^3/uL (0.0-0.8); Eosinophils % 1.2 %; Hematocrit 27.9 % (37.0-47.0); Hemoglobin 8.9 g/dL (11.5-15.3); Lymphocytes # 1.2 10^3/uL (0.8-4.8); Lymphocytes % 9.3 %; Mean Corpuscular HGB Conc 31.9 g/dL (30.0-36.0); Mean Corpuscular Hemoglobin 30.3 pg (28.0-34.0); Mean Corpuscular Volume 94.9 fl (81-99); Mean Platelet Volume 10.4 fL (7.4-10.4); Monocytes % 7.8 %; Neutrophils # 9.94 10^3/uL (1.8-7.7); Neutrophils % 80.8 %; Nucleated Red Blood Cells % 0 %; Platelet Count 164 10^3/cmm (130-400); Red Blood Count 2.94 10^6/uL (4.1-5.3); Red Cell Distribution Width 14.1 % (12.1-15.1); White Blood Count 12.3 10^3/uL (4.0-10.0)
[2022-06-06 05:08] LABS: Anion Gap 11.2 (5-19); Blood Urea Nitrogen 15 mg/dL (8-23); Calcium 8.3 mg/dL (8.5-10.5); Carbon Dioxide 24 mmol/L (22-29); Chloride 102 mmol/L (98-107); Glucose 107 mg/dL (65-115); Osmolality Calculated 279 mOsm/kg (285-295); Potassium 3.2 mmol/L (3.5-5.1); Sodium 134 mmol/L (136-145)
[2022-06-06] MEDS: piperacillin-tazobactam 3.375 GM in sodium chloride 0.9% (plus) 50 ML IV ×3 (05:26→21:28)
[2022-06-06] MEDS: LORazepam 2 mg/mL INJ 1 mL 0.5 MG IVP ×3 (06:36→18:48)
--- NOTE | 2022-06-06 08:01 | PM.PN ---
Subjective Subjective: Patient seen and examined this morning. The patient has a sitter at bedside patient's been agitated all night. Delirium and sundowners noted this a.m. this patient is unable to follow commands appropriately for an examination. Hemoglobin remained stable. Medicine continuing managing patient's postoperative fevers which is being treated by internal medicine for the wound. Vitals/I&O/Wt Last Vital Signs Temp 98.8 F 06/06/22 07:53 Pulse 89 06/06/22 07:53 Resp 16 06/06/22 07:53 BP 140/71 06/06/22 07:53 Pulse Ox 94 06/06/22 07:53 O2 Del Method 06/06/22 07:53 O2 Flow Rate 2 06/05/22 21:29 FiO2 2 06/05/22 08:00 06/05/22 06/06/22 06/06/22 22:59 06:59 14:59 Intake Total 360 / 410 470 / 880 Output Total 400 / 400 200 / 600 Balance -40 / 10 270 / 280 Weight last 48 hrs Weight 129 lb 6.4 oz Physical Exam Narrative: Examination severely limited due to patient's delirium and sundowning and agitation. Distal pulses are palpable. She will involuntarily wiggle her toes and plantarflex and dorsiflex right lower extremity right hip incision was inspected is clean dry and intact with kaden in place no signs of infection no erythema or drainage noted. Silverlon dressing reapplied. Urinary Catheter Management: Arshad: Cath Placed During This Visit: no Data 06/06/22 04:39 06/06/22 04:39 Micro: Microbiology 06/04/22 20:40 Blood Culture - Preliminary Blood NEGATIVE TO DATE 06/04/22 20:35 Blood Culture - Preliminary Blood NEGATIVE TO DATE 06/03/22 16:45 Urine Culture - Preliminary Urine,Clean Catch A&P Assessment and plan (1) Closed subcapital fracture of neck of right femur: Plan Weightbearing as tolerated right lower extremity Posterior hip precautions PT/OT Pain control Ice as needed Resume diet per primary Internal medicine is primary and appreciate their management Abduction pillow in place Silverlon dressing on in place can be changed as needed if saturated DVT prophylaxis Antibiotics per primary for pneumonia Attestations Medical Necessity Statement*: Ongoing right hip fracture care. Coding Level of Care Code Acute Code for Chg Fwd Diagnoses Closed subcapital fracture of neck of right femur S72.011A Time Spent (min) 20
--- NOTE | 2022-06-06 08:21 | PC.NURSE ---
Arshad catheter removed at 0510. Urine specimen sent down earlier in the shift for urine culture.
[2022-06-06] MEDS: calcium carb-vit d 600mg/400unit 1 Tablet 1 EACH PO (09:27)
[2022-06-06] MEDS: iron polysaccharide complex 150 mg Capsule PO (09:27)
[2022-06-06] MEDS: sennosides-docusate Tablet 2 TAB PO (09:27)
[2022-06-06] MEDS: cholecalciferol (vitamin D3) 1,000 unit Tablet 1000 UNIT PO (09:27)
[2022-06-06] MEDS: multivitamin therapeutic Tablet 1 TAB PO (09:27)
[2022-06-06] MEDS: oxyCODONE 5 mg IR Tab/Cap PO (09:30)
--- NOTE | 2022-06-06 09:35 | XRR_ITS ---
PROCEDURE INFORMATION: Exam: XR Chest Exam date and time: 06/06/2022 11:49 AM Age: 86 years old Clinical indication: Fever; Additional info: Fever post op TECHNIQUE: Imaging protocol: Radiologic exam of the chest. Views: 1 view. COMPARISON: CR (CHEST, ) 06/04/2022 9:54 PM FINDINGS: Lungs: There are heterogeneous opacities left lower lobe obscured by left heart border that appear to have progressed from previous exam concerning for pneumonia and atelectasis. There is hazy ground-glass opacification remaining lung anderson relatively stable and suggest superimposed pulmonary congestion. Pleural spaces: Unremarkable. No pleural effusion. No pneumothorax. Heart/Mediastinum: Heart is enlarged but stable. Bones/joints: Unremarkable for age. XR/XR chest 1V portable [id number] IMPRESSION: Stable pulmonary vascular congestion with worsening left lower lobe infiltrate concerning for superimposed pneumonia.
--- NOTE | 2022-06-06 10:06 | PC.SOCIAL ---
IMM update IMM updated with patient and family at bedside, CM also called son and updated. Copy pg 2 provided. Verbalized an understanding. Initialled, dated, timed, and placed in chart.
[2022-06-06] MEDS: FUROsemide 10 mg/mL SDV 2mL 20 MG IVP (10:54)
[2022-06-06] MEDS: potassium chloride ER 20 mEq Tablet 40 MEQ PO (10:54)
[2022-06-06] MEDS: metoprolol succinate ER (24 HR) 50 mg Tablet 25 MG PO (12:05)
--- NOTE | 2022-06-06 12:43 | PM.PN ---
Subjective Subjective: This morning patient is stating that she was arrested and wished to leave her alone Getting assisted feeding Antibiotics escalated to Zosyn I will request chest x-ray and urine analysis, blood cultures negative so Vitals/I&O/Wt Last Vital Signs Temp 98.8 F 06/06/22 07:53 Pulse 83 06/06/22 08:56 Resp 18 06/06/22 09:30 BP 140/71 06/06/22 07:53 Pulse Ox 95 06/06/22 08:56 O2 Del Method 06/06/22 08:56 O2 Flow Rate 2 06/06/22 08:00 FiO2 2 06/05/22 08:00 06/05/22 06/06/22 06/06/22 22:59 06:59 14:59 Intake Total 360 / 410 470 / 880 290 / 290 Output Total 400 / 400 200 / 600 Balance -40 / 10 270 / 280 290 / 290 Weight last 48 hrs Weight 58.695 kg Physical Exam Narrative: Patient requiring 1.5 L 2 L of oxygen Asking us to leave her alone so she could rest No audible stridor or wheezing Clinically looks slightly dehydrated Abdomen soft Lower extremities no signs of vascular compromise Arshad catheter has been removed Follow commands Nonfocal neuro exam Urinary Catheter Management: Arshad: Cath Placed During This Visit: no Data 06/06/22 04:39 06/06/22 04:39 Micro: Microbiology 06/03/22 16:45 Urine Culture - Final Urine,Clean Catch 06/04/22 20:40 Blood Culture - Preliminary Blood NEGATIVE TO DATE 06/04/22 20:35 Blood Culture - Preliminary Blood NEGATIVE TO DATE A&P Assessment and plan (1) Pneumonia: (2) Fall: (3) Closed subcapital fracture of neck of right femur: (4) Shortness of Breath: (5) Rhabdomyolysis: (6) Tachycardia: (7) Dementia: Plan Left lung infiltrate Pneumonia present Start patient on azithromycin and Zosyn Check MRSA nares check COVID PCR Hypoxia secondary to pneumonia Fracture status post surgical intervention History of dementia without acute exacerbation She takes Haldol 0.5 twice daily at home Pleasant during my evaluation Verbally redirectable Fever without signs of sepsis Secondary to pneumonia Bicarb is normal Blood pressure is stable Check lactic acid Working with PT Awaiting half-way placement Discontinue one-to-one supervision DVT prophylaxis on board Bladder scan as needed basis Attestations Medical Necessity Statement*: Continue medical management Diagnoses Pneumonia J18.9 Fall W19.XXXA Closed subcapital fracture of neck of right femur S72.011A Shortness of Breath R06.02 Rhabdomyolysis M62.82 Tachycardia R00.0 Dementia F03.90
[2022-06-06] MEDS: azithromycin 250 mg Tablet PO (13:29)
[2022-06-06] MEDS: morphine 4 mg/mL SDV 1 mL 1 MG IVP ×2 (14:36→18:48)
[2022-06-06 15:19] LABS: Procalcitonin 0.13 ng/mL (0-0.5)
--- NOTE | 2022-06-06 15:26 | PC.OT ---
Patient requested no Occupational therapy on today's date as she is tired. Occupational therapy will be provided on tomorrow's date.
--- NOTE | 2022-06-06 15:54 | PC.SLP ---
Orders received, chart reviewed. Family and nursing requested patient not be seen since the patient had just fallen asleep. Will continue to monitor and assess the patient when appropriate.
[2022-06-06] MEDS: acetaminophen 1,000 MG/100 ML PIGGYBACK 400 MG IV (21:11)
[2022-06-06] MEDS: chlorhexidine gluconate 0.12% Btl 473 mL 30 ML MUCOUS MEM (21:27)
[2022-06-06 21:58] LABS: Adenovirus Not Detected (NOT DETECT); Chlamydia Pneumoniae Not Detected (NOT DETECT); Coronavirus 229E,HKU1,NL63,OC4 Not Detected (NOT DETECT); Human Metapneumovirus Not Detected (NOT DETECT); Human Rhinovirus/Enterovirus Not Detected (NOT DETECT); Influenza A Not Detected (NOT DETECT); Influenza A H1 Not Detected (NOT DETECT); Influenza A H1-2009 Not Detected (NOT DETECT); Influenza A H3 Not Detected (NOT DETECT); Influenza B Not Detected (NOT DETECT); Mycoplasma Pneumoniae Not Detected (NOT DETECT); Parainfluenza Virus Type 1 Not Detected (NOT DETECT); Parainfluenza Virus Type 2 Not Detected (NOT DETECT); Parainfluenza Virus Type 3 Not Detected (NOT DETECT); Parainfluenza Virus Type 4 Not Detected (NOT DETECT); Respiratory Syncytial Virus A Not Detected (NOT DETECT); Respiratory Syncytial Virus B Not Detected (NOT DETECT); SARS-COV-2 Not Detected (NOT DETECT)
--- NOTE | 2022-06-06 22:01 | PC.PHAR ---
Pharmacokinetic dosing service Date: 06/06/2022 Time: 2199 Objective: Patient: Cristina Whittington Floor: [id number] Age: 86 yo Serum creatinine: 0.5 mg/dL Height: 57.0 Inches Weight (kg): 58.695 Diagnosis: Relevant medical/social history: Cultures and sensitivities: Other labs: Assessment: IBW (kg): 43.23 Dosing wt(kg): 58.695 Estimated Creatinine clearance (ml/min): 55.1 CRCL method: Cockcroft and Gault using ibw(default). Drug selected: Vancomycin Loading dose (mg): 0 Vd (liters): 52.8 (factor used: 0.9 L/kg) Bartolome (hr-1): 0.050 Half life (hrs): 13.86 Recommended dose: 1000 mg Interval: 18 hrs Infusion time (hrs): 1.5 Predicted peak (mcg/mL): 30.7 Predicted trough (mcg/mL): 13.45 Total body weight is being used for vancomycin dosing. Renal function is stable [ ] /unstable [ ] Recommendations: Give Vancomycin 1000 mg q 18 hrs with an expected Cpeak of 30.7 mcg/ml and an expected Ctrough of 13.45 mcg/ml Renal dosing of other antibiotics (review renal dosing of other medications and list guidelines here): Thank you for the consult, will continue to follow. Signature: Lizz Oleary [facility]
[2022-06-07] VITALS (8 sets, daily range): BP systolic 108–160; BP diastolic 57–72; PULSE 66–103; RESP 13–20; TEMP 36.6–37.2; O2SAT 97–99
--- NOTE | 2022-06-07 00:43 | PC.NURSE ---
Bladder scanner received on the floor. Pt scaned d/t no urine output thus far. Bladder scanner estimates > 750 ml. Straight cath performed per orders w/750ml of yellow urine drained. Son at bedside.
[2022-06-07] MEDS: vancomycin 1,000 MG in sodium chloride 0.9% 250 ML 250 MG IV (01:59)
[2022-06-07] MEDS: enoxaparin 30 mg/0.3 mL Syringe SUBCUT (02:20)
[2022-06-07] MEDS: acetaminophen 1,000 MG/100 ML PIGGYBACK 400 MG IV (04:39)
[2022-06-07] MEDS: piperacillin-tazobactam 3.375 GM in sodium chloride 0.9% (plus) 50 ML IV ×2 (05:01→13:24)
[2022-06-07 05:29] LABS: Basophils % 0.3 %; Eosinophils # 0.3 10^3/uL (0.0-0.8); Eosinophils % 2.5 %; Hematocrit 29.5 % (37.0-47.0); Lymphocytes # 1.4 10^3/uL (0.8-4.8); Lymphocytes % 11.6 %; Mean Corpuscular HGB Conc 30.5 g/dL (30.0-36.0); Mean Corpuscular Hemoglobin 29.5 pg (28.0-34.0); Mean Corpuscular Volume 96.7 fl (81-99); Mean Platelet Volume 10.7 fL (7.4-10.4); Monocytes # 0.9 10^3/uL (0.2-0.9); Monocytes % 7.5 %; Neutrophils # 9.12 10^3/uL (1.8-7.7); Neutrophils % 77.5 %; Nucleated Red Blood Cells % 0 %; Platelet Count 184 10^3/cmm (130-400); Red Blood Count 3.05 10^6/uL (4.1-5.3); Red Cell Distribution Width 14.3 % (12.1-15.1); White Blood Count 11.8 10^3/uL (4.0-10.0)
[2022-06-07 05:47] LABS: Lactate (Lactic Acid level) 0.9 mmol/L (0.5-2.2)
[2022-06-07 05:48] LABS: Blood Urea Nitrogen 18 mg/dL (8-23); Calcium 8.2 mg/dL (8.5-10.5); Carbon Dioxide 26 mmol/L (22-29); Chloride 103 mmol/L (98-107); Glucose 103 mg/dL (65-115); Osmolality Calculated 284 mOsm/kg (285-295); Sodium 136 mmol/L (136-145)
[2022-06-07 06:04] LABS: Anion Gap 10.6 (5-19); Potassium 3.6 mmol/L (3.5-5.1)
[2022-06-07] MEDS: LORazepam 2 mg/mL INJ 1 mL 0.5 MG IVP (08:33)
[2022-06-07] MEDS: azithromycin 250 mg Tablet PO (08:33)
[2022-06-07] MEDS: chlorhexidine gluconate 0.12% Btl 473 mL 30 ML MUCOUS MEM ×4 (08:36→21:03)
--- NOTE | 2022-06-07 09:11 | PM.PN ---
Subjective Subjective: Patient was agitated, one-to-one supervision was discontinued Son at the bedside very upset complaining about housekeeping and supervision Patient is heavily sedated Will decrease the dose of Xanax She gets Haldol on as-needed basis at home as well Added quetiapine for tonight Patient could not be discharged to [place] [facility] because of her febrile events Vitals/I&O/Wt Last Vital Signs Temp 98.4 F 06/07/22 07:12 Pulse 84 06/07/22 07:12 Resp 18 06/07/22 07:12 BP 126/72 06/07/22 07:12 Pulse Ox 98 06/07/22 07:12 O2 Del Method 06/07/22 07:12 O2 Flow Rate 2 06/07/22 08:00 FiO2 2 06/05/22 08:00 06/06/22 06/07/22 06/07/22 22:59 06:59 14:59 Intake Total 200 / 490 400 / 890 60 / 60 Output Total 750 / 750 500 / 500 Balance 200 / 490 -350 / 140 -440 / -440 Weight last 48 hrs Weight 58.695 kg Physical Exam Narrative: Patient is heavily sedated Urinary retention, Arshad catheter replaced Euvolemic S1, S2 Nonfocal neuro exam Lower extremity no edema Currently she is on 2 L nasal cannula Hemodynamically stable GCS 15 Urinary Catheter Management: Arshad: Cath Placed During This Visit: no Data 06/07/22 05:18 06/07/22 05:18 Micro: Microbiology 06/05/22 22:15 Urine Culture - Final Urine Catheterized 06/03/22 16:45 Urine Culture - Final Urine,Clean Catch A&P Assessment and plan (1) Dementia: (2) Pneumonia: (3) Fall: (4) Closed subcapital fracture of neck of right femur: (5) Rhabdomyolysis: (6) Shortness of Breath: (7) Tachycardia: Plan Hip fracture status post intervention Postoperative pneumonia Currently on vancomycin and Zosyn Febrile events noted overnight Not ready to be discharged to [place] [facility] Delirium with agitation with underlying dementia Patient will need memory unit after her rehab We will add Seroquel at night along with Haldol which she uses on as-needed basis Discontinue IV Ativan Arshad catheter can be restarted, irritation noted on 2 occasions Continue PT DVT prophylaxis on board The retention noted on bladder scan, will need Arshad catheter placement Son present in the room, he was complaining about housekeeping We did talk about one-to-one supervision Son is concerned that she might try to get out of the bed on her own and might sustain a fall I have tried on bed alarm Attestations Medical Necessity Statement*: Continue medical management, possible discharge tomorrow if remains afebrile Coding Level of Care Code 61813 Diagnoses Dementia F03.90 Pneumonia J18.9 Fall W19.XXXA Closed subcapital fracture of neck of right femur S72.011A Rhabdomyolysis M62.82 Shortness of Breath R06.02 Tachycardia R00.0
--- NOTE | 2022-06-07 12:38 | PC.CHAP ---
Pastoral Care Encounter/Spiritual Assessment Type of Contact [] Declined correctional substance abuse counselor visit [] Patient/Family/Request visit [] Outpatient visit [] Follow-up visit [] Physician referral [] Code/Alert [x] Routine visit [] Staff referral [] Actively dying [] Patient sleeping [] Family support [] [] Out of room [] Palliative care [] [] Receiving care in room [] Pre-surgical visit [] Trauma [] Long length of stay [] ICU visit [] Other: Relational/Emotional Strength [x] Patient feels connected with others/family/visitors/staff [] Distress [] Loneliness/isolation [] Abandonment Spirituality of Patient [x] Person of [place] [] Attends Orthodox of their [place] [x] Believes in Prayer [] Reads Bible or Mosque materials [] There are Spiritual issues to be addressed Independent Insurance Adjuster Interventions [x] Prayer [] Active listening [] Non-anxious presence [] Spiritual/emotional support [] Crisis/trauma care [] Spiritual counseling [] Bereavement support [] Provided bereavement packet [] Provided Bible/devotional materials [] Provided toy/stuffed animal, coloring book to patient or family member [] Provided Communion [] Anointing/[place] [] Salvation [x] Completed spiritual assessment [] Other: Impact on Illness or Injury [] Angry [] Fearful [] Anxious [] Often cries [] Exhaustion [] Unable to work [] Unable to attend jain [] Unable to walk/stand [] Unable to read [] Unable to drive [] Unable to eat/drink [] Unable to sleep [] Unable to be with family [] Patient intubated [] Other: Summary Time spent with patient 10 min
[2022-06-07] MEDS: haloperidol inj 5 mg/mL INJ 1 mL 1 MG IM ×2 (13:20→18:22)
[2022-06-07] MEDS: metoprolol succinate ER (24 HR) 50 mg Tablet 25 MG PO (13:20)
--- NOTE | 2022-06-07 14:24 | PC.SLP ---
Patient remains unresponsive and unable to participate in her swallowing evaluation. Will continue to monitor.
--- NOTE | 2022-06-07 14:24 | PC.OT ---
OT TREATMENT ATTEMPTED. PATIENT IS IN ROOM WITH FAMILY. SHE HAS STRIPPED OFF HER CLOTHES, PULLING AT BLANKETS, DOZIER, PULLING OFF OXYGEN. FAMILY ATTEMPTING TO REDIRECT. OFFERED TO PLACE PATIENT GOWN ON HER; FAMILY STATES THAT SHE WILL JUST TAKE IT BACK OFF. SQUEEZE BALL GIVEN TO KEEP THE PATIENT'S HANDS BUSY INSTEAD OF PULLING AT LINES, ETC. THE PATIENT KEEPS EYES CLOSED BUT DOES THROW THE SQUEEZE BALL TOWARDS FAMILY. PATIENT NOT ABLE TO ACTIVELY PARTICIPATE IN SKILLED OT DUE TO IMPAIRED COGNITION AT THIS TIME.
--- NOTE | 2022-06-07 17:43 | PC.NURSE ---
Patient frequently refuses medications. Unable to swallow whole pills. Refuses to open mouth to swallow crushed pills mixed in applesauce. Patient also pulled her IV. Attempted to place new IV with second nurse with no success. Request sent out for ultrasound guided IV insertion.
[2022-06-07] MEDS: acetaminophen 325 mg Tablet 650 MG PO (19:35)
[2022-06-07] MEDS: quetiapine 25 mg Tablet PO (21:03)
--- NOTE | 2022-06-07 21:42 | P.PN_ITS ---
Subjective Subjective: Patient resting comfortably at bedside and not awakened. Granddaughter is present at bedside updates she has been once again agitated but at this point time she is sleeping comfortably. Informed family no further intervention from orthopedic standpoint and that I will sign off patient at this time and follow them peripherally. The understand patient will follow-up with me in the office in 2 weeks. The incision was checked is clean dry and intact. No signs of infection at this time. Recommends continue to be covered and monitored closely as patient given her dementia and sundowning have concerns of her picking at the incision. Vitals/I&O/Wt Last Vital Signs Temp 98.6 F 06/07/22 20:00 Pulse 84 06/07/22 20:00 Resp 16 06/07/22 20:00 BP 108/65 06/07/22 20:00 Pulse Ox 97 06/07/22 20:28 O2 Del Method 06/07/22 20:28 O2 Flow Rate 2 06/07/22 20:28 FiO2 2 06/05/22 08:00 06/07/22 06/07/22 06/07/22 06:59 14:59 22:59 Intake Total 400 / 890 60 / 60 50 / 110 Output Total 750 / 750 500 / 500 Balance -350 / 140 -440 / -440 50 / -390 Weight last 48 hrs Weight 129 lb 6.4 oz Physical Exam Narrative: Patient resting comfortably not awaken for examination. Her distal pulses are palpable lower extremities warm well perfused. Dressing on in place Silverlon inspected incision which is clean dry and intact with kaden in place dressing reapplied. No signs of infection. Urinary Catheter Management: Arshad: Cath Placed During This Visit: yes Reason for Continuing Indwelling Catheter: Acute Urinary Retention or Obstruction Urinary Catheter Date of Insertion: 06/07/22 Urinary Catheter Time of Insertion: 11:00 Data 06/07/22 05:18 06/07/22 05:18 Micro: Microbiology 06/06/22 05:30 MRSA Culture - Final Nose 06/05/22 22:15 Urine Culture - Final Urine Catheterized A&P Assessment and plan (1) Closed subcapital fracture of neck of right femur: Plan Weightbearing as tolerated right lower extremity Posterior hip precautions PT/OT Pain control Ice as needed Resume diet per primary Internal medicine is primary and appreciate their management Abduction pillow in place Silverlon dressing on in place can be changed as needed if saturated DVT prophylaxis Antibiotics per primary for pneumonia Orthopedic surgery team will sign off patient at this time and follow periph erally. Appreciate you allowing Me to partake in the care of this patient. If there is any questions pertaining to patient's orthopedic care feel free to contact myself or my office. Would recommend patient follow-up with me in the office in 2 weeks. Patient will receive appropriate discharge structure as well as pain medication DVT prophylaxis postoperatively. Continue to keep incision clean dry and intact. All questions from family answered.. Attestations Medical Necessity Statement*: Ongoing right femoral neck fracture care Coding Level of Care Code Acute Code for Chg Fwd Diagnoses Closed subcapital fracture of neck of right femur S72.011A Time Spent (min) 25
[2022-06-07] MEDS: TRAMadol 50 mg Tablet PO (23:10)
[2022-06-08] VITALS (7 sets, daily range): BP systolic 121–144; BP diastolic 70–83; PULSE 74–87; RESP 16–17; TEMP 36.8–37.1; O2SAT 93–100
[2022-06-08] MEDS: haloperidol inj 5 mg/mL INJ 1 mL 1 MG IM ×4 (02:01→23:50)
[2022-06-08] MEDS: enoxaparin 30 mg/0.3 mL Syringe SUBCUT (02:01)
[2022-06-08 05:16] LABS: Basophils % 0.2 %; Eosinophils # 0.4 10^3/uL (0.0-0.8); Hematocrit 28.9 % (37.0-47.0); Hemoglobin 9.1 g/dL (11.5-15.3); Lymphocytes # 1.4 10^3/uL (0.8-4.8); Mean Corpuscular HGB Conc 31.5 g/dL (30.0-36.0); Mean Corpuscular Hemoglobin 29.2 pg (28.0-34.0); Mean Corpuscular Volume 92.6 fl (81-99); Mean Platelet Volume 10.5 fL (7.4-10.4); Monocytes # 0.8 10^3/uL (0.2-0.9); Monocytes % 8.5 %; Neutrophils # 6.48 10^3/uL (1.8-7.7); Neutrophils % 71.6 %; Nucleated Red Blood Cells % 0 %; Platelet Count 201 10^3/cmm (130-400); Red Blood Count 3.12 10^6/uL (4.1-5.3); Red Cell Distribution Width 14.2 % (12.1-15.1); White Blood Count 9.1 10^3/uL (4.0-10.0)
[2022-06-08] MEDS: acetaminophen 325 mg Tablet 650 MG PO ×2 (05:22→19:26)
[2022-06-08 05:34] LABS: Anion Gap 10.4 (5-19); Blood Urea Nitrogen 15 mg/dL (8-23); Calcium 8.4 mg/dL (8.5-10.5); Carbon Dioxide 28 mmol/L (22-29); Chloride 104 mmol/L (98-107); Glucose 97 mg/dL (65-115); Osmolality Calculated 289 mOsm/kg (285-295); Potassium 3.4 mmol/L (3.5-5.1); Sodium 139 mmol/L (136-145)
[2022-06-08] MEDS: TRAMadol 50 mg Tablet PO ×3 (06:45→23:35)
[2022-06-08] MEDS: amoxicillin-clav 875-125 mg Tablet 1 TAB PO ×2 (09:56→17:04)
[2022-06-08] MEDS: multivitamin therapeutic Tablet 1 TAB PO (09:56)
[2022-06-08] MEDS: iron polysaccharide complex 150 mg Capsule PO ×2 (09:56→17:04)
[2022-06-08] MEDS: sennosides-docusate Tablet 1 TAB PO (09:56)
[2022-06-08] MEDS: cholecalciferol (vitamin D3) 1,000 unit Tablet 1000 UNIT PO (09:56)
[2022-06-08] MEDS: calcium carb-vit d 600mg/400unit 1 Tablet 1 EACH PO ×2 (09:57→17:04)
[2022-06-08] MEDS: metoprolol succinate ER (24 HR) 50 mg Tablet 25 MG PO (11:55)
--- NOTE | 2022-06-08 12:00 | PC.NURSE ---
Attempted to given patient her Metoprolol and Tylenol for pain. Patient refused to take these. Patient's family is at bedside and witnessed patient's refusal. Patient also refused to left the DIRECTOR PRODUCT take her vitals signs.
--- NOTE | 2022-06-08 12:54 | PM.PN ---
Subjective Subjective: As per the family tramadol, Tylenol and Haldol combination has worked wonders SNF will not take her on Haldol as needed on board medication Patient has dementia and requires a lot of verbal clues to take her medications clinical quality manager will talk with the family to see if we can assist them with [facility] psych placement Patient is requiring assistance to ambulate get out of bed to chair SHe is not independently walking Arshad catheter placed because of urinary retention Vitals/I&O/Wt Last Vital Signs Temp 98.2 F 06/08/22 08:00 Pulse 74 06/08/22 08:52 Resp 16 06/08/22 08:52 BP 144/76 06/08/22 08:00 Pulse Ox 95 06/08/22 08:52 O2 Del Method 06/08/22 08:52 O2 Flow Rate 2 06/08/22 08:00 FiO2 2 06/05/22 08:00 06/07/22 06/08/22 06/08/22 22:59 06:59 14:59 Intake Total 50 / 110 600 / 710 120 / 120 Output Total 650 / 1150 Balance 50 / -390 -50 / -440 120 / 120 Physical Exam Narrative: Patient is awake and alert Eating breakfast Family at the bedside Looks euvolemic Not on oxygen Currently on room air No audible stridor or wheezing No active chest pain Lower extremity no vascular compromise Lethargic and fatigued Needs verbal cues Urinary Catheter Management: Arshad: Cath Placed During This Visit: yes Reason for Continuing Indwelling Catheter: Acute Urinary Retention or Obstruction Urinary Catheter Date of Insertion: 06/07/22 Urinary Catheter Time of Insertion: 11:00 Data 06/08/22 04:43 06/08/22 04:43 Micro: Microbiology 06/06/22 05:30 MRSA Culture - Final Nose 06/05/22 22:15 Urine Culture - Final Urine Catheterized A&P Assessment and plan (1) Dementia: (2) Pneumonia: (3) Fall: (4) Closed subcapital fracture of neck of right femur: (5) Rhabdomyolysis: (6) Shortness of Breath: (7) Tachycardia: Plan Awaiting [facility] psych placement We will discuss with child support case officer and the family to see what would be our safest disposition plan Patient cannot be discharged home because of her recent hip surgery intervention Family wants you to take care of her Tylenol tramadol and Haldol combination has worked wonders as per the family She is currently on soft mechanical diet Off oxygen Postoperative pneumonia: Change IV antibiotics to Augmentin Patient will not cooperate to to let nursing staff give her IV medications She has IM Haldol on as-needed basis Please note she was taking Haldol at home 0.5 mg twice daily as needed Arshad catheter was placed because of urine retention DVT prophylaxis with Lovenox Family meeting conducted twice today, coordinated with case management Attestations Medical Necessity Statement*: Awaiting placement Diagnoses Dementia F03.90 Pneumonia J18.9 Fall W19.XXXA Closed subcapital fracture of neck of right femur S72.011A Rhabdomyolysis M62.82 Shortness of Breath R06.02 Tachycardia R00.0
--- NOTE | 2022-06-08 14:13 | PC.OT ---
OT TREATMENT ATTEMPTED. PATIENT IS SLEEPING SOUNDLY. FAMILY IN ROOM REQUESTS THAT I ALLOW THE PATIENT TO REST. WILL ATTEMPT AGAIN AT ANOTHER TIME.
--- NOTE | 2022-06-08 16:25 | PC.SOCIAL ---
IMM Updated Updated pt's family on IMM. No questions voiced. Provided her family a copy. Initialed, dated, & timed copy in chart.
[2022-06-08] MEDS: sennosides-docusate Tablet 2 TAB PO (17:05)
--- NOTE | 2022-06-08 19:55 | PC.NURSE ---
Upon shift hand-off, marisabel Cuellar requested nurse to administer Tylenol and Haldol. Patient was becoming restless and son stated she was in pain, which nurse confirmed by patient's facial expressions of pain. Haldol was administered IM, and patient tolerated crushed Tylenol in apple sauce fine. Discussion took place regarding marisabel Cuellar's wishes for patient to be rearranged frequently in bed, and nurse verbalized understanding and helped son reposition patient in bed. Marisabel Cuellar was educated about medication cocktail that has helped keep his mother comfortable at this time, and frequency of PRN medications. Patient was assessed as followed: Patient A&Ox0 at this time, unable to state name or talk to nurse. Patient will speak to son, although statements are quiet and do not make sense. Neurological checks performed by nurse, such as hand program admin, [id number], or [id number]-[id number] tests impossible at this time. Posterior lungs clear but diminished, saturating on room air at this time. S1 and S2 heart sounds present but distant. Abdomen soft, flat, and non-tender at this time; bowel sounds present in all four quadrants. Patient's Arshad catheter patent and draining at this time. Nurse unable to assess patient's hip at this time, but pain medication Tylenol administered at this time. Pedal pulses present in bilateral feet, no pressure ulcers or sores assessed by this nurse, but nurse unable to assess patient fully due to patient's inability and refusal to moving frequently. Patient resting in bed positioned on right side, side rails up, and has no apparent needs at this time. Marisabel Cuellar and visitor currently present at bedside, watching television.
--- NOTE | 2022-06-08 20:29 | PC.NURSE ---
Bed bath was given. Patient refused to let nurse clean right side of body, due to previous procedure on done right hip. Arshad was inspected to ensure it was patent and draining. Patient stated she felt much better after bath.
--- NOTE | 2022-06-08 20:38 | PC.NURSE ---
Patient restless, constantly trying to move her blankets around or assistant to the dean the side rails. When asked if patient wanted repositioned, patient did not answer.
--- NOTE | 2022-06-08 20:43 | PC.NURSE ---
Lights turned down, television volume turned down, and nurse/1:1 moved closer to patient in hope of reducing external stimuli and to encourage patient to rest instead of fidget.
[2022-06-08] MEDS: quetiapine 25 mg Tablet PO (21:07)
--- NOTE | 2022-06-08 21:17 | PC.NURSE ---
Patient given Seroquel, did not tolerate well. Patient did not like the bitter taste. Unable to administer chlorhexidine [id number]-[id number] medication at this time. Patient offered choice to be repositioned in bed and patient refused. Patient resting in bed, side rails up, 1:1 sitter closeby and son Polo at bedside at this time.
--- NOTE | 2022-06-08 21:39 | PC.NURSE ---
Son Polo left bedside for the night, and informed nurse to call with any questions or concerns. Patient left resting in bed at this time.
--- NOTE | 2022-06-08 22:21 | PC.NURSE ---
Nurse attempted to remove dentures. Patient kept mouth firmly shut and turned ahead away from nurse. Dentures remain in place at this time.
--- NOTE | 2022-06-08 22:28 | PC.NURSE ---
Nurse attempted to move patient's affected leg to reposition patient and patient firmly said no, no and swatted at nurse. Patient's leg was left alone, but Arshad catheter was placed on patient's opposite side to ensure patency as catheter was noted to run under patient's leg.
--- NOTE | 2022-06-08 23:56 | PC.NURSE ---
Patient given Tramadol for pain/discomfort. Patient also given Haldol as patient was becoming agitated, attempting to pull herself out of bed using bed-rail, and demanding nurse to help her. Patient refused to be repositioned. Patient resting in bed, 3 side rails up, call light within reach, and close to 1:1 sitter.
--- NOTE | 2022-06-09 01:20 | PC.NURSE ---
Nurse rearranged patient's blankets, patient attempted to swat at nurse. Patient remains resting in bed in supine position at this time.
--- NOTE | 2022-06-09 02:07 | PC.NURSE ---
Nurse asked patient if she was hurting or in any pain. Patient did not answer, but fell asleep. Patient left resting with eyes shut and even respirations.
[2022-06-09] MEDS: enoxaparin 30 mg/0.3 mL Syringe SUBCUT (02:52)
--- NOTE | 2022-06-09 03:04 | PC.NURSE ---
Patient allowed nurse to readjust her in bed a little. Patient remains resting on right side.
--- NOTE | 2022-06-09 04:36 | PC.NURSE ---
Patient became agitated, started swatting hands, and did not LINUX UNIX ADMINISTRATOR complete vital signs at this time.
--- NOTE | 2022-06-09 04:49 | PC.NURSE ---
Nurse offered to reposition patient, to rearrange pillow or straighten sheets. Patient refused at this time.
--- NOTE | 2022-06-09 05:33 | PC.NURSE ---
Nurse asked patient if she was n any pain or discomfort. Patient did not answer, and nurse offered to give crushed tylenol in apple sauce if patient opened mouth. Patient refused to open mouth or speak to nurse. Tylenol not administered at this time.
[2022-06-09] MEDS: haloperidol inj 5 mg/mL INJ 1 mL 1 MG IM ×4 (06:45→22:57)
[2022-06-09] MEDS: TRAMadol 50 mg Tablet PO ×3 (06:46→19:27)
[2022-06-09] MEDS: acetaminophen 325 mg Tablet 650 MG PO ×2 (06:46→22:49)
--- NOTE | 2022-06-09 07:01 | PC.NURSE ---
Son Polo at bedside at this time, requested haldol, tylenol and tramadol. Medications administered, patient tolerated well.
[2022-06-09 08:00] VITALS: BP 124/76; PULSE 82; RESP 16; TEMP 36.4; O2SAT 95
[2022-06-09] MEDS: amoxicillin-clav 875-125 mg Tablet 1 TAB PO ×2 (08:03→17:25)
[2022-06-09] MEDS: cholecalciferol (vitamin D3) 1,000 unit Tablet 1000 UNIT PO (08:03)
[2022-06-09] MEDS: multivitamin therapeutic Tablet 1 TAB PO (08:04)
[2022-06-09] MEDS: iron polysaccharide complex 150 mg Capsule PO ×2 (08:04→17:26)
[2022-06-09] MEDS: sennosides-docusate Tablet 2 TAB PO ×2 (08:04→17:26)
[2022-06-09] MEDS: calcium carb-vit d 600mg/400unit 1 Tablet 1 EACH PO ×2 (08:04→17:26)
[2022-06-09 09:26] VITALS: PULSE 81; RESP 18; O2SAT 98
--- NOTE | 2022-06-09 11:22 | PM.PN ---
Subjective Subjective: Family meeting conducted today Patient is calm and cooperative Vitals/I&O/Wt Last Vital Signs Temp 97.6 F 06/09/22 08:00 Pulse 81 06/09/22 09:26 Resp 18 06/09/22 09:26 BP 124/76 06/09/22 08:00 Pulse Ox 98 06/09/22 09:26 O2 Del Method 06/09/22 09:26 O2 Flow Rate 2 06/08/22 08:00 FiO2 2 06/05/22 08:00 06/08/22 06/09/22 06/09/22 22:59 06:59 14:59 Intake Total 480 / 600 120 / 120 Output Total 900 / 900 Balance -900 / -780 480 / -300 120 / 120 Physical Exam Narrative: Awake and alert Calm and cooperative Euvolemic Currently on room air Eating breakfast Oriented to self GCS 15 S1, S2 Doing well on room air Urinary Catheter Management: Arshad: Cath Placed During This Visit: yes Reason for Continuing Indwelling Catheter: Acute Urinary Retention or Obstruction Urinary Catheter Date of Insertion: 06/07/22 Urinary Catheter Time of Insertion: 11:00 Data 06/08/22 04:43 06/08/22 04:43 A&P Assessment and plan (1) Dementia: (2) Pneumonia: (3) Fall: (4) Closed subcapital fracture of neck of right femur: (5) Rhabdomyolysis: (6) Shortness of Breath: (7) Tachycardia: Plan Dementia: No acute exacerbation Doing well with Haldol tramadol and Tylenol combination Aspiration pneumonia and doing well with Augmentin Febrile episode subsided Pain managed with tramadol and Tylenol DVT prophylaxis with Lovenox At the time of discharge she will get full dose aspirin as DVT prophylaxis Family meeting conducted Attestations Medical Necessity Statement*: Awaiting discharge today versus tomorrow Diagnoses Dementia F03.90 Pneumonia J18.9 Fall W19.XXXA Closed subcapital fracture of neck of right femur S72.011A Rhabdomyolysis M62.82 Shortness of Breath R06.02 Tachycardia R00.0
[2022-06-09] MEDS: metoprolol succinate ER (24 HR) 50 mg Tablet 25 MG PO (11:25)
[2022-06-09 12:00] VITALS: BP 145/76; PULSE 75; RESP 16; TEMP 36.7; O2SAT 96
[2022-06-09 16:00] VITALS: BP 147/76; PULSE 78; RESP 14; TEMP 36.8; O2SAT 95
--- NOTE | 2022-06-09 18:05 | PC.NURSE ---
SHIFT SUMMARY MS. GARDUNO SAT IN THE CHAIR FOR SEVERAL HOURS THIS MORNING. TOLERATED WELL. PATIENT HAS HAD ADEQUATE INTAKE AND OUTPUT. DOZIER CATHETER STILL IN PLACE. THIS NURSE APPLIED NEW DRESSING TO SURGICAL SITE. DRESSING C/D/I. SURGICAL INCISION ASYMPTOMATIC. FAMILY AT BEDSIDE.
--- NOTE | 2022-06-09 19:36 | PC.NURSE ---
Patient A&Ox0, but responsive to verbal command. Patient able to perform hand permanent mold supervisor, but unable to perform other neuro checks such as [id number]-qk-[id number] test or qyhm-vy-yczv test. Bilateral anterior lungs auscultated clear, no cough present. S1 and S2 heart sounds present. Active bowel sounds present in all four quadrants. Arshad catheter patent and draining at this time, has no stat lock as patient picks at anything on body. Bilateral pedal pulses present. Patient was given Tramadol at son Polo's request, patient was able to swallow pill whole without any difficulty. Pain medications written on board as well as their frequency, family member educated regarding pain meds and time frequency. Patient currently resting in supine position watching television, 3 side rails up, call light within reach. Laz Cuellar sitting at bedside at this time. Nurse/1:1 sitting within reach to help assist patient with any needs. Neither patient nor family member stated any further needs at this time.
[2022-06-09 19:45] VITALS: BP 151/77; PULSE 79; TEMP 36.8; O2SAT 96
[2022-06-09] MEDS: quetiapine 25 mg Tablet PO (20:00)
--- NOTE | 2022-06-09 20:39 | PC.NURSE ---
Patient appears anxious, keeps pulling on blankets and sheets, pulling on hand rail, and rubbing leg, but not attempting to get out of bed at this time. Son Polo remains at bedside at this time.
--- NOTE | 2022-06-09 20:57 | PC.NURSE ---
Nurse asked son Polo if patient had received bath today. Polo stated he wasn't sure. Nurse gave patient bed bath with bath pack wipes and a shampoo cap, patient tolerated activity well and stated she felt better.
[2022-06-09 22:15] LABS: Add Urine Microscopic? NO; Charge for UA Resulting for Rev
[2022-06-09 22:29] LABS: Bilirubin Urine Neg (Negative); Blood Urine Neg (Negative); Glucose Urine UA Norm (Normal); Ketones Urine 2+ (Negative); Leukocyte Esterase Urine Negative (Negative); Nitrate Urine Negative (Negative); Protein Urine Neg (Negative); Sulfosalicylic Acid Urine Negative (Negative); Urine Appearance Clear (CLEAR); Urine Color Yellow (Yellow); Urobilinogen Urine Norm (Negative); pH Urine 8 (5-7)
--- NOTE | 2022-06-09 23:02 | PC.NURSE ---
Patient became agitated and kept attempting to climb out of bed despite nurse's redirection. Patient stated I need to go home, and nurse explained to patient that she would have to stay here in the hospital for another night but tomorrow she would be able to go. Nurse encouraged patient to get rest, but patient continued pulling herself toward side rails, stating I need to get my shoes on. PRN Haldol was administered, patient tolerated well. Patient continues to state that she needs to leave, but statements have decreased in frequency. Patient now resting in bed, 3 side rails up, call light within reach. Nurse/1:1 remains within reach of patient at this time.
[2022-06-09 23:43] VITALS: BP 150/76; PULSE 79; TEMP 36.4; O2SAT 97
[2022-06-10] VITALS (7 sets, daily range): BP systolic 125–148; BP diastolic 67–78; PULSE 71–98; RESP 15–16; TEMP 36.3–37.8; O2SAT 95–97
[2022-06-10] MEDS: enoxaparin 30 mg/0.3 mL Syringe SUBCUT (03:11)
[2022-06-10] MEDS: TRAMadol 50 mg Tablet PO ×2 (06:00→17:37)
--- NOTE | 2022-06-10 07:38 | P.DS_ITS ---
Discharge Providers Date of Admission: 06/03/22 18:01 Date of Discharge: June 07, 2022 Attending Provider at Admission: Todd Huynh MD Attending Provider at Discharge: Todd Huynh MD Primary Care Provider: Fitz Fowler MD Diagnoses at Discharge Discharge Diagnosis (1) Pneumonia: Status: Acute (2) Fall: Status: Acute (3) Closed subcapital fracture of neck of right femur: Status: Acute (4) Shortness of Breath: Status: Acute (5) Rhabdomyolysis: Status: Acute (6) Tachycardia: Status: Acute (7) Dementia: Status: Acute Reason for Visit Reason for Visit: fall/ hip pain Hospital Course Hospital Course 86-year female who presented to the hospital after sustaining a fall at home, she was found on the floor by the family, it was unknown for how long she stayed on the floor, no active signs of rhabdomyolysis, she has underlying dementia, initially required one-to-one supervision as she was trying to pull her IV lines out, status post surgical intervention, postoperatively patient started spiking fever, x-ray showed left lower lobe infiltrate for which she was started on antibiotics, no active sign of sepsis, culture remains negative, we requested SNF placement however because of her dementia and requirement for Haldol she was not accepted at first however see discharge personnel evaluated her in the hospital to know her needs, she is being excepted with co-pay, family will furni sh her apartment with home furniture then we will discharge her from the hospital Febrile episode subsided with use of antibiotics, she is suffering from aspiration pneumonia, will finish Augmentin course not requiring oxygen, very pleasant and cooperative with use of tramadol, Tylenol and Haldol for now, she is being placed to memory unit at [facility] Physical Exam Narrative: Pleasant but confused, oriented to herself only S1, S2 Currently on 2 L Afebrile Hemodynamically stable Euvolemic Arshad catheter has been removed Urinary Catheter Management: Arshad: Cath Placed During This Visit: no Discharge Data Studies Completed and Pending Completed Studies During Hospitalization Category Date Time Status CT cervical spin wo con* [id number] Stat Cat Scan 06/03/22 14:[address] chest abdpel w/*[id number] Stat Cat Scan 06/03/22 14:[address] head wo con* [id number] Stat Cat Scan 06/03/22 14:44 Completed XR ankle RT min 3V* [id number] Routine Exams 06/04/22 09:09 Completed XR chest 1V portable [id number] Routine Exams 06/04/22 20:03 Completed XR chest 1V portable [id number] Routine Exams 06/06/22 09:35 Completed XR femur RT min 2V* [id number] Routine Exams 06/03/22 21:49 Completed XR hip RT 2-3V wo/w pel* [id number] Routine Exams 06/04/22 14:06 Completed XR hip RT 2-3V wo/w pel* [id number] Stat Exams 06/03/22 14:44 Completed XR knee RT 1-2V 55162 Routine Exams 06/03/22 21:49 Completed XR shoulder RT min 2V* [id number] Routine Exams 06/04/22 09:09 Completed Pending at discharge Category Date Time Status BMP [Basic Metabolic Panel] AM LABS Lab 06/08/22 04:00 Ordered Blood Culture Stat Lab 06/04/22 20:40 Results CBC Auto Diff [Complete Blood Count w/Auto] AM LABS Lab 06/08/22 04:00 Ordered MRSA by PCR AM LABS Lab 06/06/22 05:30 Received Sputum Culture and Gram Stain Routine Lab 06/06/22 12:46 Uncollected Urinalysis Routine Lab 06/06/22 09:35 Ordered Urine Culture Routine Lab 06/05/22 22:15 Received Radiology Impressions Cervical Spine CT 06/03/22 14:44 IMPRESSION: 1. Negative for fracture or dislocation. 2. Grade 1 anterolisthesis of C3 relative to C4 of 3.3 mm similar to prior exam appears likely chronic and degenerative. 3. Biapical pleuroparenchymal fibrosis. Chest/Abdomen/Pelvis CT 06/03/22 14:44 IMPRESSION: 1. Negative for traumatic injury to the chest. 2. Cardiomegaly. 3. Coronary artery atherosclerotic calcifications. 4. Emphysematous changes. 5. Left lower lobe atelectasis versus infiltrate. 6. Scattered prominent subcentimeter short axis nonspecific mediastinal lymph nodes. 7. Left lower lobe suspected calcified granuloma. 8. Large hiatal hernia. IMPRESSION: 1. Right subcapital impacted displaced hip fracture. 2. Healed old left superior and inferior pubic rami fractures. 3. Gallbladder is somewhat prominent, ultrasound could further evaluate this. 4. Diverticulosis without diverticulitis. 5. Right kidney cyst, negative for follow up. COMMENTS: Consistent with the [employer]'s Incidental Findings Committee white paper (J Am Lupe Radiol 2018): Any incidental renal lesion less than 1 cm or classified as too small to characterize, or any incidental cystic renal lesion characterized as simple-appearing, is likely benign. No follow-up imaging is recommended for these lesions per consensus recommendations based on imaging criteria. Head CT 06/03/22 14:44 IMPRESSION: 1. No evidence of intracranial hemorrhage or mass effect. 2. Moderate small vessel changes. Mild parenchymal volume loss. 3. No acute intracranial findings. Femur X-Ray 06/03/22 21:49 IMPRESSION: 1. Right subcapital impacted somewhat rotated hip fracture. 2. Arshad catheter in the urinary bladder with contrast without free extravasation seen. Knee X-Ray 06/03/22 21:49 IMPRESSION: 1. Meniscal chondrocalcinosis. 2. Moderate tricompartmental osteoarthritis of the knee. 3. Scattered vascular calcifications. Ankle X-Ray 06/04/22 09:09 IMPRESSION: 1. No fracture or other significant finding. Shoulder X-Ray 06/04/22 09:09 IMPRESSION: 1. High riding humeral head suggesting rotator cuff degeneration. Anchoring scr ew in the humeral head. 2. Soft tissue calcification along the humeral head suggesting calcific bursitis and/or tendinitis. 3. Degenerative changes. Hip/Pelvis X-Ray 06/04/22 14:06 IMPRESSION: 1. Satisfactory RIGHT hip arthroplasty. 2. Postoperative soft tissue changes around the RIGHT hip. Chest X-Ray 06/06/22 09:35 IMPRESSION: Stable pulmonary vascular congestion with worsening left lower lobe infiltrate concerning for superimposed pneumonia. Laboratory Results WBC 11.8 10^3/uL (4.0-10.0) H 06/07/22 05:18 RBC 3.05 10^6/uL (4.1-5.3) L 06/07/22 05:18 Hgb 9.0 g/dL (11.5-15.3) L 06/07/22 05:18 Hct 29.5 % (37.0-47.0) L 06/07/22 05:18 MCV 96.7 fl (81-99) 06/07/22 05:18 MCH 29.5 pg (28.0-34.0) 06/07/22 05:18 MCHC 30.5 g/dL (30.0-36.0) 06/07/22 05:18 RDW 14.3 % (12.1-15.1) 06/07/22 05:18 Plt Count 184 10^3/cmm (130-400) 06/07/22 05:18 MPV 10.7 fL (7.4-10.4) H 06/07/22 05:18 Neut % (Auto) 77.5 % 06/07/22 05:18 Lymph % (Auto) 11.6 % 06/07/22 05:18 [place] % (Auto) 7.5 % 06/07/22 05:18 Eos % (Auto) 2.5 % 06/07/22 05:18 Baso % (Auto) 0.3 % 06/07/22 05:18 Neut # (Auto) 9.12 10^3/uL (1.8-7.7) H 06/07/22 05:18 Lymph # (Auto) 1.4 10^3/uL (0.8-4.8) 06/07/22 05:18 [place] # (Auto) 0.9 10^3/uL (0.2-0.9) 06/07/22 05:18 Eos # (Auto) 0.3 10^3/uL (0.0-0.8) 06/07/22 05:18 Baso # (Auto) 0.0 10^3/uL (0.0-0.1) 06/07/22 05:18 Nucleated RBC % (auto) 0 % 06/07/22 05:18 Nucleated RBCs # 0.0 /100WBC 06/07/22 05:18 Sodium 136 mmol/L (136-145) 06/07/22 05:18 Potassium 3.6 mmol/L (3.5-5.1) 06/07/22 05:18 Chloride 103 mmol/L (98-107) 06/07/22 05:18 Carbon Dioxide 26 mmol/L (22-29) 06/07/22 05:18 Anion Gap 10.6 (5-19) 06/07/22 05:18 BUN 18 mg/dL (8-23) 06/07/22 05:18 Creatinine 0.4 mg/dL (0.5-0.9) L 06/07/22 05:18 GFR Calculation Not Reportable 06/07/22 05:18 Glucose 103 mg/dL (65-115) 06/07/22 05:18 Calculated Osmolality 284 mOsm/kg (285-295) L 06/07/22 05:18 Lactic Acid 1.7 mmol/L (0.5-2.2) 06/04/22 20:35 Lactate 0.9 mmol/L (0.5-2.2) 06/07/22 05:18 Calcium 8.2 mg/dL (8.5-10.5) L 06/07/22 05:18 Phosphorus 2.5 mg/dL (2.5-4.5) 06/04/22 04:56 Magnesium 1.8 mg/dL (1.7-2.3) 06/04/22 04:56 Total Bilirubin 0.8 mg/dL (0.15-1.2) 06/03/22 15:28 AST 40 U/L (0-32) H 06/03/22 15:28 ALT 15 U/L (0-33) 06/03/22 15:28 Alkaline Phosphatase 108 U/L (35-105) H 06/03/22 15:28 Creatine Kinase 1254 U/L (26-192) H* 06/04/22 04:56 C-Reactive Protein 44.3 mg/L (0.0-4.9) H 06/04/22 04:56 Total Protein 6.0 g/dL (6.6-8.7) L 06/03/22 15:28 Albumin 3.6 g/dL (3.5-5.2) 06/03/22 15:28 Globulin 2.4 g/dL (1.3-4.6) 06/03/22 15:28 Vitamin B12 150 pg/mL (232-1245) L 06/03/22 15:28 Procalcitonin 0.13 ng/mL (0-0.5) 06/06/22 14:35 Urine Color Yellow (Yellow) 06/03/22 16:45 Urine Appearance Hazy (CLEAR) A 06/03/22 16:45 Urine pH 6.5 (5-7) 06/03/22 16:45 Ur Specific [place] 1.015 (1.005-1.030) 06/03/22 16:45 Urine Protein Neg (Negative) 06/03/22 16:45 Urine Glucose (UA) 1+ (Normal) H 06/03/22 16:45 Urine Ketones 2+ (Negative) H 06/03/22 16:45 Urine Blood 3+ (Negative) H 06/03/22 16:45 Urine Nitrate Negative (Negative) 06/03/22 16:45 Urine Bilirubin Neg (Negative) 06/03/22 16:45 Urine Urobilinogen Neg mg/dL (Negative) 06/03/22 16:45 Ur Leukocyte Esterase Negative (Negative) 06/03/22 16:45 Urine RBC 40-50 /hpf (0-2) H 06/03/22 16:45 Urine WBC Rare /hpf (0-5) 06/03/22 16:45 Ur Squamous Epith Cells None /hpf (0-5) 06/03/22 16:45 Amorphous Sediment Not Reportable 06/03/22 16:45 Urine Bacteria None /hpf (NONE) 06/03/22 16:45 Coronavirus 229E (PCR) Not detected (NOT DETECT) 06/06/22 20:02 SARS-CoV-2 (PCR) Not detected (NOT DETECT) 06/06/22 20:02 Blood Type O Positive 06/04/22 18:38 Rho(D) Type Positive 06/04/22 18:38 Antibody Screen Negative 06/04/22 18:38 Vitals Last Vital Signs Temp 98.2 F 06/07/22 03:33 Pulse 66 06/07/22 03:33 Resp 14 06/07/22 03:33 BP 109/57 06/07/22 03:33 Pulse Ox 97 06/07/22 03:33 O2 Del Method 06/07/22 03:33 O2 Flow Rate 2 06/07/22 03:33 FiO2 2 06/05/22 08:00 Discharge Plan Discharge Patient Disposition: Xfer SNF Condition: Stable Prescriptions: New tramadol 50 mg Tablet 50 mg PO Q6H PRN (Reason: Moderate Pain) Qty: 20 0RF quetiapine 25 mg Tablet 25 mg PO BEDTIME Qty: 30 0RF aspirin 325 mg tablet,delayed release (DR/EC) 325 mg PO DAILY Qty: 30 0RF sennosides-docusate sodium [Stool Softener-Laxative] 8.6-50 mg Tablet 1 tab PO DAILY Qty: 30 0RF amoxicillin-pot clavulanate 875-125 mg Tablet 1 tab PO BID Qty: 10 0RF Continued famotidine [Pepcid] 20 mg tablet 20 mg PO DAILY@12 fluticasone propionate [Flonase Allergy Relief] 50 mcg/actuation spray,suspension 1 spray INTRANASAL BID PRN (Reason: Allergy Symptoms) calcium carbonate [Calcium 600] 600 mg calcium (1,500 mg) Tablet 600 mg PO DAILY@12 docusate sodium [[place]' Liqui-Gels] 100 mg Capsule 100 mg PO DAILY PRN (Reason: Constipation) Tylenol 325 mg Tablet 650 mg PO Q6H PRN (Reason: Pain) Zyrtec 10 mg Tablet 10 mg PO DAILY PRN (Reason: Allergy Symptoms) metoprolol succinate 50 mg tablet extended release 24 hr 50 mg PO DAILY@12 Qty: 30 0RF haloperidol 0.5 mg tablet 0.5 mg PO BID PRN (Reason: Anxiety) Qty: 30 0RF Discontinued dicyclomine 20 mg tablet 20 mg PO DAILY@12 celecoxib [Celebrex] 200 mg capsule 200 mg PO DAILY@12 Glucosamine Chondroitin 550-30-1 mg Capsule 1 cap PO BID PRN (Reason: unknown) Discharge Orders: Discharge Order (Routine); Ordered 06/10/22 Ordered By: Todd Huynh Referrals: Fitz Fowler MD [Primary Care Provider] - Discharge Attestations Time Spent in Discharge Care*: less than 30 min Quality Metrics Clinical Quality Measures [ No reported AMI, CVA or VTE this stay] Coding Level of Care Code Acute Code for g Fwd Diagnoses Pneumonia J18.9 Fall W19.XXXA Closed subcapital fracture of neck of right femur S72.011A Shortness of Breath R06.02 Rhabdomyolysis M62.82 Tachycardia R00.0 Dementia F03.90
[2022-06-10] MEDS: amoxicillin-clav 875-125 mg Tablet 1 TAB PO ×2 (08:39→17:36)
[2022-06-10] MEDS: cholecalciferol (vitamin D3) 1,000 unit Tablet 1000 UNIT PO (08:39)
[2022-06-10] MEDS: sennosides-docusate Tablet 1 TAB PO (08:39)
[2022-06-10] MEDS: iron polysaccharide complex 150 mg Capsule PO ×2 (08:39→17:36)
[2022-06-10] MEDS: calcium carb-vit d 600mg/400unit 1 Tablet 1 EACH PO ×2 (08:39→17:37)
[2022-06-10] MEDS: multivitamin therapeutic Tablet 1 TAB PO (08:40)
--- NOTE | 2022-06-10 09:12 | XR_ITS ---
WS: [id number] XR KUB portable [id number] REASON FOR EXAM: constipation FINDINGS: Moderate amount of fecal material throughout a nondilated colon. Large amount of stool within the rec myrtle vault. No significantly distended small bowel. No free air identified. No mass or significant calcification. XR/XR KUB portable [id number] IMPRESSION: Moderate retained fecal material as above.
[2022-06-10] MEDS: lactulose oral liq 20 gm/30 mL UDC 10 GM PO (10:30)
--- NOTE | 2022-06-10 11:55 | P.PN_ITS ---
Subjective Subjective: Patient had a small bowel movement today Voiding trial successful She is able to void urine as per the nursing staff She worked with PT Still taking time to get up from bed 1 person assist Family is asking if she could stay 1 more day They are worried that she will get constipated and probably get obstructed because she has had no bowel movements until today He was given a dose of lactulose today Vitals/I&O/Wt Last Vital Signs Temp 97.4 F L 06/10/22 11:37 Pulse 98 06/10/22 11:37 Resp 16 06/10/22 11:37 BP 127/70 06/10/22 11:37 Pulse Ox 97 06/10/22 11:37 O2 Del Method 06/10/22 07:58 O2 Flow Rate 2 06/08/22 08:00 FiO2 2 06/05/22 08:00 06/09/22 06/10/22 06/10/22 22:59 06:59 14:59 Intake Total 600 / 840 Output Total 800 / 1350 Balance 600 / 290 -800 / -510 Physical Exam Narrative: Awake and alert Pleasant and cooperative Agitation improved S1, S2 Currently on room air GCS 15 Abdomen soft Working with PT Family at the bedside Urinary Catheter Management: Arshad: Cath Placed During This Visit: yes, but has since been removed by the nurse Reason for Continuing Indwelling Catheter: Decision to DC Catheter Urinary Catheter Date of Insertion: 06/07/22 Urinary Catheter Time of Insertion: 11:00 Date Urinary Catheter Removed: 06/10/22 Time Urinary Catheter Discontinued: 10:37 Data 06/08/22 04:43 06/08/22 04:43 Micro: Microbiology 06/04/22 20:35 Blood Culture - Final Blood NO GROWTH AFTER 5 DAYS 06/04/22 20:40 Blood Culture - Final Blood NO GROWTH AFTER 5 DAYS A&P Assessment and plan (1) Dementia: (2) Fall: (3) Closed subcapital fracture of neck of right femur: (4) Pneumonia: (5) Rhabdomyolysis: (6) Tachycardia: (7) Shortness of Breath: (8) Constipation: (9) Urinary retention: Plan Patient will be discharged tomorrow Constipation: Given lactulose this morning Voiding trial remove Arshad catheter Nurse updated Family meeting conducted We will repeat labs for tomorrow Discharge summary has been completed and signed Multiple family meetings conducted today Nurse updated Continue Augmentin For agitation she required Haldol and Tylenol, tramadol for pain Continue PT KUB showing retained fecal material we will give her extra dose of lactulose, enema today Patient will get Augmentin for her aspiration pneumonia which she developed after her surgery No fever Attestations Medical Necessity Statement*: Likely discharge tomorrow Coding Level of Care Code 81766 Straight Forward/Low MDM includes number and complexity of problems actively addressed during encounter, amount and/or complexity of data reviewed/ordered and described risk of complication, morbidity or mortality of management as docu mented Diagnoses Dementia F03.90 Fall W19.XXXA Closed subcapital fracture of neck of right femur S72.011A Pneumonia J18.9 Rhabdomyolysis M62.82 Tachycardia R00.0 Shortness of Breath R06.02 Constipation K59.00 Urinary retention R33.9
--- NOTE | 2022-06-10 13:58 | PC.SOCIAL ---
Addendum entered by Faye Ellis RN 06/10/22 14:54: IMM updated w/ patients granddaughter who was @ bedside. Original Note: IMM update pg 2 of IMM updated and reviewed w/ patients neice who is @ bedside. Copy provided and copy in chart dated, and initialed.
[2022-06-10] MEDS: metoprolol succinate ER (24 HR) 50 mg Tablet 25 MG PO (14:50)
[2022-06-10] MEDS: sennosides-docusate Tablet 2 TAB PO (17:37)
[2022-06-10] MEDS: quetiapine 25 mg Tablet PO (21:19)
[2022-06-10] MEDS: lactulose oral liq 20 gm/30 mL UDC PO (23:31)
[2022-06-11] MEDS: enoxaparin 30 mg/0.3 mL Syringe SUBCUT (02:53)
[2022-06-11 04:00] VITALS: BP 126/81; PULSE 91; RESP 16; TEMP 37.3; O2SAT 92
--- NOTE | 2022-06-11 06:48 | PC.NURSE ---
pt unable to void throughout the night, scanned bladder revealed 445ml in bladder. Straight cath produced 350mls dark urine. Pt tolerated well.
[2022-06-11 07:47] VITALS: BP 136/72; PULSE 78; RESP 14; TEMP 36.8; O2SAT 94
[2022-06-11] MEDS: amoxicillin-clav 875-125 mg Tablet 1 TAB PO (09:06)
[2022-06-11] MEDS: calcium carb-vit d 600mg/400unit 1 Tablet 1 EACH PO (09:06)
[2022-06-11] MEDS: iron polysaccharide complex 150 mg Capsule PO (09:06)
[2022-06-11] MEDS: cholecalciferol (vitamin D3) 1,000 unit Tablet 1000 UNIT PO (09:06)
[2022-06-11] MEDS: multivitamin therapeutic Tablet 1 TAB PO (09:06)
[2022-06-11 09:12] VITALS: PULSE 93; RESP 18; O2SAT 96
--- NOTE | 2022-06-11 10:45 | PM.DCS ---
Discharge Providers Date of Admission: 06/03/22 18:01 Date of Discharge: June 11, 2022 Attending Provider at Admission: Todd Huynh MD Attending Provider at Discharge: Aubrie Saleem MD Primary Care Provider: Fitz Fowler MD Diagnoses at Discharge Discharge Diagnosis (1) Dementia: Status: Acute (2) Fall: Status: Acute (3) Closed subcapital fracture of neck of right femur: Status: Acute (4) Pneumonia: Status: Acute (5) Rhabdomyolysis: Status: Acute (6) Tachycardia: Status: Acute (7) Shortness of Breath: Status: Acute (8) Constipation: Status: Acute (9) Urinary retention: Status: Acute Reason for Visit Reason for Visit: fall/ hip pain Brief History: As per Dr. Huynh Cristina Whittington is a 86 year old female known, was found on the ground by the family when EMS was called.? Family is not sure for how long she stayed on the ground, she has been diagnosed with hip fracture, orthopedic medical cost consultant on board.? At the time of my evaluation patient is not able to provide any history however she is wide-awake and alert and very fidgety, tries to get up from her bed She will need one-to-one supervision, family is at the bedside, she is DNR/DNI as per the family, her daughter checks on her on daily basis and cooks for her however she lives alone and manages her daily activities to some extent, she has history of recurrent falls, she uses a cane for ambulation. She does not any history of DE, CHF or coronary artery disease.? CPK around 1400, Hospital Course Hospital Course 86-year female who presented to the hospital after sustaining a fall at home, she was found on the floor by the family, it was unknown for how long she stayed on the floor, no active signs of rhabdomyolysis, she has underlying dementia, initially required one-to-one supervision as she was trying to pull her IV lines out, status post surgical intervention, postoperatively patient started spiking fever, x-ray showed left lower lobe infiltrate for which she was started on antibiotics, no active sign of sepsis, culture remains negative, we requested SNF placement however because of her dementia and requirement for Haldol she was not accepted at first however see discharge personnel evaluated her in the hospital to know her needs, she is being excepted with co-pay, family will furnish her apartment with home furniture then we will discharge her from the hospital Febrile episode subsided with use of antibiotics, she is suffering from aspiration pneumonia, will finish Augmentin course not requiring oxygen, very pleasant and cooperative with use of tramadol, Tylenol and Haldol for now, she is being placed to memory unit at [facility]. Patient is retaining urine and therefore will be sent to [place] with tolentino placed. SHe is to have voiding trial later and will be given referral to urology at discharge. Family at bedside updated. DC to NH in stable condition Physical Exam Narrative: Awake and alert Pleasant and cooperative S1, S2 Currently on room air Abdomen soft, non tender Surgical incision intact, no gross edema or drainage noted. Family at the bedside Urinary Catheter Management: Tolentino: Cath Placed During This Visit: yes, but has since been removed by the nurse Reason for Continuing Indwelling Catheter: Decision to DC Catheter Urinary Catheter Date of Insertion: 06/07/22 Urinary Catheter Time of Insertion: 11:00 Date Urinary Catheter Removed: 06/10/22 Time Urinary Catheter Discontinued: 10:37 Discharge Data Studies Completed and Pending Completed Studies During Hospitalization Category Date Time Status CT cervical spin wo con* [id number] Stat Cat Scan 06/03/22 14:[address] chest abdpel w/*[id number] Stat Cat Scan 06/03/22 14:[address] head wo con* [id number] Stat Cat Scan 06/03/22 14:44 Completed XR KUB portable [id number] Routine Exams 06/10/22 09:12 Completed XR ankle RT min 3V* [id number] Routine Exams 06/04/22 09:09 Completed XR chest 1V portable [id number] Routine Exams 06/04/22 20:03 Completed XR chest 1V portable [id number] Routine Exams 06/06/22 09:35 Completed XR femur RT min 2V* [id number] Routine Exams 06/03/22 21:49 Completed XR hip RT 2-3V wo/w pel* [id number] Routine Exams 06/04/22 14:06 Completed XR hip RT 2-3V wo/w pel* [id number] Stat Exams 06/03/22 14:44 Completed XR knee RT 1-2V [id number] Routine Exams 06/03/22 21:49 Completed XR shoulder RT min 2V* [id number] Routine Exams 06/04/22 09:09 Completed Pending at discharge Category Date Time Status Sputum Culture and Gram Stain Routine Lab 06/06/22 12:46 Uncollected Radiology Impressions Cervical Spine CT 06/03/22 14:44 IMPRESSION: 1. Negative for fracture or dislocation. 2. Grade 1 anterolisthesis of C3 relative to C4 of 3.3 mm similar to prior exam appears likely chronic and degenerative. 3. Biapical pleuroparenchymal fibrosis. Chest/Abdomen/Pelvis CT 06/03/22 14:44 IMPRESSION: 1. Negative for traumatic injury to the chest. 2. Cardiomegaly. 3. Coronary artery atherosclerotic calcifications. 4. Emphysematous changes. 5. Left lower lobe atelectasis versus infiltrate. 6. Scattered prominent subcentimeter short axis nonspecific mediastinal lymph nodes. 7. Left lower lobe suspected calcified granuloma. 8. Large hiatal hernia. IMPRESSION: 1. Right subcapital impacted displaced hip fracture. 2. Healed old left superior and inferior pubic rami fractures. 3. Gallbladder is somewhat prominent, ultrasound could further evaluate this. 4. Diverticulosis without diverticulitis. 5. Right kidney cyst, negative for follow up. COMMENTS: Consistent with the [employer]'s Incidental Findings Committee white paper (J Am Lupe Radiol 2018): Any incidental renal lesion less than 1 cm or classified as too small to characterize, or any incidental cystic renal lesion characterized as simple-appearing, is likely benign. No follow-up imaging is recommended for these lesions per consensus recommendations based on imaging criteria. Head CT 06/03/22 14:44 IMPRESSION: 1. No evidence of intracranial hemorrhage or mass effect. 2. Moderate small vessel changes. Mild parenchymal volume loss. 3. No acute intracranial findings. Femur X-Ray 06/03/22 21:49 IMPRESSION: 1. Right subcapital impacted somewhat rotated hip fracture. 2. Tolentino catheter in the urinary bladder with contrast without free extravasation seen. Knee X-Ray 06/03/22 21:49 IMPRESSION: 1. Meniscal chondrocalcinosis. 2. Moderate tricompartmental osteoarthritis of the knee. 3. Scattered vascular calcifications. Ankle X-Ray 06/04/22 09:09 IMPRESSION: 1. No fracture or other significant finding. Shoulder X-Ray 06/04/22 09:09 IMPRESSION: 1. High riding humeral head suggesting rotator cuff degeneration. Anchoring screw in the humeral head. 2. Soft tissue calcification along the humeral head suggesting calcific bursitis and/or tendinitis. 3. Degenerative changes. Hip/Pelvis X-Ray 06/04/22 14:06 IMPRESSION: 1. Satisfactory RIGHT hip arthroplasty. 2. Postoperative soft tissue changes around the RIGHT hip. Chest X-Ray 06/06/22 09:35 IMPRESSION: Stable pulmonary vascular congestion with worsening left lower lobe infiltrate concerning for superimposed pneumonia. KUB X-Ray 06/10/22 09:12 IMPRESSION: Moderate retained fecal material as above. Laboratory Results WBC 9.1 10^3/uL (4.0-10.0) 06/08/22 04:43 RBC 3.12 10^6/uL (4.1-5.3) L 06/08/22 04:43 Hgb 9.1 g/dL (11.5-15.3) L 06/08/22 04:43 Hct 28.9 % (37.0-47.0) L 06/08/22 04:43 MCV 92.6 fl (81-99) 06/08/22 04:43 MCH 29.2 pg (28.0-34.0) 06/08/22 04:43 MCHC 31.5 g/dL (30.0-36.0) 06/08/22 04:43 RDW 14.2 % (12.1-15.1) 06/08/22 04:43 Plt Count 201 10^3/cmm (130-400) 06/08/22 04:43 MPV 10.5 fL (7.4-10.4) H 06/08/22 04:43 Neut % (Auto) 71.6 % 06/08/22 04:43 Lymph % (Auto) 15.0 % 06/08/22 04:43 [place] % (Auto) 8.5 % 06/08/22 04:43 Eos % (Auto) 4.0 % 06/08/22 04:43 Baso % (Auto) 0.2 % 06/08/22 04:43 Neut # (Auto) 6.48 10^3/uL (1.8-7.7) 06/08/22 04:43 Lymph # (Auto) 1.4 10^3/uL (0.8-4.8) 06/08/22 04:43 [place] # (Auto) 0.8 10^3/uL (0.2-0.9) 06/08/22 04:43 Eos # (Auto) 0.4 10^3/uL (0.0-0.8) 06/08/22 04:43 Baso # (Auto) 0.0 10^3/uL (0.0-0.1) 06/08/22 04:43 Nucleated RBC % (auto) 0 % 06/08/22 04:43 Nucleated RBCs # 0.0 /100WBC 06/08/22 04:43 Sodium 139 mmol/L (136-145) 06/08/22 04:43 Potassium 3.4 mmol/L (3.5-5.1) L 06/08/22 04:43 Chloride 104 mmol/L (98-107) 06/08/22 04:43 Carbon Dioxide 28 mmol/L (22-29) 06/08/22 04:43 Anion Gap 10.4 (5-19) 06/08/22 04:43 BUN 15 mg/dL (8-23) 06/08/22 04:43 Creatinine 0.3 mg/dL (0.5-0.9) L 06/08/22 04:43 GFR Calculation Not Reportable 06/08/22 04:43 Glucose 97 mg/dL (65-115) 06/08/22 04:43 Calculated Osmolality 289 mOsm/kg (285-295) 06/08/22 04:43 Lactic Acid 1.7 mmol/L (0.5-2.2) 06/04/22 20:35 Lactate 0.9 mmol/L (0.5-2.2) 06/07/22 05:18 Calcium 8.4 mg/dL (8.5-10.5) L 06/08/22 04:43 Phosphorus 2.5 mg/dL (2.5-4.5) 06/04/22 04:56 Magnesium 1.8 mg/dL (1.7-2.3) 06/04/22 04:56 Total Bilirubin 0.8 mg/dL (0.15-1.2) 06/03/22 15:28 AST 40 U/L (0-32) H 06/03/22 15:28 ALT 15 U/L (0-33) 06/03/22 15:28 Alkaline Phosphatase 108 U/L (35-105) H 06/03/22 15:28 Creatine Kinase 1254 U/L (26-192) H* 06/04/22 04:56 C-Reactive Protein 44.3 mg/L (0.0-4.9) H 06/04/22 04:56 Total Protein 6.0 g/dL (6.6-8.7) L 06/03/22 15:28 Albumin 3.6 g/dL (3.5-5.2) 06/03/22 15:28 Globulin 2.4 g/dL (1.3-4.6) 06/03/22 15:28 Vitamin B12 150 pg/mL (232-1245) L 06/03/22 15:28 Procalcitonin 0.13 ng/mL (0-0.5) 06/06/22 14:35 Urine Color Yellow (Yellow) 06/06/22 22:08 Urine Appearance Clear (CLEAR) 06/06/22 22:08 Urine pH 8 (5-7) H 06/06/22 22:08 Ur Specific [place] 1.010 (1.005-1.030) 06/06/22 22:08 Urine Protein Neg (Negative) 06/06/22 22:08 Urine Glucose (UA) Norm (Normal) 06/06/22 22:08 Urine Ketones 2+ (Negative) H 06/06/22 22:08 Urine Blood Neg (Negative) 06/06/22 22:08 Urine Nitrate Negative (Negative) 06/06/22 22:08 Urine Bilirubin Neg (Negative) 06/06/22 22:08 Prot Sulfosalicylic Acd Negative (Negative) 06/06/22 22:08 Urine Urobilinogen Norm mg/dL (Negative) 06/06/22 22:08 Ur Leukocyte Esterase Negative (Negative) 06/06/22 22:08 Urine RBC 40-50 /hpf (0-2) H 06/03/22 16:45 Urine WBC Rare /hpf (0-5) 06/03/22 16:45 Ur Squamous Epith Cells None /hpf (0-5) 06/03/22 16:45 Amorphous Sediment Not Reportable 06/03/22 16:45 Urine Bacteria None /hpf (NONE) 06/03/22 16:45 Coronavirus 229E (PCR) Not detected (NOT DETECT) 06/06/22 20:02 SARS-CoV-2 (PCR) Not detected (NOT DETECT) 06/06/22 20:02 Blood Type O Positive 06/04/22 18:38 Rho(D) Type Positive 06/04/22 18:38 Antibody Screen Negative 06/04/22 18:38 Vitals Last Vital Signs Temp 98.3 F 06/11/22 07:47 Pulse 93 06/11/22 09:12 Resp 18 06/11/22 09:12 BP 136/72 06/11/22 07:47 Pulse Ox 96 06/11/22 09:12 O2 Del Method 06/11/22 09:12 O2 Flow Rate 2 06/10/22 20:00 FiO2 2 06/05/22 08:00 Discharge Plan Discharge Patient Disposition: Xfer [facility] Condition: Stable Prescriptions: New quetiapine 25 mg Tablet 25 mg PO BEDTIME Qty: 30 0RF Stool Softener-Laxative 8.6-50 mg Tablet 1 tab PO DAILY Qty: 30 0RF tramadol 50 mg Tablet 50 mg PO Q6H PRN (Reason: Moderate Pain) Qty: 20 0RF amoxicillin-pot clavulanate 875-125 mg Tablet 1 tab PO BID Qty: 10 0RF aspirin 325 mg tablet,delayed release (DR/EC) 325 mg PO DAILY Qty: 30 0RF Continued famotidine [Pepcid] 20 mg tablet 20 mg PO DAILY@12 fluticasone propionate [Flonase Allergy Relief] 50 mcg/actuation spray,suspension 1 spray INTRANASAL BID PRN (Reason: Allergy Symptoms) calcium carbonate [Calcium 600] 600 mg calcium (1,500 mg) Tablet 600 mg PO DAILY@12 docusate sodium [Charlton' Liqui-Gels] 100 mg Capsule 100 mg PO DAILY PRN (Reason: Constipation) Tylenol 325 mg Tablet 650 mg PO Q6H PRN (Reason: Pain) Zyrtec 10 mg Tablet 10 mg PO DAILY PRN (Reason: Allergy Symptoms) haloperidol 0.5 mg tablet 0.5 mg PO BID PRN (Reason: Anxiety) Qty: 30 0RF metoprolol succinate 50 mg tablet extended release 24 hr 50 mg PO DAILY@12 Qty: 30 0RF Discontinued dicyclomine 20 mg tablet 20 mg PO DAILY@12 celecoxib [Celebrex] 200 mg capsule 200 mg PO DAILY@12 Glucosamine Chondroitin 550-30-1 mg Capsule 1 cap PO BID PRN (Reason: unknown) Discharge Orders: Discharge Order (Routine); Ordered 06/11/22 Ordered By: Aubrie Saleem Referrals: [facility] [Other] [facility] ([facility]) [Outside] Nelson Lobato MD [Physician] - 1 week (Message sent to urology clinic) Fitz Fowler MD [Primary Care Provider] - 06/18/22 11:00 am Hernan Church DO [Physician] - 06/17/22 8:00 am Discharge Diet: Advance as tolerated Discharge Activity: Increase activity as tolerated Patient Instructions: Aspirin (By mouth), Amoxicillin/Clavulanate Potassium (By mouth), Tramadol (By mouth), Quetiapine (By mouth), Senna (By mouth), Hip Fracture (GEN) Activity Restrictions/Additional Instructions: Orthopedic discharge instructions: Patient may be weightbearing as tolerated to the right lower extremity Keep incision clean dry and intact. May shower. No baths or soaks Redress with a dry dressing after patting dry and keeping incision clean Posterior hip precautions as instructed per physical therapy Ice as needed Take pain medication as prescribed Take aspirin as DVT prophylaxis per hospitalist medication at discharge Follow-up with Dr. Church in the office in 2 weeks Contact the office for any questions or concerns Discharge Attestations Time Spent in Discharge Care*: less than 30 min Quality Metrics Clinical Quality Measures [ No reported AMI, CVA or VTE this stay] Coding Level of Care Code 55442 Diagnoses Dementia F03.90 Fall W19.XXXA Closed subcapital fracture of neck of right femur S72.011A Pneumonia J18.9 Rhabdomyolysis M62.82 Tachycardia R00.0 Shortness of Breath R06.02 Constipation K59.00 Urinary retention R33.9
[2022-06-11 11:53] VITALS: BP 100/66; PULSE 87; RESP 17; TEMP 36.8; O2SAT 96
[2022-06-11 13:56] VITALS: BP 100/66; PULSE 87; RESP 17; TEMP 36.8; O2SAT 96
== END 2022-06-11 12:30 | disposition skilled nursing facility (03) | DRG 522 ==
LOC: ER 17:04 → MEDSURG 18:01
PROVIDERS: Internal Medicine; Student in an Organized Health Care Education/Training Program; Admitting Provider Internal Medicine; Emergency Provider Emergency Medicine; PCP Family Medicine; Visit Provider Internal Medicine
PROC: 0SRR0J9 Replacement of Right Hip Joint, Femoral Surface with Synthetic Substitute, Cemented, Open Approach (ICD-10-PCS; CPT 27125; principal; 2022-06-04 11:55)
DX: S72.011A Unspecified intracapsular fracture of right femur, initial encounter for closed fracture (principal); J95.4 Chemical pneumonitis due to anesthesia; M62.82 Rhabdomyolysis; W18.30XA Fall on same level, unspecified, initial encounter; Z66 Do not resuscitate; F03.C0 Unspecified dementia, severe, without behavioral disturbance, psychotic disturbance, mood disturbance, and anxiety; J45.909 Unspecified asthma, uncomplicated; Z86.718 Personal history of other venous thrombosis and embolism; K21.9 Gastro-esophageal reflux disease without esophagitis; M81.0 Age-related osteoporosis without current pathological fracture; R00.0 Tachycardia, unspecified; K59.00 Constipation, unspecified; R33.9 Retention of urine, unspecified
CPT/HCPCS: 36415; 51702; 51798; 70450; 71045; 71260; 72125; 73030; 73502; 73552; 73560; 73610; 74018; 74177; 80048; 80053; 81001; 81003; 82550; 82607; 83605; 83735; 84100; 84145; 85025; 86140; 86850; 86900; 87040; 87086; 87635; 87641; 92523; 92610; 96372; 96374; 97110; 97116; 97161; 97165; 97530; 97535; 99285; C1713; C1776; J0131; J0690; J0696; J1100; J1170; J1630; J1650; J1940; J2060; J2270; J2370; J2405; J2543; J2704; J2710; J3010; J3370; J3490; J7030; J7050; Q0144; Q9967

== ENCOUNTER 2022-06-21 12:27 | Outpatient (CLI) | payer MEDICARE, OTHER, SELFPAY ==
[2022-06-21 13:19] LABS: Add Urine Microscopic? YES; Bilirubin Urine Neg (Negative); Blood Urine 3+ (Negative); Glucose Urine UA Norm (Normal); Ketones Urine Negative (Negative); Leukocyte Esterase Urine 2+ (Negative); Nitrate Urine Negative (Negative); Protein Urine Neg (Negative); Sulfosalicylic Acid Urine Negative (Negative); Urine Appearance Cloudy (CLEAR); Urine Color Light yellow (Yellow); Urobilinogen Urine Neg (Negative); pH Urine 9 (5-7)
[2022-06-21 13:20] LABS: Add Urine Culture? Yes; Bacteria Urine 3+ /hpf; Mucus Urine 2+ /hpf; WBC Urine 40-55 /hpf (0-5)
== END 2022-06-21 12:28 | disposition home or self-care (01) ==
LOC: LAB 12:29
PROVIDERS: PCP Family Medicine; Visit Provider Family Medicine
DX: R32 Unspecified urinary incontinence (principal)
CPT/HCPCS: 81001

== ENCOUNTER → 2022-06-24 09:46 | Outpatient (BNVA) | payer MEDICARE, OTHER, SELFPAY | PROVIDERS: PCP Family Medicine; Visit Provider Student in an Organized Health Care Education/Training Program | DX: Z96.649 Presence of unspecified artificial hip joint (principal); X58.XXXA Exposure to other specified factors, initial encounter; S72.011A Unspecified intracapsular fracture of right femur, initial encounter for closed fracture | CPT/HCPCS: 73502; 99024 ==

== ENCOUNTER 2022-07-18 13:37 | Outpatient (CLI) | payer MEDICARE, OTHER, SELFPAY ==
[2022-07-18 14:26] LABS: Add Urine Microscopic? YES
[2022-07-18 14:27] LABS: Add Urine Culture? No; Bacteria Urine 1+ /hpf; Bilirubin Urine Neg (Negative); Blood Urine 2+ (Negative); Glucose Urine UA Norm (Normal); Ketones Urine Negative (Negative); Leukocyte Esterase Urine 2+ (Negative); Nitrate Urine Negative (Negative); Protein Urine Trace (Negative); Specific Gravity, Urine 1.015 (1.005-1.030); Squamous Epithelial Cell Urine 0-4 /hpf (0-5); Urine Appearance Cloudy (CLEAR); Urine Color Yellow (Yellow); Urobilinogen Urine 1 mg/dL (Negative); WBC Urine >100 /hpf (0-5); pH Urine 6.5 (5-7)
== END 2022-07-18 13:38 | disposition home or self-care (01) ==
PROVIDERS: PCP Family Medicine; Visit Provider Family Medicine
DX: N39.0 Urinary tract infection, site not specified (principal)
CPT/HCPCS: 81001; 87077; 87086; 87186

== ENCOUNTER 2022-07-21 12:16 | Inpatient (IN) | payer MEDICARE, OTHER, SELFPAY ==
[2022-07-21] VITALS (37 sets, daily range): BP systolic 141–168; BP diastolic 44–80; PULSE 72–81; RESP 15–18; TEMP 36.5–36.6; O2SAT 91–100
--- NOTE | 2022-07-21 13:10 | XR_ITS ---
WS: [id number] EXAMINATION: XR hip LT 2-3V wo/w pel* [id number] REASON FOR EXAM: left hip pain, please include pelvis COMPARISON: 06/24/2022 ORDER DATE: 07/21/2022 1:13 PM TECHNIQUE: Frontal internal/external rotation views of the left hip were obtained. X-RAY FINDINGS: There is an acute subcapital fracture of the left hip with upward displacement of the proximal femur to the level of the roof of the acetabulum with the femoral head remaining in the acetabular fossa. T otal hip replacement noted on the right. XR/XR hip LT 2-3V wo/w pel* [id number] IMPRESSION: 1. Acute subcapital fracture of the left hip with proximal displacement of the femoral shaft
--- NOTE | 2022-07-21 13:12 | W.ED.FALL ---
HPI - Fall General: Chief Complaint: Fall Stated Complaint: FALL/ HIP PAIN Time Seen by Provider: 07/21/22 12:36 History of Present Illness: 86-year-old female presents with 2 family members. She is staying at a local detention facility due to her dementia. Often times she gets up out of bed or out of a chair. Sometimes she falls. Family states that today they were trying to do therapy with her and she was unable to bear weight on her left leg due to pain. They did not report any fall today but states that sometimes when she tries to get out of bed or out of a chair she does fall. Therefore, family thinks there is a high probability she may have fallen in the last week. Patient cannot give any history due to her severe dementia Review of Systems General: Reports: ROS unobtainable due to mental status (Dementia limits the review of system) [facility] ED PFSH: Medical History Asthma Closed subcapital fracture of neck of right femur Constipation Cystocele, midline Dementia DVT (deep venous thrombosis) Fall GERD (gastroesophageal reflux disease) IBS (irritable bowel syndrome) Osteoporosis Pneumonia Rectocele Rhabdomyolysis Shortness of Breath SOB (shortness of breath) Tachycardia Urinary retention Surgical History S/P hernia repair S/P left rotator cuff repair Family History Father CAD (coronary artery disease) Atrial fibrillation Myocardial infarction Mother CAD (coronary artery disease) Diabetes Myocardial infarction Family/Other Cancer Social History Smoking and tobacco status: never smoked Alcohol intake: never Lives independently: Yes Marital status: / service: No Current occupational status: retired Current gender identity: Male and Female [place]/Rastafarian: [employer] Agree to transfusion: Yes Physical Exam Narrative: EXAM NARRATIVE: Patient is an elderly, deconditioned 86-year-old. She is preferring to lay on her left side. I did passive range of motion of all of her extremities. The left leg is shortened compared to the right leg. There is still a scar that is healing over the right hip from a relatively recent right hip fracture and subsequent surgery. Did not find any spinal tenderness or neck tenderness. There is no evidence of any head injury. She does not mind when I do range of motion of her arms or right leg. She protest when I do some range of motion of her left leg. Her left knee, tibia, fibula, ankle and foot are all unremarkable. Her pelvis is stable. I do not see any open wounds. HENMT: COMMON NORMALS: normocephalic, atraumatic and external ears normal HEAD & SCALP: normocephalic and atraumatic EXTERNAL EAR: Yes external ears normal MOUTH: no muffled voice Eye: COMMON NORMALS: EOMs intact bilaterally, conjunctivae normal and no scleral icterus CONJUNCTIVA: Yes conjunctivae normal Neck/C-Spine: COMMON NORMALS: no JVD GENERAL: Yes normal visual inspection and Yes trachea midline Resp: COMMON NORMALS: normal respiratory effort and No use of accessory muscles Cardio: COMMON NORMALS: no JVD and regular rate RATE: regular rate GI: COMMON NORMALS: Soft to palpation and non-tender PALPATION: Yes Soft to palpation and No Guarding due to palpation present (GI) Neuro: COMMON NORMALS: moves all extremities, no focal motor deficits and no sensory deficits noted SPEECH: speech normal Skin: COMMON NORMALS: no rashes or lesions noted, turgor normal and no jaundice GENERAL SKIN EXAM: no rashes or lesions noted and turgor normal Course Vital Signs: Vital signs: Vital Signs Temperature 97.7 F 07/21/22 12:20 Pulse Rate 80 07/21/22 12:20 Respiratory Rate 16 07/21/22 12:20 Blood Pressure 168/80 07/21/22 12:20 Pulse Oximetry 98 07/21/22 12:20 Oxygen Delivery Me thod Room Air 07/21/22 12:20 MDM - Fall Medical Decision Making Suspected left hip fracture based on shortened left lower extremity and pain with passive range of motion. A pelvis x-ray and hip x-ray have been ordered. Acetaminophen has been ordered. If there is a fracture, I will order further preoperative work-up and admit. I have reviewed xrays: patient has a subcapital left hip fracture with displacement I have consulted with Dr Gautam. She has suggested patient be admitted to hospitalist and she will consult. I'll add labs/ekg for preop eval. She just had surgery in June so some of this has already been done. Discharge Plan Discharge Patient Disposition: Admitted As Inpatient Clinical Impression: Fall, Closed subcapital fracture of left femur Condition: Stable Prescriptions: No Action famotidine [Pepcid] 20 mg tablet 20 mg PO DAILY@12 fluticasone propionate [Flonase Allergy Relief] 50 mcg/actuation spray,suspension 1 spray INTRANASAL BID PRN (Reason: Allergy Symptoms) (DME) manual wheelchair See Rx Instructions .Route .MEDSUPPLY Qty: 1 0RF Rx Instructions: Please issue manual wheelchair. ciprofloxacin HCl 500 mg tablet 500 mg PO BID 10 Days Qty: 20 0RF calcium carbonate [Calcium 600] 600 mg calcium (1,500 mg) Tablet 600 mg PO DAILY@12 docusate sodium [Charl[place]' Liqui-Gels] 100 mg Capsule 100 mg PO DAILY PRN (Reason: Constipation) Tylenol 325 mg Tablet 650 mg PO Q6H PRN (Reason: Pain) Zyrtec 10 mg Tablet 10 mg PO DAILY PRN (Reason: Allergy Symptoms) quetiapine 25 mg Tablet 25 mg PO BEDTIME Qty: 30 0RF Stool Softener-Laxative 8.6-50 mg Tablet 1 tab PO DAILY Qty: 30 0RF haloperidol 0.5 mg tablet 0.5 mg PO BID PRN (Reason: Anxiety) Qty: 30 0RF metoprolol succinate 50 mg tablet extended release 24 hr 50 mg PO DAILY@12 Qty: 30 0RF aspirin 325 mg tablet,delayed release (DR/EC) 325 mg PO DAILY Qty: 30 0RF Referrals: Fitz Folwer MD [Primary Care Provider] - Coding Level of Care Code ED [employer] for Darius Bowers
[2022-07-21] MEDS: acetaminophen 325 mg Tablet 650 MG PO (13:32)
--- NOTE | 2022-07-21 13:40 | XR_ITS ---
WS: [id number] EXAMINATION: XR chest 1V portable [id number] REASON FOR EXAM: preop COMPARISON: None available. ORDER DATE: 07/21/2022 1:48 PM TECHNIQUE: A single, portable frontal chest x-ray was obtained. X-RAY FINDINGS: The lungs are clear. Pleural spaces are clear. No pleural effusions or pneumothorax. Cardiomediastinal silhouette is unremarkable except for atherosclerotic calcified plaque in the aorta . No evidence for pulmonary edema. Soft tissue and osseous structures are unremarkable except for rotator cuff anchor in the right humer us. No tubes or lines are present. XR/XR chest 1V portable [id number] IMPRESSION: Unremarkable frontal portable chest x-ray.
--- NOTE | 2022-07-21 14:04 | CT_ITS ---
WS: [id number] CT HEAD TECHNIQUE: Noncontrast CT of the head obtained from the skullbase to the vertex. CLINICAL INFORMATION: unwitnessed fall COMPARISON: CT June 03, 2022 DLP: 1076.[address] scans at [facility] use at least one of these dose optimization techniques: automated e xposure control; mA and/or kV adjustment per patient size (includes targeted exams where dose is matc hed to clinical indication); or iterative reconstruction. FINDINGS: No evidence of intracranial hemorrhage or mass effect. Ventricular system and basal cisterns are bhatti nt. Moderate to advanced small vessel changes with moderate parenchymal volume loss. Vascular calcifi cation. No extra-axial fluid collections. No evidence of mass or mass effect. Paranasal sinuses and mastoid air cells are well aerated. .Normal visualized soft tissues. CT/CT head wo con* [id number] IMPRESSION: No significant changes since June 03, 2022 1. No evidence of intracranial hemorrhage or mass effect. 2. Moderate to advanced small vessel changes with moderate parenchymal volume loss. Vascular calcification. 3. No acute intracranial findings.
[2022-07-21 14:37] LABS: Basophils % 0.1 %; Eosinophils % 0.1 %; Hemoglobin 10.2 g/dL (11.5-15.3); Lymphocytes # 1.1 10^3/uL (0.8-4.8); Lymphocytes % 11.8 %; Mean Corpuscular HGB Conc 30.9 g/dL (30.0-36.0); Mean Corpuscular Hemoglobin 27.1 pg (28.0-34.0); Mean Corpuscular Volume 87.8 fl (81-99); Mean Platelet Volume 8.8 fL (7.4-10.4); Monocytes # 0.6 10^3/uL (0.2-0.9); Monocytes % 6.2 %; Neutrophils # 7.53 10^3/uL (1.8-7.7); Nucleated Red Blood Cells % 0 %; Platelet Count 588 10^3/cmm (130-400); Red Blood Count 3.76 10^6/uL (4.1-5.3); White Blood Count 9.3 10^3/uL (4.0-10.0)
[2022-07-21 15:03] LABS: Troponin(5th) Baseline 30 ng/L (0-10)
--- NOTE | 2022-07-21 15:12 | P.HP_ITS ---
Providers/Chief Complaint Primary Care Provider: Fitz Fowler MD Chief Complaint: FALL/ HIP PAIN History of Present Illness Cristina Whittington is a 86 year old female with a past medical history of dementia, history of UTIs, history of aspiration pneumonia, recent history of fall, chronic Arshad, status post right hip hemiarthroplasty, who presents [facility] as she was doing therapy, she was unable to bear weight in the left leg. Currently patient is alert to person, not to place, not to time, does not follow commands, family members at bedside, they tell me that she cannot carry out conversations, she does recognize family members, is alert oriented x1, since her right hip surgery she has been ambulating with a walker, however today she had difficulty bearing weight in the left leg. She has been having a UTI for which she is on ciprofloxacin. I spoke to [place], they told me that she potentially could have had a fall on the fourth, but since then she has been ambulating. She is not on any blood thinners. She is on aspiration precautions Review of Systems General: Reports: ROS unobtainable due to mental status Medications/Allergies Home Medications Medication Instructions Recorded Confirmed Last Taken Type fluticasone propionate 50 1 spray intranasal BID PRN Allergy 04/18/19 06/24/22 04/14/22 History mcg/actuation nasal Symptoms spray,suspension (Flonase Allergy Relief) famotidine 20 mg tablet (Pepcid) 20 mg PO DAILY@10/10/19 06/24/22 06/02/22 History calcium carbonate 600 mg calcium 600 mg PO DAILY@12/15/21 06/24/22 06/02/22 History (1,500 mg) tablet (Calcium) docusate sodium 100 mg capsule 100 mg PO DAILY PRN Constipation 04/14/22 06/24/22 04/14/22 History (Charl[place] Liqui-Gels) acetaminophen 325 mg tablet 650 mg PO Q6H PRN Pain 06/03/22 06/24/22 Unknown History (Tylenol) cetirizine 10 mg tablet (Zyrtec) 10 mg PO DAILY PRN Allergy Symptoms 06/03/22 06/24/22 Unknown History aspirin 325 mg tablet,delayed 325 mg PO DAILY #30 tabs 06/09/22 06/24/22 Unknown Rx release haloperidol 0.5 mg tablet 0.5 mg PO BID PRN Anxiety #30 tabs 06/09/22 06/24/22 Unknown Rx metoprolol succinate 50 mg 50 mg PO DAILY@12 #30 tabs 06/09/22 06/24/22 06/02/22 Rx tablet,extended release 24 hr quetiapine 25 mg tablet 25 mg PO BEDTIME #30 tabs 06/09/22 06/24/22 Unknown Rx sennosides 8.6 mg-docusate sodium 1 tab PO DAILY #30 tabs 06/09/22 06/24/22 Unknown Rx 50 mg tablet (Stool Softener-Laxative) manual wheelchair #1 ea 06/22/22 06/24/22 Unknown Rx ciprofloxacin HCl 500 mg tablet 500 mg PO BID 10 days #20 tabs 07/20/22 Unknown Rx Allergies Allergy/AdvReac Type Severity Reaction Status Date / Time Sulfa (Sulfonamide Allergy Unknown Unknown Verified 07/21/22 12:30 Antibiotics) Tetracyclines Allergy Unknown Unknown Verified 07/21/22 12:30 PFSH Acute PFSH: Medical History Asthma Closed subcapital fracture of neck of right femur Constipation Cystocele, midline Dementia DVT (deep venous thrombosis) Fall GERD (gastroesophageal reflux disease) IBS (irritable bowel syndrome) Osteoporosis Pneumonia Rectocele Rhabdomyolysis Shortness of Breath SOB (shortness of breath) Tachycardia Urinary retention Surgical History S/P hernia repair S/P left rotator cuff repair Family History Father CAD (coronary artery disease) Atrial fibrillation Myocardial infarction Mother CAD (coronary artery disease) Diabetes Myocardial infarction Family/Other Cancer Social History Smoking and tobacco status: never smoked Alcohol intake: never Lives independently: Yes Marital status: / service: No Current occupational status: retired Current gender identity: Male and Female [place]/Buddhist: Zoroastrianism Agree to transfusion: Yes Vitals/I&O/Wt Last Vital Signs Temp 97.7 F 07/21/22 12:20 Pulse 80 07/21/22 12:20 Resp 16 07/21/22 12:20 BP 168/80 07/21/22 12:20 Pulse Ox 98 07/21/22 12:20 O2 Del Method Room Air 07/21/22 12:20 Weight last 48 hrs Weight 54.431 kg Physical Exam Const: COMMON NORMALS: no acute distress ORIENTATION/CONSCIOUSNESS: Yes awake, Yes oriented to person and Yes confused; not oriented to place and not oriented to time HENMT: COMMON NORMALS: normocephalic Eye: COMMON NORMALS: Equal, round and reactive pupils present Neck/C-Spine: COMMON NORMALS: full ROM Lymph: LYMPHATIC: no lymphadenopathy noted Resp: COMMON NORMALS: normal respiratory effort, No retractions, No use of accessory muscles and clear to auscultation bilaterally AUSCULTATION: clear to auscultation bilaterally Cardio: COMMON NORMALS: regular rate, regular rhythm, S1 normal heart sound present and S2 normal heart sound present RATE: regular rate RHYTHM: regular rhythm HEART SOUNDS: S1 normal heart sound present and S2 normal heart sound present GI: COMMON NORMALS: Normal to inspection, nondistended, normoactive bowel sounds present, Soft to palpation and non-tender Extremity: COMMON NORMALS: no pedal edema Neuro: OTHER: Does not follow neurologic testing Data 07/21/22 14:21 07/21/22 14:21 Micro: Microbiology 07/21/22 14:21 Blood Culture - Preliminary Blood SPECIMEN COLLECTED A&P Assessment and plan (1) Closed subcapital fracture of left femur: (2) UTI (urinary tract infection): (3) GERD (gastroesophageal reflux disease): (4) Fall: (5) Dementia: Plan Left hip fracture -Dr. Gautam consulted by ER provider -Pain control morphine -Lovenox for DVT prophylaxis -DNR/DNI UTI, continue Rocephin follow urine cultures CT head pending Chest x-ray pending, blood work pending Dementia Spoke to nursing staff Spoke to ER provider Attestations Medical Necessity Statement*: She requires hospitalization for left hip fracture, outpatient with observation Diagnoses Closed subcapital fracture of left femur S72.012A UTI (urinary tract infection) N39.0 GERD (gastroesophageal reflux disease) K21.9 Fall W19.XXXA Dementia F03.90
[2022-07-21 15:13] LABS: NT Pro B Type Natriuretic Pept 809 pg/mL (0-450); Procalcitonin 0.08 ng/mL (0-0.5)
[2022-07-21 15:24] LABS: Alanine Aminotransferase 10 U/L (0-33); Albumin Level 3.5 g/dL (3.5-5.2); Alkaline Phosphatase 130 U/L (35-105); Aspartate Amino Transferase 15 U/L (0-32); Blood Urea Nitrogen 19 mg/dL (8-23); C Reactive Protein 41.1 mg/L (0.0-4.9); Calcium 9.6 mg/dL (8.5-10.5); Carbon Dioxide 23 mmol/L (22-29); Chloride 99 mmol/L (98-107); Creatinine Clr Calc Pharmacy 43.3747; Globulin 3.4 g/dL (1.3-4.6); Glucose 95 mg/dL (65-115); Magnesium 2.1 mg/dL (1.7-2.3); Osmolality Calculated 284 mOsm/kg (285-295); Sodium 136 mmol/L (136-145); Total Bilirubin 0.4 mg/dL (0.15-1.2); Total Protein 6.9 g/dL (6.6-8.7)
[2022-07-21 15:37] LABS: Add Urine Microscopic? YES; Bilirubin Urine Neg (Negative); Blood Urine 2+ (Negative); Glucose Urine UA Norm (Normal); Ketones Urine 1+ (Negative); Leukocyte Esterase Urine 2+ (Negative); Nitrate Urine Negative (Negative); Protein Urine Neg (Negative); Urine Appearance Cloudy (CLEAR); Urine Color Yellow (Yellow); Urobilinogen Urine Neg (Negative); pH Urine 6 (5-7)
[2022-07-21 15:38] LABS: Add Urine Culture? Yes; Bacteria Urine 2+ /hpf; Mucus Urine TRACE /hpf; RBC Urine 15-25 /hpf (0-2); Squamous Epithelial Cell Urine 0-4 /hpf (0-5); WBC Urine >100 /hpf (0-5)
--- NOTE | 2022-07-21 16:03 | ECG_ITS ---
[facility] Test Date: 2022-07-21 Pat Name: Cristina Whittington Department: Room: Gender: Female Cuff Runner: : 1935 Requested By: Kiel Connell Order Number: [id number] Luly MD: Lucian Hardin M.D. Measurements Intervals [place] Rate: 74 P: 0 WA: 0 QRS: -26 QRSD: 89 T: 29 QT: 362 QTc: 404 Interpretive Statements SINUS RHYTHM WTIH PVCs BORDERLINE LEFT AXIS DEVIATION [QRS AXIS < -20] No previous ECG available for comparison Electronically Signed On 07-21-2022 16:18:06 CDT by Lucian Hardin M.D. [email or web address]
[2022-07-21] MEDS: pantoprazole 40 mg SDV IVP (18:30)
[2022-07-21] MEDS: cefTRIAXone 1,000 MG in sodium chloride 0.9% (plus) 50 ML 100 MG IV (18:30)
[2022-07-21] MEDS: sodium chloride 0.9% 1,000 ML 75 ML IV (18:30)
[2022-07-21] MEDS: enoxaparin 40 mg/0.4 mL Syringe SUBCUT (18:31)
[2022-07-21 19:52] LABS: Troponin 5 2HR 25.02 ng/L (0-10); Troponin 5 2HR Delta -4.98 ABS# (0-10)
[2022-07-21] MEDS: morphine 4 mg/mL SDV 1 mL 1 MG IVP (19:57)
--- NOTE | 2022-07-21 20:52 | P.CONIM_ITS ---
Providers/Reason For Consult Consulting Physician/Specialty*: Jadiel Gautam MD Reason for Consult*: Left subcapital hip fracture Requesting Physician: Kiel Connell MD Attending Physician: Marvin Mayer MD Primary Care Provider: Fitz Fowler MD History of Present Illness History of Present Illness Cristina Whittington is a 86 year old female who presented to the emergency department earlier today. She currently is a resident at [facility], and she is there secondary to dementia. It is noted that she will get up from a chair or out of her bed, and today, she was unable to weight-bear on her left lower extremity. No fall was reported on the day of admission, but there was concern that she may have fallen last week or earlier this week. She is unable to provide a history. Of note, she has a recent right hip hemiarthroplasty secondary to subcapital hip fracture as well. Medications/Allergies Home Medications Medication Instructions Recorded Confirmed Last Taken Type fluticasone propionate 50 1 spray intranasal BID PRN Allergy 04/18/19 07/21/22 04/14/22 History mcg/actuation nasal Symptoms spray,suspension (Flonase Allergy Relief) famotidine 20 mg tablet (Pepcid) 20 mg PO DAILY@12 10/10/19 07/21/22 06/02/22 History calcium carbonate 600 mg calcium 600 mg PO DAILY@12/15/21 07/21/22 06/02/22 History (1,500 mg) tablet (Calcium) docusate sodium 100 mg capsule 100 mg PO DAILY PRN Constipation 04/14/22 07/21/22 04/14/22 History ([employer]' Liqui-Gels) acetaminophen 325 mg tablet 650 mg PO Q6H PRN Pain 06/03/22 07/21/22 Unknown History (Tylenol) cetirizine 10 mg tablet (Zyrtec) 10 mg PO DAILY PRN Allergy Symptoms 06/03/22 07/21/22 Unknown History aspirin 325 mg tablet,delayed 325 mg PO DAILY #30 tabs 06/09/22 07/21/22 Unknown Rx release haloperidol 0.5 mg tablet 0.5 mg PO BID PRN Anxiety #30 tabs 06/09/22 07/21/22 Unknown Rx metoprolol succinate 50 mg 50 mg PO DAILY@12 #30 tabs 03/05/0307/21/22 06/02/22 Rx tablet,extended release 24 hr quetiapine 25 mg tablet 25 mg PO BEDTIME #30 tabs 06/09/22 07/21/22 Unknown Rx sennosides 8.6 mg-docusate sodium 1 tab PO DAILY #30 tabs 06/09/22 07/21/22 Unknown Rx 50 mg tablet (Stool Softener-Laxative) manual wheelchair #1 ea 06/22/22 07/21/22 Unknown Rx ciprofloxacin HCl 500 mg tablet 500 mg PO BID 10 days #20 tabs 07/20/22 07/21/22 Unknown Rx tramadol 50 mg tablet 25 mg PO Q6H PRN Pain 07/21/22 07/21/22 Unknown History Allergies Allergy/AdvReac Type Severity Reaction Status Date / Time Sulfa (Sulfonamide Allergy Unknown Unknown Verified 07/21/22 12:30 Antibiotics) Tetracyclines Allergy Unknown Unknown Verified 07/21/22 12:30 Current Medications Generic Name Dose Route Start Last Admin Trade Name Freq PRN Reason Stop Dose Admin Enoxaparin Sodium 40 mg 07/21/22 18:30 07/21/22 18:31 Enoxaparin 40 Mg/0.4 Ml Syringe SUBCUT 40 mg Q24H ANTWAN Administration Ceftriaxone Sodium 1,000 mg/ 50 mls @ 100 mls/hr 07/21/22 18:00 07/21/22 19:09 Sodium Chloride IV Infused Q24H ANTWAN Infusion Protocol Sodium Chloride 1,000 mls @ 75 mls/hr 07/21/22 17:26 07/21/22 18:30 Sodium Chloride 0.9% IV 75 mls/hr .[id number] ANTWAN Administration Morphine Sulfate 1 mg 07/21/22 17:26 07/21/22 19:57 Morphine 4 Mg/Ml Sdv 1 Ml IVP 1 mg Q4H PRN Administration SEVERE PAIN Pantoprazole Sodium 40 mg 07/21/22 18:00 07/21/22 18:30 Pantoprazole 40 Mg Sdv IVP 40 mg Q24H ANTWAN Administration PFSH Acute PFSH: Medical History Asthma Closed subcapital fracture of neck of right femur Constipation Cystocele, midline Dementia DVT (deep venous thrombosis) Fall GERD (gastroesophageal reflux disease) IBS (irritable bowel syndrome) Osteoporosis Pneumonia Rectocele Rhabdomyolysis Shortness of Breath SOB (shortness of breath) Tachycardia Urinary retention Surgical History S/P hernia repair S/P left rotator cuff repair Family History Father CAD (coronary artery disease) Atrial fibrillation Myocardial infarction Mother CAD (coronary artery disease) Diabetes Myocardial infarction Family/Other Cancer Social History Smoking and tobacco status: never smoked Alcohol intake: never Lives independently: Yes Marital status: / service: No Current occupational status: retired Current gender identity: Male and Female [place]/Adventism: Moravian Agree to transfusion: Yes Vitals/I&O/Wt Last Vital Signs Temp 97.8 F 07/21/22 19:31 Pulse 81 07/21/22 19:31 Resp 16 07/21/22 19:57 BP 155/69 07/21/22 19:31 Pulse Ox 95 07/21/22 19:31 O2 Del Method Room Air 07/21/22 19:31 07/21/22 07/21/22 07/21/22 06:59 14:59 22:59 Intake Total 50 / 50 Balance 50 / 50 Weight last 48 hrs Weight 120 lb Physical Exam Const: COMMON NORMALS: no acute distress, average body habitus and alert GENERAL APPEARANCE: cooperative and comfortable ORIENTATION/CONSCIOUSNESS: Yes awake HENMT: COMMON NORMALS: normocephalic and atraumatic HEAD & SCALP: normocephalic and atraumatic Eye: GENERAL EYE: appearance normal, both eyes and all related structures Chest: COMMONS NORMALS: normal inspection of the chest Resp: COMMON NORMALS: normal respiratory effort EFFORT & INSPECTION: Yes ab le to speak in complete sentences and Yes symmetric chest movement Extremity: LEFT LOWER EXTREMITY: Yes hip joint (Leg is slightly shortened and rotated.) Left hip: Yes ROM (Not evaluated secondary to known fracture.) Neuro: SENSORIUM/ORIENTATION: Yes alert Psych: APPEARANCE: Yes grossly normal Skin: COMMON NORMALS: no rashes or lesions noted GENERAL SKIN EXAM: no rashes or lesions noted Urinary Catheter Management: Arshad: Cath Placed During This Visit: yes Reason for Continuing Indwelling Catheter: Other Urinary Catheter Date of Insertion: 07/21/22 Urinary Catheter Time of Insertion: 13:45 Data 07/21/22 14:21 07/21/22 14:21 Micro: Microbiology 07/21/22 15:10 Blood Culture - Preliminary Blood SPECIMEN COLLECTED 07/21/22 14:21 Blood Culture - Preliminary Blood SPECIMEN COLLECTED Xray Ortho: My impression: X-rays which were obtained in the emergency department today are personally interpreted by me. X-ray series includes an AP pelvis as well as isolated AP and lateral of the patient's left hip. Patient is status post left subcapital hip fracture. There is significant shortening of the extremity and proximal migration of the proximal femur. Findings are consistent with 100% displaced and shortened left subcapital hip fracture. A&P Assessment and plan (1) Closed subcapital fracture of left femur: Plans are made for left hip bipolar hemiarthroplasty secondary to left subcapital hip fracture. The patient is status post right bipolar hip hemiarthroplasty, and this remains in good position and alignment. She presented today with inability to weight-bear. The family has concerns that this fracture did occur earlier than today as there was no history of fall today. When the patient is seen in her room, she suffers with dementia, and she does not have family present. Plans are made for her surgical intervention tomorrow afternoon and request is made to obtain consent from the family. Coding Level of Care Code Acute Code for [facility] Fwd Diagnoses Closed subcapital fracture of left femur S72.012A
[2022-07-21 22:19] LABS: Troponin 5 6HR 22.94 ng/L (0-10); Troponin 5 6HR Delta -7.06 ng/L (0-12)
[2022-07-22] VITALS (17 sets, daily range): BP systolic 118–176; BP diastolic 62–99; PULSE 68–96; RESP 15–24; TEMP 36.1–36.8; O2SAT 91–100
[2022-07-22] MEDS: morphine 4 mg/mL SDV 1 mL 1 MG IVP (03:48)
[2022-07-22 06:35] LABS: Basophils % 0.6 %; Eosinophils % 0.3 %; Hematocrit 29.5 % (37.0-47.0); Hemoglobin 8.9 g/dL (11.5-15.3); Lymphocytes # 1.2 10^3/uL (0.8-4.8); Lymphocytes % 18.1 %; Mean Corpuscular HGB Conc 30.2 g/dL (30.0-36.0); Mean Corpuscular Hemoglobin 26.6 pg (28.0-34.0); Mean Corpuscular Volume 88.3 fl (81-99); Mean Platelet Volume 9.3 fL (7.4-10.4); Monocytes # 0.5 10^3/uL (0.2-0.9); Monocytes % 7.8 %; Neutrophils # 4.87 10^3/uL (1.8-7.7); Neutrophils % 72.6 %; Nucleated Red Blood Cells % 0 %; Platelet Count 514 10^3/cmm (130-400); Red Blood Count 3.34 10^6/uL (4.1-5.3); White Blood Count 6.7 10^3/uL (4.0-10.0)
[2022-07-22 06:58] LABS: Anion Gap 17.3 (5-19); Blood Urea Nitrogen 12 mg/dL (8-23); Calcium 8.6 mg/dL (8.5-10.5); Carbon Dioxide 21 mmol/L (22-29); Chloride 101 mmol/L (98-107); Glucose 74 mg/dL (65-115); Osmolality Calculated 280 mOsm/kg (285-295); Potassium 3.3 mmol/L (3.5-5.1); Sodium 136 mmol/L (136-145)
[2022-07-22 06:59] LABS: Creatinine Clr Calc Pharmacy 43.3747
[2022-07-22] MEDS: pantoprazole 40 mg SDV IVP ×2 (09:41→20:45)
[2022-07-22] MEDS: lidocaine 1% 5 ML in potassium chloride premix 100 ML 52.5 ML IV (09:46)
[2022-07-22 10:08] LABS: Ferritin 127 ng/mL (15-150); Iron 14 ug/dL (37-145)
[2022-07-22 10:24] LABS: Vitamin B12 298 pg/mL (232-1245)
[2022-07-22 10:37] LABS: Folate Level 9.2 ng/mL (4.8-37.3)
--- NOTE | 2022-07-22 11:47 | PC.NURSE ---
PATIENT BEING TAKEN TO PREOP WITH MELINA RANKIN. THIS NURSE GAVE HER REPORT AND EXPLAINED PATIENT HAD PULLED OUT MULTIPLE IV'S SO SHE NO LONGER HAD ONE.
--- NOTE | 2022-07-22 12:03 | PC.NURSE ---
Unable to obtain remaining vitals do to patient being transported to surgery.
--- NOTE | 2022-07-22 12:28 | PC.CHAP ---
Pastoral Care Encounter/Spiritual Assessment Type of Contact [] Declined helium arc welder visit [] Patient/Family/Request visit [] Outpatient visit [] Follow-up visit [] Physician referral [] Code/Alert [x] Routine visit [] Staff referral [] Actively dying [] Patient sleeping [] Family support [] [] Out of room [] Palliative care [] [x] Receiving care in room [] Pre-surgical visit [] Trauma [] Long length of stay [] ICU visit [] Other: Relational/Emotional Strength [x] Patient feels connected with others/family/visitors/staff [] Distress [] Loneliness/isolation [] Abandonment Spirituality of Patient [x] Person of [place] [] Attends Baptism of their [place] [x] Believes in Prayer [] Reads Bible or Episcopal materials [] There are Spiritual issues to be addressed [employer] Interventions [x] Prayer [x] Active listening [x] Non-anxious presence [x] Spiritual/emotional support [] Crisis/trauma care [x] Spiritual counseling [] Bereavement support [] Provided bereavement packet [] Provided Bible/devotional materials [] Provided toy/stuffed animal, coloring book to patient or family member [] Provided Communion [] Anointing/[place] [] Salvation [x] Completed spiritual assessment [] Other: Impact on Illness or Injury [] Angry [] Fearful [] Anxious [] Often cries [] Exhaustion [] Unable to work [] Unable to attend religious [] Unable to walk/stand [] Unable to read [] Unable to drive [] Unable to eat/drink [] Unable to sleep [] Unable to be with family [] Patient intubated [] Other: Summary senior hip replacement has a good attitude well go home Time spent with patient 10 mins
[2022-07-22] MEDS: acetaminophen 1,000 MG/100 ML PIGGYBACK 400 MG IV ×2 (12:29→19:55)
[2022-07-22] MEDS: gabapentin 300 mg Capsule PO (12:29)
[2022-07-22] MEDS: sodium chloride 0.9% 1,000 ML 30 ML IV (12:29)
[2022-07-22] MEDS: ceFAZolin 2,000 MG in sodium chloride 0.9% (plus) 50 ML 100 MG IV ×2 (13:00→20:43)
[2022-07-22] MEDS: ceFAZolin 1,000 mg SDV 1000 MG IRRIGATION (13:51)
[2022-07-22] MEDS: vancomycin 1,000 MG SDV 1000 MG XX (13:51)
--- NOTE | 2022-07-22 14:12 | ANES.PREANE2 ---
Pre-Anesthetic Assessment Height/Weight: Height 1.45 m Weight 54.431 kg Temp Pulse Resp BP Pulse Ox O2 Del Method 98.3 F 91 16 147/79 98 Room Air 07/22/22 12:16 07/22/22 12:16 07/22/22 12:16 07/22/22 12:16 07/22/22 12:16 07/22/22 12:16 Preop Diagnosis: Left subcapital hip fracture Operation Date: 07/22/22 13:00 Proposed Procedures p Hemiarthroplasty Hip(Left) - Mary Gautam MD Familial anesthetic complications: none Was Beta Heather taken within 24 hours: Yes Was Clonidine taken within 24 hours: N/A Social No alcohol and No tobacco Exam clear to auscultation bilaterally and regular rate & rhythm Airway Submandibular: within normal limits Cervical ROM: within normal limits Mallampati: Class II Dentition: partials CV/HEM Hypertension UTI GI Gastroesophageal Reflux Disease Musc/skel Osteoarthritis/DJD and Weakness Neuropsych Dementia Alzheimer's Anesthetic Plan ASA status: 3 Anesthesia: Regional (specify below) (SAB) Medications/Allergies Home Medications Medication Instructions Recorded Confirmed Last Taken Type fluticasone propionate 50 1 spray intranasal BID PRN Allergy 04/18/19 07/21/22 04/14/22 History mcg/actuation nasal Symptoms spray,suspension (Flonase Allergy Relief) famotidine 20 mg tablet (Pepcid) 20 mg PO DAILY@10/10/19 07/21/22 06/02/22 History calcium carbonate 600 mg calcium 600 mg PO DAILY@12/15/21 07/21/22 06/02/22 History (1,500 mg) tablet (Calcium) docusate sodium 100 mg capsule 100 mg PO DAILY PRN Constipation 04/14/22 07/21/22 04/14/22 History ([employer] Liqui-Gels) acetaminophen 325 mg tablet 650 mg PO Q6H PRN Pain 06/03/22 07/21/22 Unknown History (Tylenol) cetirizine 10 mg tablet (Zyrtec) 10 mg PO DAILY PRN Allergy Symptoms 06/03/22 07/21/22 Unknown History aspirin 325 mg tablet,delayed 325 mg PO DAILY #30 tabs 06/09/22 07/21/22 Unknown Rx release haloperidol 0.5 mg tablet 0.5 mg PO BID PRN Anxiety #30 tabs 06/09/22 07/21/22 Unknown Rx metoprolol succinate 50 mg 50 mg PO DAILY@12 #30 tabs 06/09/22 07/21/22 06/02/22 Rx tablet,extended release 24 hr quetiapine 25 mg tablet 25 mg PO BEDTIME #30 tabs 06/09/22 07/21/22 Unknown Rx sennosides 8.6 mg-docusate sodium 1 tab PO DAILY #30 tabs 06/09/22 07/21/22 Unknown Rx 50 mg tablet (Stool Softener-Laxative) manual wheelchair #1 ea 06/22/22 07/21/22 Unknown Rx ciprofloxacin HCl 500 mg tablet 500 mg PO BID 10 days #20 tabs 07/20/22 07/21/22 Unknown Rx tramadol 50 mg tablet 25 mg PO Q6H PRN Pain 07/21/22 07/21/22 Unknown History Allergies Allergy/AdvReac Type Severity Reaction Status Date / Time Sulfa (Sulfonamide Allergy Unknown Unknown Verified 07/21/22 12:30 Antibiotics) Tetracyclines Allergy Unknown Unknown Verified 07/21/22 12:30 Current Medications Generic Name Dose Route Start Last Admin Trade Name Freq PRN Reason Stop Dose Admin Aspirin 325 mg 07/22/22 09:00 07/22/22 07:29 Aspirin 325 Mg Ec Tablet PO Not Given DAILY [facility] Enoxaparin Sodium 40 mg 07/21/22 18:30 07/21/22 18:31 Enoxaparin 40 Mg/0.4 Ml Syringe SUBCUT 40 mg Q24H ANTWAN Administration Ceftriaxone Sodium 1,000 mg/ 50 mls @ 100 mls/hr 07/21/22 18:00 07/21/22 19:09 Sodium Chloride IV Infused Q24H ANTWAN Infusion Protocol Sodium Chloride 1,000 mls @ 75 mls/hr 07/21/22 17:26 07/22/22 03:49 Sodium Chloride 0.9% IV 75 mls/hr .[id number] ANTWAN Infusion Tranexamic Acid 1,000 mg/ 110 mls @ 330 mls/hr 07/22/22 20:08 07/22/22 13:49 Sodium Chloride IV 07/22/22 20:27 Infused ONCE ONE Infusion Sodium Chloride 1,000 mls @ 30 mls/hr 07/22/22 12:15 07/22/22 12:29 Sodium Chloride 0.9% IV 07/23/22 12:14 30 mls/hr .Q24H ANTWAN Administration Morphine Sulfate 1 mg 07/21/22 17:26 07/22/22 03:48 Morphine 4 Mg/Ml Sdv 1 Ml IVP 1 mg Q4H PRN Administration SEVERE PAIN Pantoprazole Sodium 40 mg 07/22/22 08:16 07/22/22 09:41 Pantoprazole 40 Mg Sdv IVP 40 mg Q12H ANTWAN Administration Quetiapine Fumarate 25 mg 07/21/22 21:00 07/21/22 21:24 Quetiapine 25 Mg Tablet PO Not Given BEDTIME ANTWAN Senna/Docusate Sodium 1 tab 07/22/22 09:00 07/22/22 07:30 Sennosides-Docusate Tablet PO Not Given DAILY ANTWAN Sucralfate 1 gm 07/22/22 08:15 07/22/22 09:15 Sucralfate 1 Gm Tablet PO Not Given Q12H ANTWAN PFSH Anesthesia Medical History Asthma Closed subcapital fracture of neck of right femur Constipation Cystocele, midline Dementia DVT (deep venous thrombosis) Fall GERD (gastroesophageal reflux disease) IBS (irritable bowel syndrome) Osteoporosis Pneumonia Rectocele Rhabdomyolysis Shortness of Breath SOB (shortness of breath) Tachycardia Urinary retention Surgical History S/P hernia repair S/P left rotator cuff repair Family History Father CAD (coronary artery disease) Atrial fibrillation Myocardial infarction Mother CAD (coronary artery disease) Diabetes Myocardial infarction Family/Other Cancer Social History Smoking and tobacco status: never smoked Alcohol intake: never Lives independently: Yes Marital status: / service: No Current occupational status: retired Current gender identity: Male and Female [place]/Uatsdin: Samaritan Agree to transfusion: Yes Data Anesthesia 07/22/22 05:57 07/22/22 05:57 Short CBC 07/21/22 07/22/22 Range/Units 14:21 05:57 WBC 9.3 6.7 (4.0-10.0) 10^3/uL Hgb 10.2 L 8.9 L (11.5-15.3) g/dL Hct 33.0 L 29.5 L (37.0-47.0) % MCV 87.8 88.3 (81-99) fl Plt Count 588 H 514 H (130-400) 10^3/cmm Neut % (Auto) 81.0 72.6 % Neut # (Auto) 7.53 4.87 (1.8-7.7) 10^3/uL BMP 07/21/22 07/22/22 14:21 05:57 Sodium 136 136 Potassium 4.0 3.3 L Chloride 99 101 Carbon Dioxide 23 21 L BUN 19 12 Creatinine 0.5 0.3 L Glucose 95 74 Calcium 9.6 8.6 Cardiac Enzymes 07/21/22 07/21/22 07/21/22 Range/Units 14:21 14:21 18:52 Troponin T Baseline 30 H (0-10) ng/L Troponin T 120 Minute 25.02 H (0-10) ng/L Delta Troponin T -4.98 L (0-10) ABS# Troponin T Hi Sens 6Hr (0-10) ng/L Troponin T Hi Sens 6Hr Delta (0-12) ng/L NT-Pro-B Natriuret Pep 809 H (0-450) pg/mL 07/21/22 Range/Units 21:51 Troponin T Baseline (0-10) ng/L Troponin T 120 Minute (0-10) ng/L Delta Troponin T (0-10) ABS# Troponin T Hi Sens 6Hr 22.94 H (0-10) ng/L Troponin T Hi Sens 6Hr Delta -7.06 L (0-12) ng/L NT-Pro-B Natriuret Pep (0-450) pg/mL Liver Function 07/21/22 Range/Units 14:21 Total Bilirubin 0.4 (0.15-1.2) mg/dL AST 15 (0-32) U/L ALT 10 (0-33) U/L Alkaline Phosphatase 130 H (35-105) U/L Albumin 3.5 (3.5-5.2) g/dL Urine 07/21/22 Range/Units 14:34 Urine Color Yellow (Yellow) Urine Appearance Cloudy A (CLEAR) Urine pH 6 (5-7) Ur Specific [place] 1.020 (1.005-1.030) Urine Protein Neg (Negative) Urine Glucose (UA) Norm (Normal) Urine Ketones 1+ H (Negative) Urine Nitrate Negative (Negative) Urine Bilirubin Neg (Negative) Ur Leukocyte Esterase 2+ H (Negative) Urine RBC 15-25 H (0-2) /hpf Urine WBC >100 H (0-5) /hpf Coags 07/21/22 14:21 C-Reactive Protein 41.1 H Microbiology 07/21/22 15:10 Blood Culture - Preliminary Blood SPECIMEN COLLECTED 07/21/22 14:21 Blood Culture - Preliminary Blood SPECIMEN COLLECTED Cardiac Studies: No Data to Display
--- NOTE | 2022-07-22 15:14 | XR_ITS ---
WS: [id number] EXAMINATION: XR pelvis 1-2V* [id number] REASON FOR EXAM: Status post left bipolar hip arthroplasty COMPARISON: Recent studies ORDER DATE: 07/22/2022 3:14 PM FINDINGS: There is no sign of any acute osseous or articular abnormality. Old fracture of the left inferior pub ic ramus. There are no specific soft tissue abnormalities. There are bilateral total hip arthroplasties. There is soft tissue gas surrounding the left hip recen t arthroplasty. There is some soft tissue gas superimposing the symphysis pubis and right obturator r ing probably from bowel. XR/XR pelvis 1-2V* [id number] IMPRESSION: Bilateral total hip arthroplasties. The left hip arthroplasty is recent with so ft tissue changes as noted.
--- NOTE | 2022-07-22 15:22 | PM.OP ---
Operative Report Date of procedure: July 22, 2022 Pre-op diagnosis: Right subcapital hip fracture, displaced Post-op diagnosis: Right subcapital hip fracture, displaced Post-op findings: Significantly displaced right subcapital hip fracture with shortening of the lower extremity. No evidence of acute hematoma, and fibrous tissue within the femoral canal consistent with fracture of more than 1 day duration. Procedure done: Right hip bipolar hemiarthroplasty Implants: The [place] bipolar hip arthroplasty system with an Accolade II 127 degree neck angle hip system size 6 with a V40 taper, a size 46 mm outer diameter by 28 mm inner diameter universal bipolar component head, and a 28 mm outer diameter by +0 mm offset femoral head Specimens removed/disposition: Bone, disposed of Pathology: none sent Surgeon: Mary Gautam Real Estate Transaction Manager: [facility] operating room technicians Anesthesia: General (Per LMA, ASA 3) Estimated blood loss (mL): 50 IV fluids (mL): 1,000 Urine output (mL): 100 Complications: None Findings: Hip was stable at 90 degrees of flexion with 50 degrees of adduction and 80 degrees of internal rotation following surgical intervention. Additionally, it was stable to toe hang. Preoperatively, there is almost no motion of the hip and significant tightening of the surrounding soft tissues likely secondary to more remote fracture. Condition: stable Disposition: PACU (Then return to floor for postoperative rehabilitation and pain management) Brief History: Cristina Whittington is a 86 year old female who presented to the emergency department earlier today.? She currently is a resident at [facility] [place], and she is there secondary to dementia.? It is noted that she will get up from a chair or out of her bed, and today, she was unable to weight-bear on her left lower extremity.? No fall was reported on the day of admission, but there was concern that she may have fallen last week or earlier this week.? She is unable to provide a history.? Of note, she has a recent right hip hemiarthroplasty secondary to subcapital hip fracture as well. Procedure: The patient was brought to the operating theater, and after undergoing adequate general anesthesia per LMA, ASA 3, was transferred to the operating room table. The patient was placed in the full lateral position and held in place with the pegboard. Patient's left lower extremity was draped free and was subsequently prepped and further draped free. A surgical pause was performed prior to commencement of the surgical procedure. During the surgical pause, we confirmed the site and side of surgery as well as administration of preoperative prophylactic antibiotic and availability of equipment. Additionally, we confirmed preoperative surgical markings. X-rays are also reviewed during this time.? Upon positioning, the patient was noted to have early sacral breakdown. Following the surgical pause, an incision was made centering over the greater trochanter continuing proximally and distally as necessary to allow access to the hip joint. Dissection continued through skin and soft tissue using scalpel. Incision was obtained using electrocautery. Tensor fascia avel was identified and incised longitudinally. Sciatic nerve was identified and protected throughout the surgical procedure. A Charnley U retractor was placed with care being taken to protect the sciatic nerve during placement. It was very difficult to isolate the hip as the greater trochanter was significantly elevated above the level of the acetabulum. There was contracture of the muscles in the area. There was no acute hematoma either upon entry into the hip joint itself or in the surrounding soft tissues. There was some fibrous tissue and organized hematoma, however. The hip was internally rotated. Piriformis muscle was then identified, tagged, and subsequently incised from the posterior aspect of the hip joint. The remaining short external rotators were also incised. These were then elevated off the capsule and the capsule was entered in a T-type fashion. Each side of the capsule was then tagged.? The proximal femur was brought into an appropriate position of the femoral neck osteotomy was accomplished. This was in appropriate position for placement of the prosthetic component. At that point, the femoral head was removed from the acetabulum utilizing a corkscrew.? It was subsequently measured for appropriate size of the head component.? The appropriate size trial was chosen. This was a size 46 mm which seated nicely.? We trialed a 45 mm as well as a 47 mm,, but this was felt to not give adequate stability.? Therefore size 46 mm was the chosen size for final implantation. Femoral youth nutritional monitor was then placed and attention was directed to the proximal femur. Initially, the proximal femur was addressed with a box chisel, and this was followed by a canal finder and subsequently broaches. The hip was broached to a size 6 Accolade II 127 degree neck angle hip stem. Size 6 broach was noted to fit nicely and have good fit and fill. Therefore this was to be the chosen component. Trial reduction was accomplished with a 46 mm bipolar cup shell and a 28 mm x +0 mm femoral head. With this, the above-noted stabilities were accomplished. This was felt to be appropriate and therefore trial components were removed and the hip was irrigated. Acetabulum was evaluated for any loose bodies or other soft tissues requiring resection. We then prepared for implantation. The hip stem was impacted into position, and onto this was placed the construct of the universal head bipolar component size 46 mm outer diameter by 28 mm inner diameter with a [place] femoral head size 28 mm outer diameter by +0 mm neck offset. This was placed onto the trunnion of the femoral component. It was impacted into position and pulled upon to assure that there was no dissociation. Once again the hip was irrigated and suctioned dry and was reduced. We then irrigated the hip further with 20 mL of Betadine mixed into 500 mL of normal saline. This was allowed to remain in the wound for approximately 3 minutes. It was then suctioned dry and irrigated with normal saline. This was suctioned dry again and closure was accomplished with 0 Vicryl in the capsular tissues followed by reattachment of the piriformis with 0 Vicryl. Additionally, the tensor was closed with 0 Vicryl in an interrupted fashion. Subcutaneous tissues were closed with a combination of 2-0 Monocryl. Skin was closed with 3-0 Monocryl. This was followed by Dermabsusana Mathur. A sterile dressing was placed consisting of OpSite. The patient was returned the Recovery Room in satisfactory condition.? She was placed in an abduction pillow.? There were no complications. The patient will be discharged to the floor for postoperative rehabilitation and pain management. Related Problem List Diagnoses (1) Closed subcapital fracture of left femur:
--- NOTE | 2022-07-22 15:28 | ANE.PACU2 ---
Inpatient post-anesthesia follow up: Airway intact: Yes Vital signs: Temperature 97.0 F Pulse Rate 69 Respiratory Rate 22 Blood Pressure 156/62 Pulse Oximetry 100 Oxygen Delivery Me thod Room Air Oxygen Flow Rate 6 Fraction of Inspir ed Oxygen Hydration adequate: Yes Nausea and vomiting: No Pain level: 3 Mental status: Baseline
--- NOTE | 2022-07-22 15:38 | P.PN_ITS ---
Subjective Subjective: Patient was seen this morning, she is alert, awake, does not follow commands, daughter at bedside Vitals/I&O/Wt Last Vital Signs Temp 97.0 F L 07/22/22 15:29 Pulse 74 07/22/22 15:29 Resp 22 H 07/22/22 15:29 BP 146/70 07/22/22 15:29 Pulse Ox 96 07/22/22 15:29 O2 Del Method Room Air 07/22/22 15:29 O2 Flow Rate 6 07/22/22 15:13 07/22/22 07/22/22 07/22/22 06:59 14:59 22:59 Intake Total 848.75 / 898.75 160 / 160 0 / 160 Output Total 750 / 750 150 / 900 Balance 848.75 / 648.75 -590 / -590 -150 / -740 Weight last 48 hrs Weight 54.431 kg Physical Exam Const: COMMON NORMALS: no acute distress ORIENTATION/CONSCIOUSNESS: Yes awake and Yes oriented to person; not oriented to place and not oriented to time Resp: COMMON NORMALS: normal respiratory effort, No retractions, No use of accessory muscles and clear to auscultation bilaterally AUSCULTATION: clear to auscultation bilaterally Cardio: COMMON NORMALS: regular rate, regular rhythm, S1 normal heart sound present and S2 normal heart sound present RATE: regular rate RHYTHM: regular rhythm HEART SOUNDS: S1 normal heart sound present and S2 normal heart sound present GI: COMMON NORMALS: Normal to inspection, nondistended, normoactive bowel sounds present and non-tender Extremity: COMMON NORMALS: no pedal edema Neuro: SENSORIUM/ORIENTATION: Yes oriented to person, No oriented to place and No oriented to time Psych: COMMON NORMALS: mental status grossly normal Urinary Catheter Management: Arshad: Cath Placed During This Visit: yes Reason for Continuing Indwelling Catheter: Other Urinary Catheter Date of Insertion: 07/21/22 Urinary Catheter Time of Insertion: 13:45 Data 07/22/22 05:57 07/22/22 05:57 Micro: Microbiology 07/21/22 15:10 Blood Culture - Preliminary Blood NEGATIVE TO DATE 07/21/22 14:21 Blood Culture - Preliminary Blood NEGATIVE TO DATE A&P Assessment and plan (1) Closed subcapital fracture of left femur: (2) UTI (urinary tract infection): (3) GERD (gastroesophageal reflux disease): (4) Fall: (5) Dementia: (6) Iron deficiency anemia: Plan Left hip fracture -Dr. Gautam consulted by ER provider, n.p.o., surgical intervention today -Pain control morphine -Lovenox for DVT prophylaxis -DNR/DNI UTI, continue Rocephin follow urine cultures Has evidence of iron deficiency anemia, start IV Venofer. Dementia Spoke to nursing staff Spoke to ER provider Attestations Medical Necessity Statement*: Patient requires hospitalization, for left hip fracture, UTI, iron deficiency anemia, Diagnoses Closed subcapital fracture of left femur S72.012A UTI (urinary tract infection) N39.0 GERD (gastroesophageal reflux disease) K21.9 Fall W19.XXXA Dementia F03.90 Iron deficiency anemia D50.9
[2022-07-22] MEDS: iron sucrose 200 MG in sodium chloride 0.9% (100 ml) 100 ML 220 MG IV (16:34)
[2022-07-22] MEDS: haloperidol 1 mg Tablet 0.5 MG PO (16:35)
[2022-07-22] MEDS: metoprolol succinate ER (24 HR) 50 mg Tablet PO (16:35)
[2022-07-22] MEDS: sodium chloride 0.9% 1,000 ML 75 ML IV (17:34)
[2022-07-22] MEDS: cefTRIAXone 1,000 MG in sodium chloride 0.9% (plus) 50 ML 100 MG IV (17:35)
[2022-07-22] MEDS: enoxaparin 40 mg/0.4 mL Syringe SUBCUT (17:35)
[2022-07-22] MEDS: sennosides-docusate Tablet 2 TAB PO (17:36)
[2022-07-22] MEDS: oxyCODONE 5 mg IR Tab/Cap PO (17:36)
[2022-07-23] VITALS (10 sets, daily range): BP systolic 106–144; BP diastolic 55–84; PULSE 72–86; RESP 12–18; TEMP 36.3–36.9; O2SAT 93–100
[2022-07-23] MEDS: acetaminophen 1,000 MG/100 ML PIGGYBACK 400 MG IV ×2 (04:13→11:55)
[2022-07-23] MEDS: ceFAZolin 2,000 MG in sodium chloride 0.9% (plus) 50 ML 100 MG IV ×2 (04:53→15:09)
[2022-07-23 06:15] LABS: Basophils % 0.3 %; Eosinophils % 0.3 %; Hematocrit 25.7 % (37.0-47.0); Hemoglobin 7.5 g/dL (11.5-15.3); Lymphocytes # 0.9 10^3/uL (0.8-4.8); Lymphocytes % 9.6 %; Mean Corpuscular HGB Conc 29.2 g/dL (30.0-36.0); Mean Corpuscular Hemoglobin 27.5 pg (28.0-34.0); Mean Corpuscular Volume 94.1 fl (81-99); Mean Platelet Volume 9.2 fL (7.4-10.4); Monocytes # 0.6 10^3/uL (0.2-0.9); Monocytes % 6.2 %; Neutrophils # 7.72 10^3/uL (1.8-7.7); Nucleated Red Blood Cells % 0 %; Platelet Count 447 10^3/cmm (130-400); Red Blood Count 2.73 10^6/uL (4.1-5.3); Red Cell Distribution Width 15.2 % (12.1-15.1); White Blood Count 9.3 10^3/uL (4.0-10.0)
[2022-07-23 06:34] LABS: Blood Urea Nitrogen 8 mg/dL (8-23); Calcium 8.1 mg/dL (8.5-10.5); Carbon Dioxide 18 mmol/L (22-29); Chloride 105 mmol/L (98-107); Glucose 79 mg/dL (65-115); Osmolality Calculated 277 mOsm/kg (285-295); Sodium 135 mmol/L (136-145)
[2022-07-23 06:39] LABS: Anion Gap 15.9 (5-19); Creatinine Clr Calc Pharmacy 43.3747; Potassium 3.9 mmol/L (3.5-5.1)
[2022-07-23] MEDS: sodium chloride 0.9% 1,000 ML 75 ML IV (09:37)
[2022-07-23] MEDS: iron sucrose 200 MG in sodium chloride 0.9% (100 ml) 100 ML 220 MG IV (09:37)
[2022-07-23] MEDS: pantoprazole 40 mg SDV IVP ×2 (09:40→20:58)
[2022-07-23] MEDS: mupirocin oint 22 gm 1 APPLIC NASAL ×2 (09:43→17:49)
[2022-07-23] MEDS: sennosides-docusate Tablet 2 TAB PO ×2 (11:44→17:49)
[2022-07-23] MEDS: oxyCODONE 5 mg IR Tab/Cap PO ×2 (11:44→16:26)
[2022-07-23] MEDS: aspirin 325 mg EC Tablet PO (11:44)
[2022-07-23] MEDS: metoprolol succinate ER (24 HR) 50 mg Tablet PO (11:44)
[2022-07-23] MEDS: sucralfate 1 gm Tablet PO ×2 (11:45→20:56)
[2022-07-23] MEDS: iron polysaccharide complex 150 mg Capsule PO ×2 (11:45→17:49)
[2022-07-23] MEDS: cholecalciferol (vitamin D3) 1,000 unit Tablet 1000 UNIT PO (11:45)
[2022-07-23] MEDS: multivitamin therapeutic Tablet 1 TAB PO (11:45)
[2022-07-23] MEDS: calcium carbonate 500 mg Chew Tablet 1000 MG PO ×2 (11:52→17:49)
--- NOTE | 2022-07-23 14:03 | PM.PN ---
Subjective Subjective: Patient was seen this morning, she is alert, awake, she does not follow commands, she is asking for the doctor, I introduced myself, but she keeps asking where the doctor is, physical therapy is working with her this morning Vitals/I&O/Wt Last Vital Signs Temp 98.4 F 07/23/22 12:13 Pulse 81 07/23/22 12:13 Resp 18 07/23/22 12:13 BP 124/63 07/23/22 12:13 Pulse Ox 93 07/23/22 12:13 O2 Del Method Room Air 07/23/22 07:54 O2 Flow Rate 6 07/22/22 15:13 07/22/22 07/23/22 07/23/22 22:59 06:59 14:59 Intake Total 1199.5 / 1710.75 1150 / 2860.75 210 / 210 Output Total 850 / 1600 300 / 1900 150 / 150 Balance 349.5 / 110.75 850 / 960.75 60 / 60 Physical Exam Const: COMMON NORMALS: no acute distress Resp: COMMON NORMALS: normal respiratory effort, No retractions, No use of accessory muscles and clear to auscultation bilaterally AUSCULTATION: clear to auscultation bilaterally Cardio: COMMON NORMALS: regular rate, regular rhythm, S1 normal heart sound present and S2 normal heart sound present RATE: regular rate RHYTHM: regular rhythm HEART SOUNDS: S1 normal heart sound present and S2 normal heart sound present GI: COMMON NORMALS: Normal to inspection, nondistended, normoactive bowel sounds present and non-tender Extremity: COMMON NORMALS: no pedal edema Urinary Catheter Management: Arshad: Cath Placed During This Visit: yes Reason for Continuing Indwelling Catheter: Perioperative Use in Selected Surgeries Urinary Catheter Date of Insertion: 07/21/22 Urinary Catheter Time of Insertion: 13:45 Data 07/23/22 05:41 07/23/22 05:41 Micro: Microbiology 07/21/22 14:34 Urine Culture - Preliminary Urine,Clean Catch 07/21/22 15:10 Blood Culture - Preliminary Blood NEGATIVE TO DATE 07/21/22 14:21 Blood Culture - Preliminary Blood NEGATIVE TO DATE A&P Assessment and plan (1) Postoperative anemia: (2) UTI (urinary tract infection): (3) GERD (gastroesophageal reflux disease): (4) Fall: (5) Dementia: (6) Iron deficiency anemia: (7) Acute encephalopathy: Plan Left hip fracture -Status post right hip bipolar hemiarthroplasty by Dr. Smith -Pain control morphine -Lovenox for DVT prophylaxis -DNR/DNI Acute postoperative anemia, with chronic anemia -We will transfuse 1 unit PRBC Iron deficiency anemia second dose of IV Venofer UTI, continue Rocephin follow urine cultures Acute encephalopathy, likely sec to underlying dementia, however UTI, anemia could be playing a role Dementia Spoke to nursing staff Spoke to ER provider Plan for today PT OT, continue antibiotic therapy, transfuse 1 unit PRBC, monitor hemoglobin in the afternoon Attestations Medical Necessity Statement*: Requires hospitalization for acute encephalopathy, acute anemia, requiring transfusion, iron deficiency anemia Diagnoses Postoperative anemia D64.9 UTI (urinary tract infection) N39.0 GERD (gastroesophageal reflux disease) K21.9 Fall W19.XXXA Dementia F03.90 Iron deficiency anemia D50.9 Acute encephalopathy G93.40
[2022-07-23] MEDS: cefTRIAXone 1,000 MG in sodium chloride 0.9% (plus) 50 ML 100 MG IV (17:50)
[2022-07-23] MEDS: enoxaparin 40 mg/0.4 mL Syringe SUBCUT (17:50)
[2022-07-23 19:34] LABS: Basophils % 0.3 %; Eosinophils # 0.1 10^3/uL (0.0-0.8); Eosinophils % 0.5 %; Hematocrit 30.1 % (37.0-47.0); Hemoglobin 9.2 g/dL (11.5-15.3); Lymphocytes # 1.4 10^3/uL (0.8-4.8); Lymphocytes % 10.2 %; Mean Corpuscular HGB Conc 30.6 g/dL (30.0-36.0); Mean Corpuscular Hemoglobin 27.1 pg (28.0-34.0); Mean Corpuscular Volume 88.8 fl (81-99); Mean Platelet Volume 9.4 fL (7.4-10.4); Monocytes # 0.8 10^3/uL (0.2-0.9); Monocytes % 5.7 %; Neutrophils # 10.92 10^3/uL (1.8-7.7); Neutrophils % 82.5 %; Nucleated Red Blood Cells % 0 %; Platelet Count 452 10^3/cmm (130-400); Red Blood Count 3.39 10^6/uL (4.1-5.3); Red Cell Distribution Width 14.6 % (12.1-15.1); White Blood Count 13.2 10^3/uL (4.0-10.0)
--- NOTE | 2022-07-23 20:01 | PM.PN ---
Subjective Subjective: The patient is seen today with her son who is from [place] of state. Her other son has the flu and is unable to visit. Patient is awaiting return to [place] where she resided prior to this fall. Her Arshad is now out. She appears comfortable. Medications: Reviewed: Yes Vitals/I&O/Wt Last Vital Signs Temp 98.1 F 07/23/22 15:09 Pulse 76 07/23/22 15:09 Resp 12 07/23/22 15:09 BP 134/64 07/23/22 15:09 Pulse Ox 97 07/23/22 15:09 O2 Del Method Room Air 07/23/22 15:09 O2 Flow Rate 6 07/22/22 15:13 07/23/22 07/23/22 07/23/22 06:59 14:59 22:59 Intake Total 1150 / 2860.75 210 / 210 687 / 897 Output Total 300 / 1900 400 / 400 Balance 850 / 960.75 -190 / -190 687 / 497 Physical Exam Const: COMMON NORMALS: no acute distress, average body habitus and alert GENERAL APPEARANCE: cooperative and comfortable ORIENTATION/CONSCIOUSNESS: Yes awake HENMT: COMMON NORMALS: normocephalic and atraumatic HEAD & SCALP: normocephalic and atraumatic Eye: GENERAL EYE: appearance normal, both eyes and all related structures Chest: COMMONS NORMALS: normal inspection of the chest Resp: COMMON NORMALS: normal respiratory effort EFFORT & INSPECTION: Yes able to speak in complete sentences and Yes symmetric chest movement Extremity: LEFT LOWER EXTREMITY: Yes hip joint (Dressing is dry and intact.) Left hip: Yes inspection (No swelling or significant ecchymosis.), Yes palpation (Minimal tenderness.), Yes ROM (Not evaluated.) and Yes neurovascular exam (Intact distally with no evidence of DVT) Neuro: SENSORIUM/ORIENTATION: Yes alert Psych: APPEARANCE: Yes grossly normal Skin: COMMON NORMALS: no rashes or lesions noted GENERAL SKIN EXAM: no rashes or lesions noted Urinary Catheter Management: Arshad: Cath Placed During This Visit: yes, but has since been removed by the nurse Reason for Continuing Indwelling Catheter: Perioperative Use in Selected Surgeries Urinary Catheter Date of Insertion: 07/21/22 Urinary Catheter Time of Insertion: 13:45 Date Urinary Catheter Removed: 07/23/22 Time Urinary Catheter Discontinued: 14:00 Data 07/23/22 18:44 07/23/22 05:41 Micro: Microbiology 07/21/22 14:34 Urine Culture - Preliminary Urine,Clean Catch 07/21/22 15:10 Blood Culture - Preliminary Blood NEGATIVE TO DATE A&P Assessment and plan (1) Closed subcapital fracture of left femur: The patient is seen following left bipolar hip arthroplasty. In the past couple of months, she also had a right bipolar hemiarthroplasty. She is awaiting to return to her normal facility following these injuries. She is working with physical therapy. The patient is seen with her son who agrees that she is to return to [facility]. I am in agreement with her discharge. She is to follow posterior hip precautions and is to be weightbearing as tolerated. Attestations Medical Necessity Statement*: Postoperative care and pain management Coding Level of Care Code Acute Code for [facility] Diagnoses Closed subcapital fracture of left femur S72.012A
[2022-07-23] MEDS: quetiapine 25 mg Tablet PO (20:56)
[2022-07-23] MEDS: acetaminophen 500 mg Tablet 1000 MG PO (20:57)
[2022-07-24] VITALS (9 sets, daily range): BP systolic 107–148; BP diastolic 60–75; PULSE 72–79; RESP 15–18; TEMP 36.4–36.7; O2SAT 90–98
--- NOTE | 2022-07-24 00:59 | PC.NURSE ---
Patient has not voided since tolentino catheter removed. Performed bladder scan with 371ml being the largest amount scanned.
[2022-07-24 03:27] LABS: Basophils % 0.3 %; Eosinophils # 0.2 10^3/uL (0.0-0.8); Eosinophils % 1.5 %; Hematocrit 27.8 % (37.0-47.0); Hemoglobin 8.7 g/dL (11.5-15.3); Lymphocytes # 1.6 10^3/uL (0.8-4.8); Lymphocytes % 14.1 %; Mean Corpuscular HGB Conc 31.3 g/dL (30.0-36.0); Mean Corpuscular Volume 86.3 fl (81-99); Mean Platelet Volume 9.4 fL (7.4-10.4); Monocytes # 0.8 10^3/uL (0.2-0.9); Monocytes % 6.6 %; Neutrophils # 8.89 10^3/uL (1.8-7.7); Neutrophils % 76.5 %; Nucleated Red Blood Cells % 0 %; Platelet Count 461 10^3/cmm (130-400); Red Blood Count 3.22 10^6/uL (4.1-5.3); Red Cell Distribution Width 14.5 % (12.1-15.1); White Blood Count 11.6 10^3/uL (4.0-10.0)
[2022-07-24] MEDS: acetaminophen 500 mg Tablet 1000 MG PO ×3 (03:29→20:36)
[2022-07-24] MEDS: oxyCODONE 5 mg IR Tab/Cap PO ×3 (03:30→16:31)
[2022-07-24] MEDS: sodium chloride 0.9% 1,000 ML 75 ML IV (03:47)
[2022-07-24 03:49] LABS: Blood Urea Nitrogen 7 mg/dL (8-23); Calcium 8.4 mg/dL (8.5-10.5); Carbon Dioxide 20 mmol/L (22-29); Chloride 101 mmol/L (98-107); Glucose 105 mg/dL (65-115); Osmolality Calculated 270 mOsm/kg (285-295); Sodium 131 mmol/L (136-145)
[2022-07-24 03:52] LABS: Creatinine Clr Calc Pharmacy 43.3747
[2022-07-24 03:53] LABS: Anion Gap 12.9 (5-19)
[2022-07-24 03:55] LABS: Potassium 2.9 mmol/L (3.5-5.1)
--- NOTE | 2022-07-24 04:24 | PC.NURSE ---
Informed Dr Saleem of critical potassium of 2.9. Waiting orders at this time.
--- NOTE | 2022-07-24 06:23 | PC.NURSE ---
Performed bladder scan on patient which showed 370ml of urine. Assisted patient up to [facility] with 2 person assist. Patient tolerated well. Patient voided ~125ml of clear, yellow urine. No foul odor detected.
[2022-07-24] MEDS: aspirin 325 mg EC Tablet PO (08:15)
[2022-07-24] MEDS: iron polysaccharide complex 150 mg Capsule PO ×2 (08:15→18:11)
[2022-07-24] MEDS: calcium carbonate 500 mg Chew Tablet 1000 MG PO ×2 (08:15→18:11)
[2022-07-24] MEDS: sennosides-docusate Tablet 2 TAB PO ×2 (08:15→18:10)
[2022-07-24] MEDS: cholecalciferol (vitamin D3) 1,000 unit Tablet 1000 UNIT PO (08:15)
[2022-07-24] MEDS: sucralfate 1 gm Tablet PO ×2 (08:15→20:36)
[2022-07-24] MEDS: pantoprazole 40 mg SDV IVP (08:16)
[2022-07-24] MEDS: mupirocin oint 22 gm 1 APPLIC NASAL ×2 (09:57→18:28)
[2022-07-24] MEDS: multivitamin therapeutic Tablet 1 TAB PO (09:57)
[2022-07-24] MEDS: iron sucrose 200 MG in sodium chloride 0.9% (100 ml) 100 ML 220 MG IV (10:16)
[2022-07-24] MEDS: lidocaine 1% 5 ML in potassium chloride premix 100 ML 26.25 ML IV (12:14)
[2022-07-24] MEDS: metoprolol succinate ER (24 HR) 50 mg Tablet PO (12:26)
--- NOTE | 2022-07-24 15:36 | PM.PN ---
Subjective Subjective: patient was seen this morning, family at bedside, no complaints Vitals/I&O/Wt Last Vital Signs Temp 97.5 F L 07/24/22 11:53 Pulse 79 07/24/22 11:53 Resp 17 07/24/22 11:53 BP 107/70 07/24/22 11:53 Pulse Ox 98 07/24/22 11:53 O2 Del Method Room Air 07/24/22 11:53 O2 Flow Rate 6 07/23/22 22:55 07/24/22 07/24/22 07/24/22 06:59 14:59 22:59 Intake Total 2016 590 / 590 Output Total 125 / 525 Balance 495 / 1492 590 / 590 Physical Exam Const: COMMON NORMALS: no acute distress Resp: COMMON NORMALS: normal respiratory effort, No retractions, No use of accessory muscles and clear to auscultation bilaterally AUSCULTATION: clear to auscultation bilaterally Cardio: COMMON NORMALS: regular rate, regular rhythm, S1 normal heart sound present and S2 normal heart sound present RATE: regular rate RHYTHM: regular rhythm HEART SOUNDS: S1 normal heart sound present and S2 normal heart sound present GI: COMMON NORMALS: Normal to inspection, nondistended, normoactive bowel sounds present and non-tender Extremity: COMMON NORMALS: no pedal edema Psych: COMMON NORMALS: mental status grossly normal Urinary Catheter Management: Arshad: Cath Placed During This Visit: yes, but has since been removed by the nurse Reason for Continuing Indwelling Catheter: Perioperative Use in Selected Surgeries Urinary Catheter Date of Insertion: 07/21/22 Urinary Catheter Time of Insertion: 13:45 Date Urinary Catheter Removed: 07/23/22 Time Urinary Catheter Discontinued: 14:00 Data 07/24/22 02:09 07/24/22 02:09 Micro: Microbiology 07/21/22 14:34 Urine Culture - Final Urine,Clean Catch A&P Assessment and plan (1) Postoperative anemia: (2) UTI (urinary tract infection): (3) GERD (gastroesophageal reflux disease): (4) Fall: (5) Dementia: (6) Iron deficiency anemia: (7) Acute encephalopathy: Plan Left hip fracture -Status post right hip bipolar hemiarthroplasty by Dr. Smith -Pain control morphine -Lovenox for DVT prophylaxis -DNR/DNI Acute postoperative anemia, with chronic anemia -s/p 1 units prbc -repeat hgb this afternoon Iron deficiency anemia third dose of IV Venofer UTI, continue Rocephin follow urine cultures Acute encephalopathy, likely sec to underlying dementia, however UTI, anemia could be playing a role Dementia Spoke to nursing staff Spoke to ER provider Plan for today PT OT, continue antibiotic therapy, monitor hemoglobin in the afternoon Attestations Medical Necessity Statement*: patient requires hospitalization for hip fracture post op anemia Coding Level of Care Code Acute Code for [facility] Diagnoses Postoperative anemia D64.9 UTI (urinary tract infection) N39.0 GERD (gastroesophageal reflux disease) K21.9 Fall W19.XXXA Dementia F03.90 Iron deficiency anemia D50.9 Acute encephalopathy G93.40
[2022-07-24] MEDS: cefTRIAXone 1,000 MG in sodium chloride 0.9% (plus) 50 ML 100 MG IV (18:11)
[2022-07-24] MEDS: enoxaparin 40 mg/0.4 mL Syringe SUBCUT (18:12)
--- NOTE | 2022-07-24 18:27 | PM.PN ---
Subjective Subjective: Patient was seen early afternoon. Her [id number] was there, and plans are being made for her return to her normal residential facility. She is slightly more confused today. Medications: Reviewed: Yes Vitals/I&O/Wt Last Vital Signs Temp 98.0 F 07/24/22 16:00 Pulse 78 07/24/22 16:00 Resp 17 07/24/22 16:31 BP 130/69 07/24/22 16:00 Pulse Ox 96 07/24/22 16:00 O2 Del Method Room Air 07/24/22 16:00 O2 Flow Rate 6 07/23/22 22:55 07/24/22 07/24/22 07/24/22 06:59 14:59 22:59 Intake Total / 2017 590 / 590 345 / 935 Output Total 125 / 525 400 / 400 Balance 495 / 1492 590 / 590 -55 / 535 Physical Exam Const: COMMON NORMALS: no acute distress, average body habitus and alert GENERAL APPEARANCE: cooperative and comfortable ORIENTATION/CONSCIOUSNESS: Yes awake HENMT: COMMON NORMALS: normocephalic and atraumatic HEAD & SCALP: normocephalic and atraumatic Eye: GENERAL EYE: appearance normal, both eyes and all related structures Chest: COMMONS NORMALS: normal inspection of the chest Resp: COMMON NORMALS: normal respiratory effort EFFORT & INSPECTION: Yes able to speak in complete sentences and Yes symmetric chest movement Extremity: LEFT LOWER EXTREMITY: Yes hip joint (No significant swelling or ecchymosis.) Left hip: Yes inspection (Dressing is dry and intact.) and Yes neurovascular exam (No evidence of DVT.) Neuro: SENSORIUM/ORIENTATION: Yes alert Psych: APPEARANCE: Yes grossly normal Skin: COMMON NORMALS: no rashes or lesions noted GENERAL SKIN EXAM: no rashes or lesions noted Urinary Catheter Management: Arshad: Cath Placed During This Visit: yes, but has since been removed by the nurse Reason for Continuing Indwelling Catheter: Perioperative Use in Selected Surgeries Urinary Catheter Date of Insertion: 07/21/22 Urinary Catheter Time of Insertion: 13:45 Date Urinary Catheter Removed: 07/23/22 Time Urinary Catheter Discontinued: 14:00 Data 07/24/22 02:09 07/24/22 02:09 Micro: Microbiology 07/21/22 14:34 Urine Culture - Final Urine,Clean Catch A&P Assessment and plan (1) Closed subcapital fracture of left femur: The patient is seen following left bipolar hip arthroplasty. In the past couple of months, she also had a right bipolar hemiarthroplasty. She is awaiting to return to her normal facility following these injuries. She is working with physical therapy. The patient is seen with her [id number] who agrees that she is to return to [facility]. I am in agreement with her discharge. She is to follow posterior hip precautions and is to be weightbearing as tolerated. We are waiting for medical optimization for transfer. Attestations Medical Necessity Statement*: Awaiting transfer to her care facility. Coding Level of Care Code Acute Code for [facility] Diagnoses Closed subcapital fracture of left femur S72.012A
[2022-07-24 18:37] LABS: Hematocrit 30.7 % (37.0-47.0); Hemoglobin 9.4 g/dL (11.5-15.3)
[2022-07-24] MEDS: chlorhexidine gluconate 0.12% Btl 473 mL 30 ML MUCOUS MEM (20:36)
[2022-07-24] MEDS: quetiapine 25 mg Tablet PO (20:36)
[2022-07-25 03:35] LABS: Basophils % 0.4 %; Eosinophils # 0.4 10^3/uL (0.0-0.8); Eosinophils % 3.6 %; Hematocrit 27.5 % (37.0-47.0); Hemoglobin 8.4 g/dL (11.5-15.3); Lymphocytes # 1.5 10^3/uL (0.8-4.8); Mean Corpuscular HGB Conc 30.5 g/dL (30.0-36.0); Mean Corpuscular Hemoglobin 27.2 pg (28.0-34.0); Mean Platelet Volume 9.4 fL (7.4-10.4); Monocytes # 0.8 10^3/uL (0.2-0.9); Monocytes % 7.6 %; Neutrophils # 7.92 10^3/uL (1.8-7.7); Neutrophils % 72.7 %; Nucleated Red Blood Cells % 0.3 %; Platelet Count 461 10^3/cmm (130-400); Red Blood Count 3.09 10^6/uL (4.1-5.3); Red Cell Distribution Width 15.1 % (12.1-15.1); White Blood Count 10.9 10^3/uL (4.0-10.0)
[2022-07-25] MEDS: acetaminophen 500 mg Tablet 1000 MG PO ×2 (03:50→12:25)
[2022-07-25 03:55] LABS: Anion Gap 11.9 (5-19); Blood Urea Nitrogen 6 mg/dL (8-23); Calcium 8.2 mg/dL (8.5-10.5); Carbon Dioxide 19 mmol/L (22-29); Chloride 106 mmol/L (98-107); Glucose 99 mg/dL (65-115); Osmolality Calculated 276 mOsm/kg (285-295); Sodium 134 mmol/L (136-145)
[2022-07-25 04:00] VITALS: BP 132/53; PULSE 80; RESP 17; TEMP 36.3; O2SAT 95
[2022-07-25 04:03] LABS: Creatinine Clr Calc Pharmacy 43.3747
[2022-07-25 04:04] LABS: Potassium 2.9 mmol/L (3.5-5.1)
--- NOTE | 2022-07-25 04:50 | PC.NURSE ---
shift summary Patient has removed IV, refuses to allow nurse to put in another, she slaps and yells at nurse when nurse attempts IV, Patient has been awake most of the night setting off bed alarm, throwing blankets and gown in the floor, patient was incontinent of urine tonight. Dr. Saleem notified that patient does not have IV access.
[2022-07-25] MEDS: lidocaine 1% 5 ML in potassium chloride premix 100 ML 26.25 ML IV (07:56)
[2022-07-25 08:00] VITALS: BP 137/52; PULSE 68; RESP 17; TEMP 36.6; O2SAT 96
[2022-07-25] MEDS: sennosides-docusate Tablet 2 TAB PO (09:28)
[2022-07-25] MEDS: multivitamin therapeutic Tablet 1 TAB PO (09:28)
[2022-07-25] MEDS: sucralfate 1 gm Tablet PO (09:29)
[2022-07-25] MEDS: calcium carbonate 500 mg Chew Tablet 1000 MG PO (09:29)
[2022-07-25] MEDS: cholecalciferol (vitamin D3) 1,000 unit Tablet 1000 UNIT PO (09:29)
[2022-07-25] MEDS: iron polysaccharide complex 150 mg Capsule PO (09:29)
[2022-07-25] MEDS: aspirin 325 mg EC Tablet PO (09:29)
[2022-07-25] MEDS: pantoprazole 40 mg SDV IVP (09:30)
[2022-07-25] MEDS: mupirocin oint 22 gm 1 APPLIC NASAL (09:30)
[2022-07-25] MEDS: chlorhexidine gluconate 0.12% Btl 473 mL 30 ML MUCOUS MEM (09:31)
--- NOTE | 2022-07-25 09:35 | PC.SOCIAL ---
Pg 2 IMM. Explained to pt's family, Pg 2 IMM. No questions voiced. Provided pt a copy. Initialed, dated, & timed a copy & placed in chart.
--- NOTE | 2022-07-25 09:49 | PM.DCS ---
Discharge Providers Date of Admission: 07/22/22 12:45 Date of Discharge: July 25, 2022 Attending Provider at Admission: Marvin Mayer MD Attending Provider at Discharge: Marvin Mayer MD Primary Care Provider: Fitz Fowler MD Diagnoses at Discharge Discharge Diagnosis (1) Closed subcapital fracture of left femur: Status: Acute Reason for Visit Reason for Visit: FALL/ HIP PAIN Hospital Course Hospital Course Cristina Whittington is a 86 year old female with a past medical history of dementia, history of UTIs, history of aspiration pneumonia, recent history of fall, chronic Arshad, status post right hip hemiarthroplasty, who presents [facility] as she was doing therapy, she was unable to bear weight in the left leg.? Currently patient is alert to person, not to place, not to time, does not follow commands, family members at bedside, they tell me that she cannot carry out conversations, she does recognize family members, is alert oriented x1, since her right hip surgery she has been ambulating with a walker, however today she had difficulty bearing weight in the left leg.? She has been having a UTI for which she is on ciprofloxacin.? I spoke to [place], they told me that she potentially could have had a fall on the fourth, but since then she has been ambulating.? She is not on any blood thinners.? She is on aspiration precautions This is a 86-year-old female who was admitted to [facility] for a left hip fracture, status post right hip bipolar hemiarthroplasty with Dr. Gautam, discharged to [facility], oxycodone for pain control, PT OT, on aspirin 325 mg p.o. daily for DVT prophylaxis, follow-up with Dr. Gautam Patient hospitalization was complicated with acute postoperative anemia, requiring 1 unit PRBC, hemoglobin discharge 8.4 Patient had iron deficiency anemia during hospitalization, receiving 3 doses of IV Venofer, discharged on p.o. iron, follow-up with primary care for recheck iron levels in 6 weeks UTI, received the Rocephin, so far blood cultures unremarkable, urine cultures unremarkable Physical Exam Const: COMMON NORMALS: no acute distress and patient oriented x3 Resp: COMMON NORMALS: normal respiratory effort, No retractions, No use of accessory muscles and clear to auscultation bilaterally AUSCULTATION: clear to auscultation bilaterally Cardio: COMMON NORMALS: regular rate, regular rhythm, S1 normal heart sound present and S2 normal heart sound present RATE: regular rate RHYTHM: regular rhythm HEART SOUNDS: S1 normal heart sound present and S2 normal heart sound present GI: COMMON NORMALS: Normal to inspection, nondistended, normoactive bowel sounds present Extremity: COMMON NORMALS: no pedal edema Neuro: COMMON NORMALS: patient oriented x3 Psych: COMMON NORMALS: mental status grossly normal Urinary Catheter Management: Arshad: Cath Placed During This Visit: yes, but has since been removed by the nurse Reason for Continuing Indwelling Catheter: Perioperative Use in Selected Surgeries Urinary Catheter Date of Insertion: 07/21/22 Urinary Catheter Time of Insertion: 13:45 Date Urinary Catheter Removed: 07/23/22 Time Urinary Catheter Discontinued: 14:00 Discharge Data Studies Completed and Pending Completed Studies During Hospitalization Category Date Time Status CT head wo con* [id number] Stat Cat Scan 07/21/22 14:04 Completed XR chest 1V portable [id number] Stat Exams 07/21/22 13:40 Completed XR hip LT 2-3V wo/w pel* [id number] Stat Exams 07/21/22 13:10 Completed XR pelvis 1-2V* [id number] Routine Exams 07/22/22 15:14 Completed Pending at discharge Category Date Time Status Basic Metabolic Panel AM LABS Lab 07/26/22 04:00 Ordered Blood Culture Stat Lab 07/21/22 15:10 Results Complete Blood Count w/Auto AM LABS Lab 07/26/22 04:00 Ordered Occult Blood Stool [Immunochemical Fecal OCB] Routine Lab 07/22/22 08:14 Uncollected Radiology Impressions Hip/Pelvis X-Ray 07/21/22 13:10 IMPRESSION: 1. Acute subcapital fracture of the left hip with proximal displacement of the femoral shaft Chest X-Ray 07/21/22 13:40 IMPRESSION: Unremarkable frontal portable chest x-ray. Head CT 07/21/22 14:04 IMPRESSION: No significant changes since June 03, 2022 1. No evidence of intracranial hemorrhage or mass effect. 2. Moderate to advanced small vessel changes with moderate parenchymal volume loss. Vascular calcification. 3. No acute intracranial findings. Pelvis X-Ray 07/22/22 15:14 IMPRESSION: Bilateral total hip arthroplasties. The left hip arthroplasty is recent with soft tissue changes as noted. Laboratory Results WBC 10.9 10^3/uL (4.0-10.0) H 07/25/22 02:47 RBC 3.09 10^6/uL (4.1-5.3) L 07/25/22 02:47 Hgb 8.4 g/dL (11.5-15.3) L 07/25/22 02:47 Hct 27.5 % (37.0-47.0) L 07/25/22 02:47 MCV 89.0 fl (81-99) 07/25/22 02:47 MCH 27.2 pg (28.0-34.0) L 07/25/22 02:47 MCHC 30.5 g/dL (30.0-36.0) 07/25/22 02:47 RDW 15.1 % (12.1-15.1) 07/25/22 02:47 Plt Count 461 10^3/cmm (130-400) H 07/25/22 02:47 MPV 9.4 fL (7.4-10.4) 07/25/22 02:47 Neut % (Auto) 72.7 % 07/25/22 02:47 Lymph % (Auto) 14.0 % 07/25/22 02:47 Mitchell % (Auto) 7.6 % 07/25/22 02:47 Eos % (Auto) 3.6 % 07/25/22 02:47 Baso % (Auto) 0.4 % 07/25/22 02:47 Neut # (Auto) 7.92 10^3/uL (1.8-7.7) H 07/25/22 02:47 Lymph # (Auto) 1.5 10^3/uL (0.8-4.8) 07/25/22 02:47 Mitchell # (Auto) 0.8 10^3/uL (0.2-0.9) 07/25/22 02:47 Eos # (Auto) 0.4 10^3/uL (0.0-0.8) 07/25/22 02:47 Baso # (Auto) 0.0 10^3/uL (0.0-0.1) 07/25/22 02:47 Nucleated RBC % (auto) 0.3 % 07/25/22 02:47 Nucleated RBCs # 0.0 /100WBC 07/25/22 02:47 Sodium 134 mmol/L (136-145) L 07/25/22 02:47 Potassium 2.9 mmol/L (3.5-5.1) L 07/25/22 02:47 Chloride 106 mmol/L (98-107) 07/25/22 02:47 Carbon Dioxide 19 mmol/L (22-29) L 07/25/22 02:47 Anion Gap 11.9 (5-19) 07/25/22 02:47 BUN 6 mg/dL (8-23) L 07/25/22 02:47 Creatinine 0.3 mg/dL (0.5-0.9) L 07/25/22 02:47 GFR Calculation Not Reportable 07/25/22 02:47 Glucose 99 mg/dL (65-115) 07/25/22 02:47 Calculated Osmolality 276 mOsm/kg (285-295) L 07/25/22 02:47 Calcium 8.2 mg/dL (8.5-10.5) L 07/25/22 02:47 Phosphorus 3.0 mg/dL (2.5-4.5) 07/21/22 14:21 Magnesium 2.1 mg/dL (1.7-2.3) 07/21/22 14:21 Iron 14 ug/dL (37-145) L 07/22/22 05:57 Ferritin 127 ng/mL (15-150) 07/22/22 05:57 Total Bilirubin 0.4 mg/dL (0.15-1.2) 07/21/22 14:21 AST 15 U/L (0-32) 07/21/22 14:21 ALT 10 U/L (0-33) 07/21/22 14:21 Alkaline Phosphatase 130 U/L (35-105) H 07/21/22 14:21 Troponin T Baseline 30 ng/L (0-10) H 07/21/22 14:21 Troponin T 120 Minute 25.02 ng/L (0-10) H 07/21/22 18:52 Delta Troponin T -4.98 ABS# (0-10) L 07/21/22 18:52 Troponin T Hi Sens 6Hr 22.94 ng/L (0-10) H 07/21/22 21:51 Troponin T Hi Sens 6Hr Delta -7.06 ng/L (0-12) L 07/21/22 21:51 C-Reactive Protein 41.1 mg/L (0.0-4.9) H 07/21/22 14:21 NT-Pro-B Natriuret Pep 809 pg/mL (0-450) H 07/21/22 14:21 Total Protein 6.9 g/dL (6.6-8.7) 07/21/22 14:21 Albumin 3.5 g/dL (3.5-5.2) 07/21/22 14:21 Globulin 3.4 g/dL (1.3-4.6) 07/21/22 14:21 Vitamin B12 298 pg/mL (232-1245) 07/22/22 05:57 Folate 9.2 ng/mL (4.8-37.3) 07/22/22 09:07 Procalcitonin 0.08 ng/mL (0-0.5) 07/21/22 14:21 TSH 1.40 uIU/mL (0.27-4.20) 07/21/22 14:21 Urine Color Yellow (Yellow) 07/21/22 14:34 Urine Appearance Cloudy (CLEAR) A 07/21/22 14:34 Urine pH 6 (5-7) 07/21/22 14:34 Ur Specific [place] 1.020 (1.005-1.030) 07/21/22 14:34 Urine Protein Neg (Negative) 07/21/22 14:34 Urine Glucose (UA) Norm (Normal) 07/21/22 14:34 Urine Ketones 1+ (Negative) H 07/21/22 14:34 Urine Blood 2+ (Negative) H 07/21/22 14:34 Urine Nitrate Negative (Negative) 07/21/22 14:34 Urine Bilirubin Neg (Negative) 07/21/22 14:34 Urine Urobilinogen Neg mg/dL (Negative) 07/21/22 14:34 Ur Leukocyte Esterase 2+ (Negative) H 07/21/22 14:34 Urine RBC 15-25 /hpf (0-2) H 07/21/22 14:34 Urine WBC >100 /hpf (0-5) H 07/21/22 14:34 Ur Squamous Epith Cells 0-4 /hpf (0-5) H 07/21/22 14:34 Amorphous Sediment Not Reportable 07/21/22 14:34 Urine Bacteria 2+ /hpf (NONE) H 07/21/22 14:34 Urine Mucus Trace /hpf 07/21/22 14:34 Blood Type O Positive 07/22/22 13:17 Rho(D) Type Positive 07/22/22 13:17 Antibody Screen Negative 07/22/22 13:17 Crossmatch See Detail 07/22/22 13:17 Vitals Last Vital Signs Temp 97.8 F 07/25/22 08:00 Pulse 68 07/25/22 08:00 Resp 17 07/25/22 08:00 BP 137/52 07/25/22 08:00 Pulse Ox 96 07/25/22 08:00 O2 Del Method Room Air 07/25/22 08:00 O2 Flow Rate 6 07/23/22 22:55 Discharge Plan Discharge Patient Disposition: Home Health Service Condition: Stable Prescriptions: New oxycodone 5 mg Tablet 5 mg PO Q6H PRN (Reason: Moderate Pain) 5 Days Qty: 25 0RF ferrous sulfate 325 mg (65 mg iron) tablet 325 mg PO BID 30 Days Qty: 60 0RF Continued famotidine [Pepcid] 20 mg tablet 20 mg PO DAILY@12 fluticasone propionate [Flonase Allergy Relief] 50 mcg/actuation spray,suspension 1 spray INTRANASAL BID PRN (Reason: Allergy Symptoms) (DME) manual wheelchair See Rx Instructions .Route .MEDSUPPLY Qty: 1 0RF Rx Instructions: Please issue manual wheelchair. calcium carbonate [Calcium 600] 600 mg calcium (1,500 mg) Tablet 600 mg PO DAILY@12 docusate sodium [Charlton' Liqui-Gels] 100 mg Capsule 100 mg PO DAILY PRN (Reason: Constipation) acetaminophen [Tylenol] 325 mg Tablet 650 mg PO Q6H PRN (Reason: Pain) cetirizine [Zyrtec] 10 mg Tablet 10 mg PO DAILY PRN (Reason: Allergy Symptoms) quetiapine 25 mg Tablet 25 mg PO BEDTIME Qty: 30 0RF sennosides-docusate sodium [Stool Softener-Laxative] 8.6-50 mg Tablet 1 tab PO DAILY Qty: 30 0RF haloperidol 0.5 mg tablet 0.5 mg PO BID PRN (Reason: Anxiety) Qty: 30 0RF metoprolol succinate 50 mg tablet extended release 24 hr 50 mg PO DAILY@12 Qty: 30 0RF aspirin 325 mg tablet,delayed release (DR/EC) 325 mg PO DAILY Qty: 30 0RF Discontinued ciprofloxacin HCl 500 mg tablet 500 mg PO BID 10 Days Qty: 20 0RF tramadol 50 mg Tablet 25 mg PO Q6H PRN (Reason: Pain) Discharge Orders: Discharge Order (Routine); Ordered 07/25/22 Ordered By: Marvin Mayer Referrals: Mary Gautam MD [Physician] - 2 weeks (Message sent to clinic.) Fitz Fowler MD [Primary Care Provider] - 07/26/22 2:10 pm Discharge Activity: Limit activity as instructed and As per PT/OT instructions Patient Instructions: Opioid Safety Activity Restrictions/Additional Instructions: Posterior hip precautions. Maintain current dressing until it comes off on its own or 2 weeks have passed at which time it may be removed. The patient may be weightbearing as tolerated and should have physical therapy for gait training, ambulation, and strengthening. -Please have primary care provider recheck hemoglobin next week -Recheck iron studies in 6 weeks Discharge Attestations Time Spent in Discharge Care*: greater than 30 min Quality Metrics Clinical Quality Measures [ No reported AMI, CVA or VTE this stay] Coding Level of Care Code 21147 Total time (in minutes) for Discharge: 40 Diagnoses Closed subcapital fracture of left femur S72.012A
[2022-07-25 11:35] VITALS: BP 142/71; PULSE 74; RESP 17; TEMP 36.6; O2SAT 94
[2022-07-25] MEDS: metoprolol succinate ER (24 HR) 50 mg Tablet PO (12:26)
[2022-07-25 14:01] VITALS: BP 142/71; PULSE 74; RESP 17; TEMP 36.6; O2SAT 94
== END 2022-07-25 13:45 | disposition home or self-care (01) | DRG 522 ==
LOC: ER 15:31 → MEDSURG 16:12
PROVIDERS: Specialist; Admitting Provider Family Medicine; Emergency Provider Emergency Medicine; PCP Family Medicine; Visit Provider Family Medicine
PROC: 0SRS0JZ Replacement of Left Hip Joint, Femoral Surface with Synthetic Substitute, Open Approach (ICD-10-PCS; CPT 27125; principal; 2022-07-22 13:00)
DX: S72.012A Unspecified intracapsular fracture of left femur, initial encounter for closed fracture (principal); N39.0 Urinary tract infection, site not specified; D62 Acute posthemorrhagic anemia; G93.49 Other encephalopathy; W19.XXXA Unspecified fall, initial encounter; F03.90 Unspecified dementia, unspecified severity, without behavioral disturbance, psychotic disturbance, mood disturbance, and anxiety; Z87.440 Personal history of urinary (tract) infections; Z87.01 Personal history of pneumonia (recurrent); Z96.641 Presence of right artificial hip joint; D50.9 Iron deficiency anemia, unspecified; J45.909 Unspecified asthma, uncomplicated; Z86.718 Personal history of other venous thrombosis and embolism; K21.9 Gastro-esophageal reflux disease without esophagitis; Z66 Do not resuscitate; Z88.2 Allergy status to sulfonamides
CPT/HCPCS: 36415; 36430; 51702; 70450; 71045; 72170; 73502; 80048; 80053; 81001; 82607; 82728; 82746; 83540; 83735; 83880; 84100; 84145; 84443; 84484; 85014; 85018; 85025; 86140; 86850; 86900; 86920; 87040; 87086; 93005; 96372; 97110; 97162; 97167; 97530; 99285; C1776; C9113; G0378; J0131; J0690; J0696; J1650; J1756; J2270; J2370; J2704; J3010; J3370; J3480; J7030; P9016; P9045

== ENCOUNTER 2022-08-09 12:09 | Emergency (ER) | payer MEDICARE, OTHER, SELFPAY ==
[2022-08-09 12:17] VITALS: BP 154/77; PULSE 83; TEMP 37.3; O2SAT 98; BMI 21.6
--- NOTE | 2022-08-09 12:39 | XRR_ITS ---
PROCEDURE INFORMATION: Exam: XR Right Hip Exam date and time: 08/09/2022 12:50 PM Age: 86 years old Clinical indication: Injury or trauma; Fall; Blunt trauma (contusions or hematomas); Right; Hip; Prior surgery; Additional info: Possible fall, deformity TECHNIQUE: Imaging protocol: Radiologic exam of the right hip. Views: 1 view hip with pelvis when performed. COMPARISON: CR XR hip RT 2-3V wo/w pel* [id number] 06/24/2022 9:49 AM FINDINGS: Bones/joints: There is a bipolar right hip prosthesis that is unchanged and unremarkable in position and alignment. Hardware is intact. There is no periprosthetic fracture. Bone metal interface is unremarkable. Soft tissues: Unremarkable. XR/XR hip RT 2-3V wo/w pel* [id number] IMPRESSION: Stable appearance of right total hip replacement
--- NOTE | 2022-08-09 12:40 | W.ED.FALL ---
HPI - Fall General: Chief Complaint: Fall Stated Complaint: FALL/ DISLOCATED HIP Time Seen by Provider: 08/09/22 12:35 History of Present Illness: Patient was brought in by EMS from [facility] with complaint of possible unwitnessed fall last night. EMS states that when patient was taken to physical therapy today they noticed a deformity in her right hip. EMS was called and they brought the patient here to the ER. Patient is not complaining of any pain at this time. But there appears to be deformity in the right hip region. Patient has had both hips replaced within the last 5 months. MD complaint: fall Onset (ago): unknown (Possibly last night) Fall from: wheelchair Fall witnessed: no Place fall occurred: correction/SNF Loss of consciousness: Unsure Location of injury: other (Right hip) Review of Systems General: Reports: ROS unobtainable due to medical condition (Patient's dementia) and ROS unobtainable due to mental status (Patient's dementia) [facility] ED PFSH: Medical History Asthma Closed subcapital fracture of neck of right femur Constipation Cystocele, midline Dementia DVT (deep venous thrombosis) Fall GERD (gastroesophageal reflux disease) IBS (irritable bowel syndrome) Osteoporosis Pneumonia Rectocele Rhabdomyolysis Shortness of Breath SOB (shortness of breath) Tachycardia Urinary retention Surgical History S/P hernia repair S/P left rotator cuff repair Family History Father CAD (coronary artery disease) Atrial fibrillation Myocardial infarction Mother CAD (coronary artery disease) Diabetes Myocardial infarction Family/Other Cancer Social History Smoking and tobacco status: never smoked Alcohol intake: never Substance/Drug Use: never Lives independently: Yes Marital status: / service: No Current occupational status: retired Current gender identity: Male and Female Ely/Yarsani: Holiness Agree to transfusion: Yes Physical Exam Const: COMMON NORMALS: no acute distress, average body habitus, patient oriented x3, healthy appearing, alert and well nourished HENMT: COMMON NORMALS: normocephalic, atraumatic, hearing grossly normal bilaterally, external ears normal and moist oral mucous membranes HEAD & SCALP: normocephalic and atraumatic EXTERNAL EAR: Yes external ears normal Eye: COMMON NORMALS: Equal, round and reactive pupils present, EOMs intact bilaterally, conjunctivae normal and no scleral icterus CONJUNCTIVA: Yes conjunctivae normal PUPIL: Yes Equal, round and reactive pupils present Neck/C-Spine: COMMON NORMALS: full ROM, no lymphadenopathy, supple, no meningeal signs, no JVD and Thyroid normal THYROID: Thyroid normal Chest: COMMONS NORMALS: normal inspection of the chest and normal palpation of entire chest wall Resp: COMMON NORMALS: normal respiratory effort, No retractions, No use of accessory muscles and clear to auscultation bilaterally AUSCULTATION: clear to auscultation bilaterally Cardio: COMMON NORMALS: no JVD, regular rate, regular rhythm, S1 normal heart sound present and S2 normal heart sound present RATE: regular rate RHYTHM: regular rhythm HEART SOUNDS: S1 normal heart sound present and S2 normal heart sound present GI: COMMON NORMALS: Normal to inspection, nondistended, normoactive bowel sounds present, Soft to palpation, non-tender, No hepatosplenomegaly present and no masses PALPATION: Yes Soft to palpation and Yes No hepatosplenomegaly present Extremity: NARRATIVE EXTREMITY EXAM: More fullness in the right hip region. Could be consistent with anterior displacement. However patient has no pain with palpation of this region. It is definitely different than the left side though. Neuro: COMMON NORMALS: patient oriented x3 SENSORIUM/ORIENTATION: Yes alert MENINGEAL SIGNS: Yes no meningeal signs Course Vital Signs: Vital signs: Vital Signs Temperature 99.2 F 08/09/22 12:17 Pulse Rate 83 08/09/22 12:17 Blood Pressure 154/77 08/09/22 12:17 Pulse Oximetry 98 08/09/22 12:17 Oxygen Delivery Me thod Room Air 08/09/22 12:17 MDM - Fall Medical Decision Making Patient presents to the ER with complaints of a probable unwitnessed fall out of her wheelchair at the correction. Patient appears to have a right deformed hip region. However this area is not tender to palpate. X-rays were taken of this area which showed a in place healing hip replacement. Patient will be discharged back to the correction and will go back by ambulance. Differential Diagnosis Unlikely compression fracture, concussion with loss of consciousness or concussion without loss of consciousness Medical Records I reviewed the patient's medical records. Lab Data I reviewed the patient's lab results. Radiology Impressions Hip/Pelvis X-Ray 08/09/22 12:39 IMPRESSION: Stable appearance of right total hip replacement Discharge Plan Discharge Patient Disposition: Home Clinical Impression: Fall Qualifiers: Encounter type: initial encounter Qualified Code(s): W19.XXXA - Unspecified fall, initial encounter Condition: Stable Prescriptions: No Action famotidine [Pepcid] 20 mg tablet 20 mg PO DAILY@12 fluticasone propionate [Flonase Allergy Relief] 50 mcg/actuation spray,suspension 1 spray INTRANASAL BID PRN (Reason: Allergy Symptoms) (DME) manual wheelchair See Rx Instructions .Route .MEDSUPPLY Qty: 1 0RF Rx Instructions: Please issue manual wheelchair. calcium carbonate [Calcium 600] 600 mg calcium (1,500 mg) Tablet 600 mg PO DAILY@12 docusate sodium [Charlton' Liqui-Gels] 100 mg Capsule 100 mg PO DAILY PRN (Reason: Constipation) acetaminophen [Tylenol] 325 mg Tablet 650 mg PO Q6H PRN (Reason: Pain) cetirizine [Zyrtec] 10 mg Tablet 10 mg PO DAILY PRN (Reason: Allergy Symptoms) quetiapine 25 mg Tablet 25 mg PO BEDTIME Qty: 30 0RF sennosides-docusate sodium [Stool Softener-Laxative] 8.6-50 mg Tablet 1 tab PO DAILY Qty: 30 0RF haloperidol 0.5 mg tablet 0.5 mg PO BID PRN (Reason: Anxiety) Qty: 30 0RF metoprolol succinate 50 mg tablet extended release 24 hr 50 mg PO DAILY@12 Qty: 30 0RF aspirin 325 mg tablet,delayed release (DR/EC) 325 mg PO DAILY Qty: 30 0RF ferrous sulfate 325 mg (65 mg iron) tablet 325 mg PO BID 30 Days Qty: 60 0RF Discharge Orders: Discharge ED (Routine); Ordered 08/09/22 Ordered By: Slim Layton Referrals: Fitz Fowler MD [Primary Care Provider] - Patient Instructions: Fall Prevention Coding Level of Care Code [employer] for Darius Bowers
[2022-08-09 13:00] VITALS: BP 127/71; PULSE 76; RESP 18; O2SAT 97
[2022-08-09 13:30] VITALS: BP 134/76; PULSE 75; RESP 18; O2SAT 100
[2022-08-09 14:00] VITALS: BP 132/64; PULSE 75; RESP 18; O2SAT 100
--- NOTE | 2022-08-09 14:52 | PC.NURSE ---
Pt family refused placement of wedge.
[2022-08-09 14:54] VITALS: BP 133/67
== END 2022-08-09 14:56 | disposition home or self-care (01) ==
PROVIDERS: Emergency Provider Emergency Medicine; PCP Family Medicine
DX: S79.911A Unspecified injury of right hip, initial encounter (principal); W05.0XXA Fall from non-moving wheelchair, initial encounter; Y92.129 Unspecified place in nursing home as the place of occurrence of the external cause; F03.90 Unspecified dementia, unspecified severity, without behavioral disturbance, psychotic disturbance, mood disturbance, and anxiety
CPT/HCPCS: 73502; 99283

== ENCOUNTER 2022-08-10 14:02 | Outpatient (CLI) | payer MEDICARE, OTHER, SELFPAY ==
[2022-08-10 14:30] LABS: Add Urine Microscopic? YES; Bilirubin Urine Neg (Negative); Blood Urine Neg (Negative); Glucose Urine UA Norm (Normal); Ketones Urine 1+ (Negative); Leukocyte Esterase Urine Negative (Negative); Nitrate Urine Negative (Negative); Protein Urine Neg (Negative); Urine Appearance Cloudy (CLEAR); Urine Color Yellow (Yellow); Urobilinogen Urine Norm (Negative); pH Urine 7 (5-7)
[2022-08-10 14:34] LABS: Bacteria Urine 1+ /hpf; RBC Urine 0-4 /hpf (0-2); Squamous Epithelial Cell Urine 0-4 /hpf (0-5)
[2022-08-10 14:35] LABS: Amorphous Sediment Urine 2+ /hpf; Calcium Oxalate Crystals Urine 0-4 /hpf; Mucus Urine TRACE /hpf
== END 2022-08-10 14:03 | disposition home or self-care (01) ==
PROVIDERS: PCP Family Medicine; Visit Provider Family Medicine
DX: N39.0 Urinary tract infection, site not specified (principal)
CPT/HCPCS: 81001; 87086

== ENCOUNTER → 2022-08-11 13:58 | Outpatient (BNVA) | payer MEDICARE, OTHER, SELFPAY | PROVIDERS: PCP Family Medicine; Visit Provider Nurse Practitioner Family | DX: Z98.890 Other specified postprocedural states (principal); Z96.642 Presence of left artificial hip joint | CPT/HCPCS: 73502; 99213 ==

== ENCOUNTER 2022-08-19 10:10 | Outpatient (CLI) | payer MEDICARE, OTHER, SELFPAY ==
[2022-08-19 10:48] LABS: Add Urine Microscopic? YES; Bilirubin Urine Neg (Negative); Blood Urine Neg (Negative); Glucose Urine UA Norm (Normal); Ketones Urine Negative (Negative); Leukocyte Esterase Urine Negative (Negative); Nitrate Urine Negative (Negative); Protein Urine Neg (Negative); Urine Appearance Cloudy (CLEAR); Urine Color Yellow (Yellow); Urobilinogen Urine Neg (Negative); pH Urine 6.5 (5-7)
[2022-08-19 11:07] LABS: Add Urine Culture? No; Amorphous Sediment Urine 3+ /hpf; Coarse Granular Casts Urine 0-4 /lpf; Squamous Epithelial Cell Urine 0-4 /hpf (0-5)
== END 2022-08-19 10:11 | disposition home or self-care (01) ==
PROVIDERS: PCP Family Medicine; Visit Provider Family Medicine
DX: N39.0 Urinary tract infection, site not specified (principal)
CPT/HCPCS: 81001; 87086

== ENCOUNTER 2022-09-09 13:05 | Outpatient (CLI) | payer MEDICARE, OTHER, SELFPAY ==
[2022-09-09 13:37] LABS: Basophils % 0.5 %; Eosinophils # 0.1 10^3/uL (0.0-0.8); Eosinophils % 0.9 %; Hematocrit 34.9 % (37.0-47.0); Hemoglobin 10.4 g/dL (11.5-15.3); Lymphocytes # 1.2 10^3/uL (0.8-4.8); Lymphocytes % 18.7 %; Mean Corpuscular HGB Conc 29.8 g/dL (30.0-36.0); Mean Corpuscular Hemoglobin 27.2 pg (28.0-34.0); Mean Corpuscular Volume 91.4 fl (81-99); Mean Platelet Volume 9.2 fL (7.4-10.4); Monocytes # 0.5 10^3/uL (0.2-0.9); Monocytes % 7.8 %; Neutrophils # 4.62 10^3/uL (1.8-7.7); Neutrophils % 71.8 %; Nucleated Red Blood Cells % 0 %; Platelet Count 479 10^3/cmm (130-400); Red Blood Count 3.82 10^6/uL (4.1-5.3); Red Cell Distribution Width 18.1 % (12.1-15.1); White Blood Count 6.4 10^3/uL (4.0-10.0)
[2022-09-09 13:58] LABS: Anion Gap 14.2 (5-19); Blood Urea Nitrogen 13 mg/dL (8-23); Carbon Dioxide 27 mmol/L (22-29); Chloride 101 mmol/L (98-107); Glucose 109 mg/dL (65-115); Osmolality Calculated 287 mOsm/kg (285-295); Potassium 4.2 mmol/L (3.5-5.1); Sodium 138 mmol/L (136-145)
== END 2022-09-09 13:06 | disposition home or self-care (01) ==
PROVIDERS: PCP Family Medicine; Visit Provider Family Medicine
DX: Z01.89 Encounter for other specified special examinations (principal)
CPT/HCPCS: 80048; 85025

== ENCOUNTER 2022-10-13 23:10 | Emergency (ER) | payer MEDICARE, OTHER, SELFPAY ==
[2022-10-13 23:17] VITALS: BP 149/86; PULSE 90; RESP 20; TEMP 36.6; O2SAT 99; BMI 30.2
--- NOTE | 2022-10-13 23:22 | ED_ITS ---
HPI - SOB/Dyspnea General: Chief Complaint: Shortness of Breath/Dyspnea Stated Complaint: RESP. DISTRESS Time Seen by Provider: 10/13/22 23:22 Limitations: altered mental status History of Present Illness: HPI Narrative: 86-year-old lady with history of dementia presenting from custodial. Apparently she became acutely short of breath few hours ago with increased respiratory rate and room air oxygen saturations in the 80s. Family at bedside saw her earlier today and she was evaluated by custodial physician without complaint or abnormality. No history of underlying lung disease. History is limited by patient's mental status though no clear history provided of choking event or other obvious cause. Onset (ago): hour(s) Review of Systems General: Reports: ROS unobtainable due to mental status PFSH ED PFSH: Medical History Asthma Closed subcapital fracture of neck of right femur Constipation Cystocele, midline Dementia DVT (deep venous thrombosis) Fall GERD (gastroesophageal reflux disease) IBS (irritable bowel syndrome) Osteoporosis Pneumonia Rectocele Rhabdomyolysis Shortness of Breath SOB (shortness of breath) Tachycardia Urinary retention Surgical History S/P hernia repair S/P left rotator cuff repair Status post hip hemiarthroplasty Family History Father CAD (coronary artery disease) Atrial fibrillation Myocardial infarction Mother CAD (coronary artery disease) Diabetes Myocardial infarction Family/Other Cancer Other Closed subcapital fracture of neck of right femur Social History Smoking and tobacco status: never smoked Alcohol intake: never Substance/Drug Use: never Lives independently: Yes Marital status: / service: No Current occupational status: retired Current gender identity: Male and Female [place]/Protestant: [employer]-Ism Agree to transfusion: Yes Physical Exam Const: COMMON NORMALS: alert GENERAL APPEARANCE: cooperative and well developed HENMT: COMMON NORMALS: normocephalic and atraumatic HEAD & SCALP: normocephalic and atraumatic THROAT: posterior oropharynx normal Eye: COMMON NORMALS: conjunctivae normal CONJUNCTIVA: Yes conjunctivae normal SCLERA: sclerae normal Neck/C-Spine: COMMON NORMALS: supple GENERAL: Yes trachea midline Resp: EFFORT & INSPECTION: Yes tachypneic Cardio: COMMON NORMALS: regular rate and regular rhythm RATE: regular rate RHYTHM: regular rhythm GI: COMMON NORMALS: Soft to palpation PALPATION: Yes Soft to palpation and No Tenderness to palpation present (GI) Extremity: GENERAL: Yes normal exam except as noted and No edema Neuro: COMMON NORMALS: moves all extremities SENSORIUM/ORIENTATION: Yes alert and Yes Orientation impaired Psych: MEMORY/COGNITION: Yes memory grossly impaired Course Vital Signs: Vital signs: Vital Signs Temperature 97.9 F 10/13/22 23:17 Pulse Rate 90 10/14/22 02:56 Respiratory Rate 18 10/14/22 02:56 Blood Pressure 124/82 10/14/22 01:00 Pulse Oximetry 93 10/14/22 02:56 Oxygen Delivery Me thod Nasal Cannula 10/14/22 02:19 Oxygen Flow Rate 3 10/13/22 23:27 MDM - SOB/Dyspnea Medical Decision Making 86-year-old lady presenting with shortness of breath and new oxygen requirement. Exam as above with increased work of breathing. Patient is nontoxic. EKG demonstrates sinus rhythm with left axis deviation, nonspecific ST segment abnormalities, no STEMI. Labs with no significant hematologic abnormalities compared to baseline. No acute hematologic abnormality. Negative range 2-hour delta troponin. BNP is minimally elevated. Chest x-ray with possible left basal opacity. Overall fairly given degree of symptoms. D-dimer ordered as it can be ruled out by Wells/PERC. CTA negative for pneumonia or PE. Perhaps bronchitis noted. Incidental findings noted. Patient treated with RT treatment however actually prior to this had spontaneous improvement with no longer requiring supplemental oxygen. Exact etiology of symptoms is unclear. Perhaps mucous plugging. Discussed with family who are comfortable with outpatient management. The results of ED evaluation were discussed with the family including prescriptions and/or symptomatic cares (if applicable) including appropriate and responsible use, followup plan, and return precautions. The patient and family verbalized understanding and felt safe for discharge. Medical Records I reviewed the patient's medical records. Lab Data I reviewed the patient's lab results. 10/13/22 22:55 10/13/22 22:55 Labs/Radiology: Radiology Impressions Chest X-Ray 10/13/22 23:42 IMPRESSION: Asymmetric left basal opacities raise concern for aspiration/pneumonia. Chest CTA 10/13/22 23:59 IMPRESSION: 1. No evidence of acute pulmonary embolism. 2. No evidence of pneumonia. 3. Increased bronchial wall thickening compared to 06/03/2022 suggesting large airways disease/bronchitis. 4. Ancillary findings as above including moderate-large hiatal hernia. COMMENTS: Consistent with the [employer]'s Incidental Findings Committee white paper (J Am Lupe Radiol 2018): Any incidental renal lesion less than 1 cm or classified as too small to characterize, or any incidental cystic renal lesion characterized as simple-appearing, is likely benign. No follow-up imaging is recommended for these lesions per consensus recommendations based on imaging criteria. Laboratory Results WBC 9.7 10^3/uL (4.0-10.0) 10/13/22 22:55 RBC 3.78 10^6/uL (4.1-5.3) L 10/13/22 22:55 Hgb 10.2 g/dL (11.5-15.3) L 10/13/22 22:55 Hct 32.8 % (37.0-47.0) L 10/13/22 22:55 MCV 86.8 fl (81-99) 10/13/22 22:55 MCH 27.0 pg (28.0-34.0) L 10/13/22 22:55 MCHC 31.1 g/dL (30.0-36.0) 10/13/22 22:55 RDW 17.2 % (12.1-15.1) H 10/13/22 22:55 Plt Count 511 10^3/cmm (130-400) H 10/13/22 22:55 MPV 9.2 fL (7.4-10.4) 10/13/22 22:55 Neut % (Auto) 76.4 % 10/13/22 22:55 Lymph % (Auto) 14.2 % 10/13/22 22:55 Isabella % (Auto) 8.5 % 10/13/22 22:55 Eos % (Auto) 0.3 % 10/13/22 22:55 Baso % (Auto) 0.2 % 10/13/22 22:55 Neut # (Auto) 7.38 10^3/uL (1.8-7.7) 10/13/22 22:55 Lymph # (Auto) 1.4 10^3/uL (0.8-4.8) 10/13/22 22:55 Isabella # (Auto) 0.8 10^3/uL (0.2-0.9) 10/13/22 22:55 Eos # (Auto) 0.0 10^3/uL (0.0-0.8) 10/13/22 22:55 Baso # (Auto) 0.0 10^3/uL (0.0-0.1) 10/13/22 22:55 Nucleated RBC % (auto) 0 % 10/13/22 22:55 Nucleated RBCs # 0.0 /100WBC 10/13/22 22:55 D-Dimer 3.42 ug/mIFEU (0-0.59) H 10/13/22 22:55 Sodium 136 mmol/L (136-145) 10/13/22 22:55 Potassium 3.8 mmol/L (3.5-5.1) 10/13/22 22:55 Chloride 99 mmol/L (98-107) 10/13/22 22:55 Carbon Dioxide 25 mmol/L (22-29) 10/13/22 22:55 Anion Gap 15.8 (5-19) 10/13/22 22:55 BUN 12 mg/dL (8-23) 10/13/22 22:55 Creatinine 0.4 mg/dL (0.5-0.9) L 10/13/22 22:55 GFR Calculation Not Reportable 10/13/22 22:55 Glucose 112 mg/dL (65-115) 10/13/22 22:55 Calculated Osmolality 283 mOsm/kg (285-295) L 10/13/22 22:55 Lactic Acid 1.6 mmol/L (0.5-2.2) 10/14/22 00:15 Calcium 8.7 mg/dL (8.5-10.5) 10/13/22 22:55 Total Bilirubin 0.2 mg/dL (0.15-1.2) 10/13/22 22:55 AST 10 U/L (0-32) 10/13/22 22:55 ALT < 5 U/L (0-33) 10/13/22 22:55 Alkaline Phosphatase 104 U/L (35-105) 10/13/22 22:55 Troponin T Baseline 15 ng/L (0-10) H 10/13/22 22:55 Troponin T 120 Minute 16.86 ng/L (0-10) H 10/14/22 00:15 Delta Troponin T 1.86 ABS# (0-10) 10/14/22 00:15 NT-Pro-B Natriuret Pep 1059 pg/mL (0-450) H 10/13/22 22:55 Total Protein 5.8 g/dL (6.6-8.7) L 10/13/22 22:55 Albumin 3.2 g/dL (3.5-5.2) L 10/13/22 22:55 Globulin 2.6 g/dL (1.3-4.6) 10/13/22 22:55 Nasal Influ A H1 2009 PCR Not detected (NOT DETECT) 10/13/22 23:56 Adenovirus (PCR) Not detected (NOT DETECT) 10/13/22 23:56 C. pneumoniae DNA (PCR) Not detected (NOT DETECT) 10/13/22 23:56 Coronavirus 229E (PCR) Not detected (NOT DETECT) 10/13/22 23:56 Human Metapneumovir PCR Not detected (NOT DETECT) 10/13/22 23:56 Influenza A (H1) PCR Not detected (NOT DETECT) 10/13/22 23:56 Influenza A (H3) PCR Not detected (NOT DETECT) 10/13/22 23:56 Influenza Type A (PCR) Not detected (NOT DETECT) 10/13/22 23:56 Influenza Type B (PCR) Not detected (NOT DETECT) 10/13/22 23:56 M. pneumoniae (PCR) Not detected (NOT DETECT) 10/13/22 23:56 Parainfluenza 1 (PCR) Not detected (NOT DETECT) 10/13/22 23:56 Parainfluenza 2 (PCR) Not detected (NOT DETECT) 10/13/22 23:56 Parainfluenza 3 (PCR) Not detected (NOT DETECT) 10/13/22 23:56 Parainfluenza 4 (PCR) Not detected (NOT DETECT) 10/13/22 23:56 RSV Type A (PCR) Not detected (NOT DETECT) 10/13/22 23:56 RSV Type B (PCR) Not detected (NOT DETECT) 10/13/22 23:56 Entero/Rhino (PCR) Not detected (NOT DETECT) 10/13/22 23:56 SARS-CoV-2 (PCR) Not detected (NOT DETECT) 10/13/22 23:56 Discharge Plan Discharge Patient Disposition: Home Clinical Impression: Hypoxia Condition: Stable Prescriptions: New albuterol sulfate 90 mcg/actuation HFA aerosol inhaler 2 inh inhalation Q4H PRN (Reason: shortness of breath or wheezing) Qty: 8.5 0RF No Action famotidine [Pepcid] 20 mg tablet 20 mg PO DAILY@12 fluticasone propionate [Flonase Allergy Relief] 50 mcg/actuation spray,suspension 1 spray INTRANASAL BID PRN (Reason: Allergy Symptoms) (DME) manual wheelchair See Rx Instructions .Route .MEDSUPPLY Qty: 1 0RF Rx Instructions: Please issue manual wheelchair. tramadol 50 mg tablet 50 mg PO TID PRN (Reason: pain) Qty: 90 5RF calcium carbonate [Calcium 600] 600 mg calcium (1,500 mg) Tablet 600 mg PO DAILY@12 docusate sodium [Charlton' Liqui-Gels] 100 mg Capsule 100 mg PO DAILY PRN (Reason: Constipation) acetaminophen [Tylenol] 325 mg Tablet 650 mg PO Q6H PRN (Reason: Pain) cetirizine [Zyrtec] 10 mg Tablet 10 mg PO DAILY PRN (Reason: Allergy Symptoms) quetiapine 25 mg Tablet 25 mg PO BEDTIME Qty: 30 0RF sennosides-docusate sodium [Stool Softener-Laxative] 8.6-50 mg Tablet 1 tab PO DAILY Qty: 30 0RF haloperidol 0.5 mg tablet 0.5 mg PO BID PRN (Reason: Anxiety) Qty: 30 0RF metoprolol succinate 50 mg tablet extended release 24 hr 50 mg PO DAILY@12 Qty: 30 0RF aspirin 325 mg tablet,delayed release (DR/EC) 325 mg PO DAILY Qty: 30 0RF Discharge Orders: Discharge ED (Routine); Ordered 10/14/22 Ordered By: Nahid Aguero Referrals: Bello Pavon DO [Primary Care Provider] - Discharge Diet: Usual diet Discharge Activity: Resume usual activity Patient Instructions: Shortness of Breath (ED) Activity Restrictions/Additional Instructions: Thank you for visiting the emergency department. You were seen and evaluated for shortness of breath and new oxygen requirement. This resolved. The exact cause of symptoms as discussed is unclear. I do not see evidence of pneumonia. This may have been due to transient mucous plugging. I will prescribe albuterol. Please continue your other medications. Follow-up with a primary care provider. Return for recurrent or worsening symptoms or anything else that you are concerned about and feel needs emergency department evaluation. Coding Level of Care Code ED Superintendent Operations Division for Darius Bowers
[2022-10-13 23:26] VITALS: O2SAT 100
[2022-10-13 23:27] VITALS: BP 149/86; PULSE 89; RESP 26; O2SAT 100
--- NOTE | 2022-10-13 23:42 | ECG_ITS ---
[facility] Test Date: 2022-10-13 Pat Name: Cristina Whittington Department: Room: Gender: Female Regulatory Affairs Director: : 1935 Requested By: Nahid Aguero Order Number: [id number] Luly MD: Lucian Hardin M.D. Measurements Intervals [place] Rate: 86 P: 25 NH: 161 QRS: -34 QRSD: 97 T: 26 QT: 354 QTc: 425 Interpretive Statements SINUS RHYTHM LEFT AXIS DEVIATION [QRS AXIS < -30] PATTERN CONSISTENT WITH PULMONARY DISEASE INCOMPLETE RIGHT BUNDLE BRANCH BLOCK [90+ ms QRS DURATION, TERMINAL R IN V1/V2, 40+ ms S IN I/aVL/V4/V5/V6] MODERATE VOLTAGE CRITERIA FOR LVH, CONSIDER NORMAL VARIANT [MEETS CRITERIA IN ONE OF: R(aVL), S(V1), R(V5), R(V5/V6)+S(V1)] Compared to ECG 07/21/2022 16:03:08 Incomplete right bundle-branch block now present Ventricular premature complex(es) no longer present Electronically Signed On 10-14-2022 12:16:08 CDT by Lucian Hardin M.D. [email or web address]
--- NOTE | 2022-10-13 23:42 | XRR_ITS ---
PROCEDURE INFORMATION: Exam: XR Chest Exam date and time: 10/13/2022 11:51 PM Age: 86 years old Clinical indication: Shortness of breath; Additional info: SOB, new o2 req TECHNIQUE: Imaging protocol: Radiologic exam of the chest. Views: 1 view. COMPARISON: CR XR chest 1V portable [id number] 07/21/2022 1:52 PM FINDINGS: Lungs: Moderate lung expansion. Asymmetric left basal opacities. Pleural spaces: No pleural effusion. No pneumothorax. Heart/Mediastinum: Stable cardiomediastinal silhouette. Mild aortic calcifications. Bones/joints: No acute osseous abnormality. Post right shoulder rotator cuff repair. XR/XR chest 1V portable [id number] IMPRESSION: Asymmetric left basal opacities raise concern for aspiration/pneumonia.
[2022-10-13 23:49] LABS: Basophils % 0.2 %; Eosinophils % 0.3 %; Hematocrit 32.8 % (37.0-47.0); Hemoglobin 10.2 g/dL (11.5-15.3); Lymphocytes # 1.4 10^3/uL (0.8-4.8); Lymphocytes % 14.2 %; Mean Corpuscular HGB Conc 31.1 g/dL (30.0-36.0); Mean Corpuscular Volume 86.8 fl (81-99); Mean Platelet Volume 9.2 fL (7.4-10.4); Monocytes # 0.8 10^3/uL (0.2-0.9); Monocytes % 8.5 %; Neutrophils # 7.38 10^3/uL (1.8-7.7); Neutrophils % 76.4 %; Nucleated Red Blood Cells % 0 %; Platelet Count 511 10^3/cmm (130-400); Red Blood Count 3.78 10^6/uL (4.1-5.3); Red Cell Distribution Width 17.2 % (12.1-15.1); White Blood Count 9.7 10^3/uL (4.0-10.0)
[2022-10-13 23:57] LABS: D Dimer 3.42 ug/mIFEU (0-0.59)
--- NOTE | 2022-10-13 23:59 | CTR_ITS ---
PROCEDURE INFORMATION: Exam: CTA Chest With Contrast Exam date and time: 10/14/2022 12:44 AM Age: 86 years old Clinical indication: Shortness of breath and other: Elevated d-dimer; Additional info: SOB, new o2, elevated ddimer, limited mobility TECHNIQUE: Imaging protocol: Computed tomographic angiography of the chest with contrast. Exam focused on the arteries. 3D rendering (Not supervised by radiologist): MIP and/or 3D reconstructed images were created by the technologist. Radiation optimization: All CT scans at this facility use at least one of these dose optimization techniques: automated exposure control; mA and/or kV adjustment per patient size (includes targeted exams where dose is matched to clinical indication); or iterative reconstruction. Contrast material: OMNI 350; Contrast volume: 75 ml; Contrast route: INTRAVENOUS (IV); REPORTING DATA: Count of CT and Cardiac NM exams in prior 12 months: This patient has received 6 known CTs and 0 known cardiac nuclear medicine studies in the 12 months prior to the current study. COMPARISON: CT chest abdpel w/*[id number] 06/03/2022 3:57 PM RADIATION DOSE METRICS: Total DLP (mGy-cm): 267.4 FINDINGS: Pulmonary arteries: Normal caliber of the main pulmonary artery. Pulmonary arteries are well opacified to the mid subsegmental level. No pulmonary artery filling defects seen. Aorta: Normal caliber of the ascending aorta. Mild atherosclerotic disease of the thoracic aorta. Trachea: Minimal endotracheal secretions. Lungs: Bronchial wall thickening . Biapical scarring. Atelectatic changes in the lower lobes. No consolidation. Scattered calcified granulomas. Pleural spaces: Unremarkable. No pneumothorax. No pleural effusion. Heart: No discrete cardiac chamber enlargement. Aortic valve leaflet calcifications which can be seen in setting of aortic valve stenosis. Coronary arteries: Mild coronary artery calcifications. Lymph nodes: Prominent subcentimeter lymph nodes in the mediastinum. Scattered calcified mediastinal hilar lymph nodes indicative of prior granulomatous disease. Diaphragm: Moderate-large hiatal hernia. Mild circumferential thickening of the esophagus which may reflect reflux esophagitis. Liver: Calcified granulomas in the liver. Spleen: Calcified granulomas in the spleen. Kidneys and ureters: Right renal cyst. Partially visualized presumed right extrarenal pelvis. Bones/joints: Healed right-sided rib fracture deformities. Healed left anterior rib fracture deformities. Left convex curvature of the thoracolumbar spine.. No acute fracture. Soft tissues: Unremarkable. CT/CT angio chest PE protcl [id number] IMPRESSION: 1. No evidence of acute pulmonary embolism. 2. No evidence of pneumonia. 3. Increased bronchial wall thickening compared to 06/03/2022 suggesting large airways disease/bronchitis. 4. Ancillary findings as above including moderate-large hiatal hernia. COMMENTS: Consistent with the [place] [employer]'s Incidental Findings Committee white paper (J Am Lupe Radiol 2018): Any incidental renal lesion less than 1 cm or classified as too small to characterize, or any incidental cystic renal lesion characterized as simple-appearing, is likely benign. No follow-up imaging is recommended for these lesions per consensus recommendations based on imaging criteria.
[2022-10-14 00:08] LABS: Troponin(5th) Baseline 15 ng/L (0-10)
[2022-10-14 00:16] LABS: Alanine Aminotransferase < 5 U/L (0-33); Albumin Level 3.2 g/dL (3.5-5.2); Alkaline Phosphatase 104 U/L (35-105); Anion Gap 15.8 (5-19); Aspartate Amino Transferase 10 U/L (0-32); Blood Urea Nitrogen 12 mg/dL (8-23); Calcium 8.7 mg/dL (8.5-10.5); Carbon Dioxide 25 mmol/L (22-29); Chloride 99 mmol/L (98-107); Globulin 2.6 g/dL (1.3-4.6); Glucose 112 mg/dL (65-115); NT Pro B Type Natriuretic Pept 1059 pg/mL (0-450); Osmolality Calculated 283 mOsm/kg (285-295); Potassium 3.8 mmol/L (3.5-5.1); Sodium 136 mmol/L (136-145); Total Bilirubin 0.2 mg/dL (0.15-1.2); Total Protein 5.8 g/dL (6.6-8.7)
[2022-10-14] MEDS: iohexol 350 mg/mL 500 mL Btl (per mL) IV (00:19)
[2022-10-14 00:31] VITALS: BP 124/52; RESP 24
[2022-10-14 01:00] VITALS: BP 124/82; PULSE 91; RESP 25; O2SAT 95
[2022-10-14 01:00] LABS: Troponin 5 2HR 16.86 ng/L (0-10)
[2022-10-14 01:01] LABS: Troponin 5 2HR Delta 1.86 ABS# (0-10)
[2022-10-14 01:02] LABS: Lactic Sepsis W/Reflex 1.6 mmol/L (0.5-2.2)
[2022-10-14] MEDS: ipratropium-albuterol 3 mL Neb INHALATION (01:33)
[2022-10-14 01:36] VITALS: PULSE 87; RESP 21; O2SAT 98
--- NOTE | 2022-10-14 01:42 | ECG_ITS ---
[facility] Test Date: 2022-10-14 Pat Name: Cristina Whittington Department: Room: Gender: Female Crm Manager: : 1935 Requested By: Nahid Aguero Order Number: [id number] Luly MD: Lucian Hardin M.D. Measurements Intervals [place] Rate: 97 P: 14 DE: 147 QRS: -34 QRSD: 90 T: 18 QT: 334 QTc: 426 Interpretive Statements SINUS RHYTHM WITH OCCASIONAL ECTOPIC PREMATURE COMPLEXES LEFT AXIS DEVIATION [QRS AXIS < -30] PATTERN CONSISTENT WITH PULMONARY DISEASE MODERATE ST DEPRESSION [0.05+ mV ST DEPRESSION] Compared to ECG 10/13/2022 23:53:10 ST (T wave) deviation now present Incomplete right bundle-branch block no longer present Electronically Signed On 10-14-2022 12:22:11 CDT by Lucian Hardin M.D. [id number]
[2022-10-14 01:52] LABS: Adenovirus Not Detected (NOT DETECT); Chlamydia Pneumoniae Not Detected (NOT DETECT); Coronavirus 229E,HKU1,NL63,OC4 Not Detected (NOT DETECT); Human Metapneumovirus Not Detected (NOT DETECT); Human Rhinovirus/Enterovirus Not Detected (NOT DETECT); Influenza A Not Detected (NOT DETECT); Influenza A H1 Not Detected (NOT DETECT); Influenza A H1-2009 Not Detected (NOT DETECT); Influenza A H3 Not Detected (NOT DETECT); Influenza B Not Detected (NOT DETECT); Mycoplasma Pneumoniae Not Detected (NOT DETECT); Parainfluenza Virus Type 1 Not Detected (NOT DETECT); Parainfluenza Virus Type 2 Not Detected (NOT DETECT); Parainfluenza Virus Type 3 Not Detected (NOT DETECT); Parainfluenza Virus Type 4 Not Detected (NOT DETECT); Respiratory Syncytial Virus A Not Detected (NOT DETECT); Respiratory Syncytial Virus B Not Detected (NOT DETECT); SARS-COV-2 Not Detected (NOT DETECT)
[2022-10-14 02:19] VITALS: PULSE 106; RESP 25; O2SAT 95
[2022-10-14 02:56] VITALS: PULSE 90; RESP 18; O2SAT 93
== END 2022-10-14 03:15 | disposition home or self-care (01) ==
PROVIDERS: Emergency Provider Emergency Medicine; PCP Family Medicine
DX: R09.02 Hypoxemia (principal); R94.31 Abnormal electrocardiogram [ECG] [EKG]
CPT/HCPCS: 71045; 71275; 80053; 83605; 83880; 84484; 85025; 85378; 87486; 87581; 87633; 93005; 94640; 99285; Q9967

== ENCOUNTER 2022-10-18 14:25 | Outpatient (CLI) | payer MEDICARE, OTHER, SELFPAY ==
[2022-10-18 14:54] LABS: Basophils # 0.1 10^3/uL (0.0-0.1); Basophils % 0.6 %; Eosinophils # 0.1 10^3/uL (0.0-0.8); Eosinophils % 1.2 %; Hematocrit 36.1 % (37.0-47.0); Lymphocytes # 1.3 10^3/uL (0.8-4.8); Lymphocytes % 16.1 %; Mean Corpuscular HGB Conc 30.5 g/dL (30.0-36.0); Mean Corpuscular Hemoglobin 26.3 pg (28.0-34.0); Mean Corpuscular Volume 86.4 fl (81-99); Mean Platelet Volume 9.1 fL (7.4-10.4); Monocytes # 0.6 10^3/uL (0.2-0.9); Monocytes % 7.5 %; Neutrophils # 5.99 10^3/uL (1.8-7.7); Neutrophils % 74.2 %; Nucleated Red Blood Cells % 0 %; Platelet Count 535 10^3/cmm (130-400); Red Blood Count 4.18 10^6/uL (4.1-5.3); Red Cell Distribution Width 16.8 % (12.1-15.1); White Blood Count 8.1 10^3/uL (4.0-10.0)
[2022-10-18 15:09] LABS: Erythrocyte Sedimentation Rate 56 mm/hr (0-15)
[2022-10-18 15:24] LABS: Alanine Aminotransferase < 5 U/L (0-33); Albumin Level 3.2 g/dL (3.5-5.2); Alkaline Phosphatase 101 U/L (35-105); Anion Gap 12.2 (5-19); Aspartate Amino Transferase 10 U/L (0-32); Blood Urea Nitrogen 11 mg/dL (8-23); C Reactive Protein 38.6 mg/L (0.0-4.9); Carbon Dioxide 30 mmol/L (22-29); Chloride 91 mmol/L (98-107); Globulin 3.5 g/dL (1.3-4.6); Glucose 88 mg/dL (65-115); NT Pro B Type Natriuretic Pept 761 pg/mL (0-450); Osmolality Calculated 269 mOsm/kg (285-295); Potassium 3.2 mmol/L (3.5-5.1); Sodium 130 mmol/L (136-145); Thyroid Stimulating Hormone 3.66 uIU/mL (0.27-4.20); Total Bilirubin 0.2 mg/dL (0.15-1.2); Total Protein 6.7 g/dL (6.6-8.7)
== END 2022-10-18 14:26 | disposition home or self-care (01) ==
LOC: LAB 14:26
PROVIDERS: PCP Family Medicine; Visit Provider Family Medicine
DX: Z01.89 Encounter for other specified special examinations (principal)
CPT/HCPCS: 80053; 83880; 84443; 85025; 85651; 86140

== ENCOUNTER → 2022-11-02 08:59 | Outpatient (BNVA) | payer MEDICARE, OTHER, SELFPAY | PROVIDERS: PCP Family Medicine; Visit Provider Podiatrist Foot & Ankle Surgery | DX: I73.9 Peripheral vascular disease, unspecified (principal); L60.3 Nail dystrophy; M20.41 Other hammer toe(s) (acquired), right foot; M20.42 Other hammer toe(s) (acquired), left foot | CPT/HCPCS: 11721; 99204 ==

== ENCOUNTER 2022-12-22 16:21 | Outpatient (CLI) | payer MEDICARE, OTHER, SELFPAY ==
[2022-12-22 17:15] LABS: Bilirubin Urine Neg (Negative); Blood Urine Neg (Negative); Glucose Urine UA Norm (Normal); Ketones Urine Negative (Negative); Leukocyte Esterase Urine Negative (Negative); Nitrate Urine Negative (Negative); Protein Urine Neg (Negative); Specific Gravity, Urine 1.015 (1.005-1.030); Urine Appearance Cloudy (CLEAR); Urine Color Yellow (Yellow); Urobilinogen Urine Norm (Negative); pH Urine 8 (5-7)
[2022-12-22 17:16] LABS: Add Urine Microscopic? YES; Sulfosalicylic Acid Urine Negative (Negative)
[2022-12-22 17:17] LABS: Add Urine Culture? No; Amorphous Sediment Urine 4+ /hpf; RBC Urine 0-4 /hpf (0-2); Squamous Epithelial Cell Urine 0-4 /hpf (0-5); WBC Urine 0-4 /hpf (0-5)
== END 2022-12-22 16:22 | disposition home or self-care (01) ==
PROVIDERS: PCP Family Medicine; Visit Provider Family Medicine
DX: N39.0 Urinary tract infection, site not specified (principal)
CPT/HCPCS: 81001; 87077; 87086; 87186

== ENCOUNTER 2023-06-23 16:19 | Outpatient (CLI) | payer MEDICARE, OTHER, SELFPAY ==
[2023-06-23 18:06] LABS: Add Urine Microscopic? YES; Bilirubin Urine Neg (Negative); Blood Urine Neg (Negative); Glucose Urine UA Norm (Normal); Ketones Urine Negative (Negative); Leukocyte Esterase Urine Trace (Negative); Nitrate Urine Negative (Negative); Protein Urine Neg (Negative); Urine Appearance Hazy (CLEAR); Urine Color Yellow (Yellow); Urobilinogen Urine Norm (Negative); pH Urine 6 (5-7)
[2023-06-23 18:11] LABS: Add Urine Culture? Yes; Bacteria Urine 1+ /hpf; Mucus Urine TRACE /hpf; RBC Urine 0-4 /hpf (0-2); Squamous Epithelial Cell Urine 15-25 /hpf (0-5); Transitional Epi Cells Urine 0-4 /hpf; WBC Urine 15-25 /hpf (0-5)
== END 2023-06-23 16:20 | disposition home or self-care (01) ==
LOC: LAB 16:25
PROVIDERS: PCP Family Medicine; Visit Provider Family Medicine
DX: N39.0 Urinary tract infection, site not specified (principal)
CPT/HCPCS: 81001; 87086

== ENCOUNTER 2023-09-12 15:41 | Outpatient (CLI) | payer MEDICARE, OTHER, SELFPAY ==
[2023-09-12 16:02] LABS: Glucose Urine UA Norm (Normal); Ketones Urine Negative (Negative); Protein Urine Neg (Negative); Urine Appearance Clear (CLEAR); Urine Color Yellow (Yellow); pH Urine 9 (5-7)
[2023-09-12 16:03] LABS: Add Urine Microscopic? YES; Bilirubin Urine Neg (Negative); Blood Urine Neg (Negative); Leukocyte Esterase Urine Negative (Negative); Nitrate Urine Negative (Negative); Sulfosalicylic Acid Urine Positive (Negative); Urobilinogen Urine Neg (Negative)
[2023-09-12 16:15] LABS: RBC Urine RARE /hpf (0-2); WBC Urine 0-4 /hpf (0-5)
[2023-09-12 16:16] LABS: Add Urine Culture? No; Bacteria Urine TRACE /hpf; Mucus Urine 1+ /hpf
== END 2023-09-12 15:42 | disposition home or self-care (01) ==
LOC: LAB 15:42
PROVIDERS: PCP Family Medicine; Visit Provider Family Medicine
DX: N39.0 Urinary tract infection, site not specified (principal)
CPT/HCPCS: 81001; 87086

== ENCOUNTER 2024-01-22 12:58 | Outpatient (CLI) | payer MEDICARE, OTHER, SELFPAY ==
[2024-01-22 13:25] LABS: Bilirubin Urine Negative (Negative); Blood Urine Negative (Negative); Glucose Urine UA Negative (Normal); Ketones Urine Negative (Negative); Leukocyte Esterase Urine 1+ (Negative); Nitrate Urine Positive (Negative); Protein Urine Negative (Negative); Specific Gravity, Urine 1.016 (1.005-1.030); Urine Appearance Cloudy (CLEAR); Urine Color Yellow (Yellow); pH Urine 6.5 (5-7)
[2024-01-22 13:28] LABS: Add Urine Microscopic? YES; Bacteria Urine 4+ /hpf; Hyaline Casts Urine 1.21 /lpf; RBC Urine 0-2 /hpf (0-2); Squamous Epithelial Cell Urine 0-5 /hpf (0-5)
[2024-01-22 13:33] LABS: Add Urine Culture? Yes
== END 2024-01-22 12:59 | disposition home or self-care (01) ==
PROVIDERS: PCP Family Medicine; Visit Provider Family Medicine
DX: N39.0 Urinary tract infection, site not specified (principal)
CPT/HCPCS: 81001; 87077; 87086; 87186

== ENCOUNTER 2024-06-22 18:05 | Outpatient (CLI) | payer MEDICARE, OTHER, SELFPAY ==
[2024-06-22 18:16] LABS: Bilirubin Urine Negative (Negative); Blood Urine Negative (Negative); Glucose Urine UA Negative (Normal); Ketones Urine Trace (Negative); Leukocyte Esterase Urine 2+ (Negative); Nitrate Urine Negative (Negative); Protein Urine 1+ (Negative); Specific Gravity, Urine 1.029 (1.005-1.030); Urine Appearance Turbid (CLEAR); Urine Color Dark Yellow (Yellow)
[2024-06-22 18:21] LABS: Add Urine Microscopic? YES; Bacteria Urine 4+ /hpf; Hyaline Casts Urine 4.95 /lpf; Squamous Epithelial Cell Urine 21-50 /hpf (0-5); Universal Test for UA Present (0); WBC Urine >100 /hpf (0-5)
[2024-06-22 18:37] LABS: Add Urine Culture? No; Amorphous Sediment Urine 4+ /hpf
== END 2024-06-22 18:06 | disposition home or self-care (01) ==
LOC: LAB 18:10
PROVIDERS: PCP Family Medicine; Visit Provider Family Medicine
DX: N39.0 Urinary tract infection, site not specified (principal)
CPT/HCPCS: 81001; 87086

== ENCOUNTER 2024-08-09 06:50 | Emergency (ER) | payer MEDICARE, OTHER, SELFPAY ==
[2024-08-09 06:51] VITALS: BP 91/62; PULSE 93; RESP 18; TEMP 36.4; O2SAT 91; BMI 25.4
--- NOTE | 2024-08-09 07:08 | ECG_ITS ---
[facility] Test Date: 2024-08-09 Pat Name: Cristina Whittington Department: Room: Gender: Female Ground Host/Hostess: : 1935 Requested By: Manuel Calderon Order Number: [id number] Luly MD: Lucian Hardin M.D. Measurements Intervals [place] Rate: 91 P: 56 [place]: 179 QRS: -43 QRSD: 100 T: 27 QT: 343 QTc: 423 Interpretive Statements SINUS RHYTHM LEFT AXIS DEVIATION [QRS AXIS < -30] LOW QRS VOLTAGE IN PRECORDIAL LEADS [QRS DEFLECTION < 1.0 mV IN CHEST LEADS] INCOMPLETE RIGHT BUNDLE BRANCH BLOCK [90+ ms QRS DURATION, TERMINAL R IN V1/V2, 40+ ms S IN I/aVL/V4/V5/V6] POSSIBLE ANTERIOR MYOCARDIAL INFARCTION , OF INDETERMINATE AGE [30 ms Q WAVE IN V3/V4, OR R < 0.2 mV IN V4] Compared to ECG 10/14/2022 01:47:00 Low QRS voltage now present Incomplete right bundle-branch block now present Myocardial infarct finding now present ST (T wave) deviation no longer present Electronically Signed On 08-13-2024 09:29:38 CDT by Lucian Hardin M.D. [email or web address] [id number]
--- NOTE | 2024-08-09 07:08 | CTR_ITS ---
PROCEDURE INFORMATION: Exam: CT Head Without Contrast Exam date and time: 08/09/2024 7:15 AM Age: 88 years old Clinical indication: Stroke-like symptoms; Altered mental status/memory loss; Additional info: Symptoms of acute stroke, seizure like activity this am. Non responsive TECHNIQUE: Imaging protocol: Computed tomography of the head without contrast. Radiation optimization: All CT scans at this facility use at least one of these dose optimization techniques: automated exposure control; mA and/or kV adjustment per patient size (includes targeted exams where dose is matched to clinical indication); or iterative reconstruction. Other technique: STROKE PROTOCOL was implemented. COMPARISON: CT head wo con* [id number] 07/21/2022 3:20 PM RADIATION DOSE METRICS: Total DLP (mGy-cm): 1072.87 FINDINGS: Brain: Periventricular white matter changes. No large territorial infarct hemorrhage mass effect or midline shift. Intracranial vascular calcification Cerebral ventricles: No ventriculomegaly. Paranasal sinuses: Visualized sinuses are unremarkable. No fluid levels. Mastoid air cells: Visualized mastoid air cells are well aerated. Bones: Unremarkable. No acute fracture. Soft tissues: Unremarkable. CT/CT head thrombolytic [id number] IMPRESSION: Periventricular white matter changes. No large territorial infarct hemorrhage mass effect or midline shift. ASSESSMENT: ASPECTS ([place] Stroke Program Early CT Score) is 10.
--- NOTE | 2024-08-09 07:14 | ED_ITS ---
HPI - Seizure 2 General: Chief Complaint: Seizure Stated Complaint: seziures Time Seen by Provider: 08/09/24 06:58 History of Present Illness: HPI Narrative: 88-year-old female presents emergency ro om via EMS from local [place] [facility]. She is in a dementia borjas. We are unable to get what her baseline status is how conversant or how active she usually is. Report EMS got from staff was that she had had a seizure. She is very poorly responsive when she arrives here she will open her eyes she will make some meaningful movements seem slightly weaker on her left side than her right but makes no verbal response whatsoever. We do not have a last known well we do not have knowledge of her baseline status is whether or not she is usually verbal or how active she is. She does not have any known history of seizures on her past medical record there is no antiseizure medications in her medicine list. She is mildly hypoxic on arrival and was placed on 2 L by nasal cannula. Because of noted weakness in her left side compared to the right as and it was multiple unknowns a stroke alert was called. Related Data Home Medications ?Medication ?Instructions ?Recorded ?Confirmed fluticasone propionate 50 1 spray intranasal BID PRN A llergy 04/18/19 08/09/24 mcg/actuation nasal Symptoms spray,suspension (Flonase Allergy Relief) famotidine 20 mg tablet (Pepcid) 20 mg PO DAILY@12 04/3008/09/24 calcium carbonate (Calcium 600) 600 mg PO DAILY@12 09/3008/09/24 acetaminophen 325 mg tablet 650 mg PO Q6H PRN Pain 08/09/24 (Tylenol) bisacodyl 10 mg rectal suppository 10 ea AR BID PRN Co nstipation 11/02/22 08/09/24 ferrous sulfate 325 mg (65 mg 325 ea PO BID 11/02/22 0 08/09/24 iron) tablet (FeroSul) furosemide 40 mg tablet 40 tab PO DAILY 11/02/2205/05 polyethylene glycol 3350 17 gram 1 ea PO DAILY 3 08/09/24 oral powder packet potassium citrate 10 mEq (1,080 10 tab PO DAILY 08/09/24 mg) tablet,extended release citalopram 10 mg tablet 5 mg PO DAILY PRN 08/09/24 0 08/09/24 anxiety/alzheimers hydroxyzine HCl 25 mg tablet 25 mg PO BID PRN Itching 08/09/24 08/09/24 lorazepam 0.5 mg tablet 0.5 mg PO TID PRN anxiety 08/09/24 magnesium hydroxide 400 mg/5 mL 30 ml PO DAILY PRN Con stipation 08/09/24 08/09/24 oral suspension (Milk of Magnesia) Previous Rx's ?Medication ?Instructions ?Recorded aspirin 325 mg tablet,delayed 325 mg PO DAILY #30 tabs 06/09/22 release metoprolol succinate 50 mg 50 mg PO DAILY@12 #30 tabs 06/09/22 tablet,extended release 24 hr quetiapine 25 mg tablet 25 mg PO BEDTIME #30 tabs sennosides 8.6 mg-docusate sodium 1 tab PO DAILY #30 t abs 06/09/22 50 mg tablet (Stool Softener-Laxative) tramadol 50 mg tablet 50 mg PO TID PRN pain #90 ta bs 07/04/23 Allergies Allergy/AdvReac Type Severity Reaction Status Date / Time Sulfa (Sulfonamide Allergy Unknown Unknown Verified 03/24/23 10:38 Antibiotics) Tetracyclines Allergy Unknown Unknown Verified 03/24/23 10:38 Review of Systems 2 General: Reports: ROS unobtainable due to medical condition PFSH ED 2 PFSH: Medical History Urinary retention Constipation Dementia Pneumonia Rhabdomyolysis Closed subcapital fracture of neck of right femur Fall Shortness of Breath DVT (deep venous thrombosis) Tachycardia GERD (gastroesophageal reflux disease) IBS (irritable bowel syndrome) Osteoporosis Asthma Cystocele, midline Rectocele SOB (shortness of breath) Surgical History Status post hip hemiarthroplasty S/P left rotator cuff repair S/P hernia repair Family History Father CAD (coronary artery disease) Atrial fibrillation Myocardial infarction Mother CAD (coronary artery disease) Diabetes Myocardial infarction Family/Other Cancer Other Closed subcapital fracture of neck of right femur Social History (Reviewed 08/09/24 @ 08:03 by HARSHAD Hernandez Smoking and tobacco/nicotine status: never used tobacco/nicotine Alcohol intake: never Substance/Drug Use: never Lives independently: Yes Marital status: / service: No Current occupational status: retired Current gender identity: Male and Female [place]/Episcopal: [employer] Agree to transfusion: Yes Physical Exam 2 HENMT: COMMON NORMALS: normocephalic and atraumatic HEAD & SCALP: n ormocephalic and atraumatic Resp: EFFORT & INSPECTION: Yes abnormal respiratory pattern and Yes tachypneic AUSCULTATION: crackles Cardio: COMMON NORMALS: regular rhythm and No murmurs present (Cardio) R ATE: bradycardic RHYTHM: regular rhythm GI: COMMON NORMALS: Soft to palpation and No hepatosplenomegaly present A USCULTATION: Yes normoactive bowel sounds PALPATION: Yes Soft to palpation, No Tenderness to palpation present (GI), No Guarding due to palpation present (GI) and Yes No hepatosplenomegaly present Extremity: GENERAL: Yes cyanosis Skin: COMMON NORMALS: no rashes or lesions noted GENERAL SKIN EXAM: no rashes or lesions noted Course 2 Vital Signs: Vital signs: Vital Signs Temperature 97.6 F 08/09/24 06:51 Pulse Rate 75 08/09/24 08:00 Respiratory Rate 18 08/09/24 06:51 Blood Pressure 62/42 08/09/24 07:30 Pulse Oximetry 96 08/09/24 08:00 Oxygen Delivery Me thod Nasal Cannula 08/09/24 08:00 Oxygen Flow Rate 6 08/09/24 08:00 MDM - Seizure MDM Narrative Medical decision making narrative: Patient presents reported as a seizure she is poorly responsive initially seems a little bit of weakness on her left side a stroke alert was called. Other lab work done. Patient rapidly declined to became hypoxic and severely hypotensive and then began to have bradycardia I discussed with the family on the initial paperwork from the [place] [facility] she is listed as being a full code they stated unequivocally that they do not want her to be a full code they wish her to be Do Not Recussitate. We did get a urine sample nursing was able to get a single IV with great difficulty due to her deteriorated condition. EKG shows some lateral depression in V5 and 6 and inverted T waves in 2 3 and aVF. Initial white count 21,000 lactate of 7. I suspect she is septic she had little to no urine output when the Arshad was placed. Discussion again with the family at the bedside explained my suspicions to them we have not yet been able to get a chest x-ray on the patient. The CT was done did not show any bleed or signs of subacute stroke. Family prefers to minimize interventions at this time and focus on comfort cares. Chest x-ray canceled per their request. Will monitor the patient for a time in the department she is deteriorating so rapidly at this point I feel her passing is imminent. Will review with the family again shortly and discuss options. Patient continued to rapidly deteriorate went into asystole. Family is at the bedside they had made the patient complete comfort care and asked that we stop all laboratory test and other interventions that we had ordered including fluid and antibiotics. Time of 838. I was at the bedside with the family verified that the patient had . Family was given opportunity to ask questions. We they had no questions at this time. Lab Data 08/09/24 07:06 08/09/24 07:06 Labs: Radiology Impressions Head CT 08/09/24 07:08 IMPRESSION: Periventricular white matter changes. No large territorial infarct hemorrhage mass effect or midline shift. ASSESSMENT: ASPECTS ([place] Stroke Program Early CT Score) is 10. ADDENDUM: 08/09/24 0731 THIS REPORT CONTAINS FINDINGS THAT MAY BE CRITICAL TO PATIENT CARE. The findings were verbally communicated via telephone conference with MANUEL PURDY at 7:30 AM CDT on 08/09/2024. The findings were acknowledged and understood. Laboratory Results WBC 21.18 10^3/uL (3.29-11.43) H 08/09/24 07:06 RBC 4.31 10^6/uL (3.85-5.65) 08/09/24 07:06 Hgb 13.10 g/dL (11.27-16.99) 08/09/24 07:06 Hct 41.6 % (36-47) 08/09/24 07:06 MCV 96.5 fl (85-98) 08/09/24 07:06 MCH 30.4 pg (27-33) 08/09/24 07:06 MCHC 31.5 g/dL (30-55) 08/09/24 07:06 RDW 14.7 % (12.1-15.1) 08/09/24 07:06 Plt Count 334 10^3/cmm (157-399) 08/09/24 07:06 MPV 10.2 fL (7.4-10.4) 08/09/24 07:06 Neut % (Auto) 72.0 % 08/09/24 07:06 Lymph % (Auto) 16.1 % 08/09/24 07:06 [place] % (Auto) 4.8 % 08/09/24 07:06 Eos % (Auto) 0.8 % 08/09/24 07:06 Baso % (Auto) 0.6 % 08/09/24 07:06 Neut # (Auto) 15.25 10^3/uL (1.8-7.7) H 08/09/24 07:06 Lymph # (Auto) 3.4 10^3/uL (0.8-4.8) 08/09/24 07:06 [place] # (Auto) 1.0 10^3/uL (0.2-0.9) H 08/09/24 07:06 Eos # (Auto) 0.2 10^3/uL (0.0-0.8) 08/09/24 07:06 Baso # (Auto) 0.1 10^3/uL (0.0-0.1) 08/09/24 07:06 Nucleated RBC % (auto) 0.1 % 08/09/24 07:06 Nucleated RBCs # 0.0 /100WBC 08/09/24 07:06 PT 13.80 SECONDS (12.1-14.9) 08/09/24 07:06 INR 1.00 (0.8-1.2) 08/09/24 07:06 APTT 33.7 SECONDS (23.9-36.7) 08/09/24 07:06 Specimen Type Arterial 08/09/24 07:31 Sample Site Brachial, right 08/09/24 07:31 ABG pH 7.36 (7.35-7.45) 08/09/24 07:31 ABG pCO2 31.9 mmHg (35-45) L 08/09/24 07:31 ABG pO2 60.9 mmHg (80.0-100.0) L 08/09/24 07:31 ABG PO2/FiO2 Ratio 138 08/09/24 07:31 ABG HCO3 17.9 mmol/L (22-26) L 08/09/24 07:31 ABG O2 Saturation 90.5 08/09/24 07:31 ABG Base Excess -6.6 mmol/L (-2.0-2.0) L 08/09/24 07:31 Juwan Test N/a 08/09/24 07:31 A-a O2 Gradient 27.3 mmHg (5-10) H 08/09/24 07:31 Hematocrit 38.6 % (37-47) 08/09/24 07:31 Hgb O2 Saturation 89.0 % (95-100) L 08/09/24 07:31 Carboxyhemoglobin 0.9 %THgb (0.4-20.1) 08/09/24 07:31 Methemoglobin 0.8 % (0.4-1.5) 08/09/24 07:31 Total Hemoglobin 12.6 g/dL (12-16) 08/09/24 07:31 Sodium 139.0 mmol/L (131-143) 08/09/24 07:31 Potassium 3.2 mmol/L (3.5-5.0) L 08/09/24 07:31 Glucose 206.0 mg/dL (70-115) H 08/09/24 07:31 Ionized Calcium 1.2 mmol/L (1.1-1.4) 08/09/24 07:31 O2 Delivery Device Nc 08/09/24 07:31 O2 Liters/Min 6.0 % 08/09/24 07:31 FiO2 44.0 % 08/09/24 07:31 Formation Fracturing Operator ID [id number] 08/09/24 07:31 Sodium 141 mmol/L (136-145) 08/09/24 07:06 Potassium 3.7 mmol/L (3.5-5.1) 08/09/24 07:06 Chloride 104 mmol/L (98-107) 08/09/24 07:06 Carbon Dioxide 22 mmol/L (22-29) 08/09/24 07:06 Anion Gap 18.7 (5-19) 08/09/24 07:06 BUN 22 mg/dL (8-23) 08/09/24 07:06 Creatinine 0.7 mg/dL (0.5-0.9) 08/09/24 07:06 GFR Calculation Not Reportable 08/09/24 07:06 Glucose 135 mg/dL (65-115) H 08/09/24 07:06 POC Glucose 129 mg/dL (70-110) H 08/09/24 07:11 Calculated Osmolality 297 mOsm/kg (285-295) H 08/09/24 07:06 Lactic Acid 7.0 mmol/L (0.5-2.2) H* 08/09/24 07:06 Calcium 9.4 mg/dL (8.5-10.5) 08/09/24 07:06 Magnesium 2.1 mg/dL (1.7-2.3) 08/09/24 07:06 Total Bilirubin 0.4 mg/dL (0.15-1.2) 08/09/24 07:06 AST 27 U/L (0-32) 08/09/24 07:06 ALT 22 U/L (0-33) 08/09/24 07:06 Alkaline Phosphatase 127 U/L (35-105) H 08/09/24 07:06 Ammonia 32 umol/L (11-51) 08/09/24 07:06 Creatine Kinase 96 U/L (26-192) 08/09/24 07:06 Total Protein 6.9 g/dL (6.6-8.7) 08/09/24 07:06 Albumin 3.6 g/dL (3.5-5.2) 08/09/24 07:06 Globulin 3.3 g/dL (1.3-4.6) 08/09/24 07:06 All radiology interpretation(s) finalized by discharge Discharge Plan Discharge Patient Disposition: Clinical Impression: Septic shock, Alzheimer's dementia Condition: Stable Prescriptions: No Action famotidine [Pepcid] 20 mg tablet 20 mg PO DAILY@12 fluticasone propionate [Flonase Allergy Relief] 50 mcg/actuation spray,suspension 1 spray INTRANASAL BID PRN (Reason: Allergy Symptoms) ferrous sulfate [FeroSul] 325 mg (65 mg iron) tablet 325 ea PO BID furosemide 40 mg tablet 40 tab PO DAILY potassium citrate 10 mEq (1,080 mg) tablet extended release 10 tab PO DAILY Rx Instructions: take one tablet by mouth daily with furosemide polyethylene glycol 3350 17 gram powder in packet 1 ea PO DAILY bisacodyl 10 mg suppository 10 ea AR BID PRN (Reason: Constipation) tramadol 50 mg tablet 50 mg PO TID PRN (Reason: pain) Qty: 90 5RF calcium carbonate [Calcium 600] 600 mg calcium (1,500 mg) Tablet 600 mg PO DAILY@12 citalopram 10 mg tablet 5 mg PO DAILY PRN (Reason: anxiety/alzheimers) magnesium hydroxide [Milk of Magnesia] 400 mg/5 mL Suspension 30 ml PO DAILY PRN (Reason: Constipation) hydroxyzine HCl 25 mg tablet 25 mg PO BID PRN (Reason: Itching) lorazepam 0.5 mg tablet 0.5 mg PO TID PRN (Reason: anxiety) acetaminophen [Tylenol] 325 mg Tablet 650 mg PO Q6H PRN (Reason: Pain) quetiapine 25 mg Tablet 25 mg PO BEDTIME Qty: 30 0RF sennosides-docusate sodium [Stool Softener-Laxative] 8.6-50 mg Tablet 1 tab PO DAILY Qty: 30 0RF metoprolol succinate 50 mg tablet extended release 24 hr 50 mg PO DAILY@12 Qty: 30 0RF aspirin 325 mg tablet,delayed release (DR/EC) 325 mg PO DAILY Qty: 30 0RF Referrals: Bello Pavon DO [Primary Care Provider, Family Practice] Print Language: [place] Coding Level of Care Code ED Cement Tile Maker for Darius Bowers
[2024-08-09 07:17] LABS: Basophils # 0.1 10^3/uL (0.0-0.1); Basophils % 0.6 %; Eosinophils # 0.2 10^3/uL (0.0-0.8); Eosinophils % 0.8 %; Hematocrit 41.6 % (36-47); Lymphocytes # 3.4 10^3/uL (0.8-4.8); Lymphocytes % 16.1 %; Mean Corpuscular HGB Conc 31.5 g/dL (30-55); Mean Corpuscular Hemoglobin 30.4 pg (27-33); Mean Corpuscular Volume 96.5 fl (85-98); Mean Platelet Volume 10.2 fL (7.4-10.4); Monocytes % 4.8 %; Neutrophils # 15.25 10^3/uL (1.8-7.7); Nucleated Red Blood Cells % 0.1 %; Platelet Count 334 10^3/cmm (157-399); Red Blood Count 4.31 10^6/uL (3.85-5.65); Red Cell Distribution Width 14.7 % (12.1-15.1); White Blood Count 21.18 10^3/uL (3.29-11.43)
[2024-08-09 07:25] VITALS: BP 67/52; PULSE 80; O2SAT 93
--- NOTE | 2024-08-09 07:25 | PC.NURSE ---
STROKE ALERT CANCELLED ON PT PER DR. PURVIS. UNABLE TO ACCURATELY OBTAIN NIH STROKE SCALE DUE TO PT RAPID DETERIORATION OF MENTATION AND ABILITY TO FOLLOW COMMANDS. DR. PURVIS NOTIFIED.
[2024-08-09 07:29] LABS: Alanine Aminotransferase 22 U/L (0-33); Albumin Level 3.6 g/dL (3.5-5.2); Alkaline Phosphatase 127 U/L (35-105); Anion Gap 18.7 (5-19); Aspartate Amino Transferase 27 U/L (0-32); Blood Urea Nitrogen 22 mg/dL (8-23); Calcium 9.4 mg/dL (8.5-10.5); Carbon Dioxide 22 mmol/L (22-29); Chloride 104 mmol/L (98-107); Creatinine Clr Calc Pharmacy 39.0486; Globulin 3.3 g/dL (1.3-4.6); Glucose 135 mg/dL (65-115); Magnesium 2.1 mg/dL (1.7-2.3); Osmolality Calculated 297 mOsm/kg (285-295); Potassium 3.7 mmol/L (3.5-5.1); Sodium 141 mmol/L (136-145); Total Bilirubin 0.4 mg/dL (0.15-1.2); Total Protein 6.9 g/dL (6.6-8.7)
[2024-08-09] MEDS: sodium chloride 0.9% 1,769.01 ML 1769.01 ML IV (07:29)
[2024-08-09 07:30] VITALS: BP 62/42; PULSE 79; O2SAT 91
[2024-08-09 07:36] LABS: Partial Thromboplastin Time 33.7 SECONDS (23.9-36.7)
[2024-08-09 07:38] LABS: Ammonia 32 umol/L (11-51)
[2024-08-09 07:39] LABS: Glucose Point of Care 129 mg/dL (70-110)
[2024-08-09 07:41] LABS: ABG PCO2 31.9 mmHg (35-45); ABG PH Result 7.36 (7.35-7.45); Alveolar-Arterial Oxygen Gradi 27.3 mmHg (5-10); Arterial Blood Gas Hematocrit 38.6 % (37-47); Base Excess ABG -6.6 mmol/L (-2.0-2.0); Blood Gas Operator Identificat AMH; Blood Gas Sample Site Brachial, right; Blood Gas Sample Type Arterial; Carboxyhemoglobin 0.9 %THgb (0.4-20.1); HCO3 ABG 17.9 mmol/L (22-26); Ionized Calcium Level - ABG 1.2 mmol/L (1.1-1.4); Methemoglobin 0.8 % (0.4-1.5); Oxygen Device NC; Oxygen Saturation ABG 90.5; PO2 ABG 60.9 mmHg (80.0-100.0); PO2 FiO2 Ratio Arterial Blood 138; Potassium Level - ABG 3.2 mmol/L (3.5-5.0); Total Hemoglobin 12.6 g/dL (12-16)
[2024-08-09 07:41] LABS: Creatine Phosphokinase 96 U/L (26-192)
[2024-08-09 07:53] LABS: Slide Review Slide Review Perform
[2024-08-09 08:00] VITALS: PULSE 75; O2SAT 96
[2024-08-09 08:59] LABS: Reflex Lactate Order REFLEX LACTIC ORDERD
== END 2024-08-09 08:38 | disposition expired ==
PROVIDERS: Emergency Provider Family Medicine; PCP Family Medicine
DX: A41.9 Sepsis, unspecified organism (principal); R65.21 Severe sepsis with septic shock; G30.9 Alzheimer's disease, unspecified; F02.80 Dementia in other diseases classified elsewhere, unspecified severity, without behavioral disturbance, psychotic disturbance, mood disturbance, and anxiety; Z79.82 Long term (current) use of aspirin
CPT/HCPCS: 36415; 36416; 36600; 51702; 70450; 80051; 80053; 82140; 82330; 82550; 82805; 82962; 83605; 83735; 85025; 85610; 85730; 87040; 93005; 96360; 99285; 99291; 99292; J7030